=== PATIENT | female | born 1935 | race Caucasian/White ===

== ENCOUNTER 2017-09-09 11:34 | Observation (INO) ==
--- NOTE | 2017-09-09 12:17 | Emergency Department Note ---
Disposition Clinical Impression: DVT (deep venous thrombosis) Qualifiers: DVT location: lower extremity Affected thrombotic vein of extremity: unspecified vein of extremity Chronicity: acute Laterality: left Qualified Code( s): I82.402 - Acute embolism and thrombosis of unspecified deep veins of left lower extremity Anemia Qualifiers: Anemia type: other cause Other causes of anemia: other cause, not classified Qualified Code(s): D64.89 - Other specified anemias Hematuria Qualifiers: Hematuria type: gross Qualified Code(s): R31.0 - Gross hematuria GI bleeding Qualifiers: GI bleed type/associated pathology: unspecified gastrointestinal hemorrhage type Qualified Code(s): K92.2 - Gastrointestinal hemorrhage, unspecified Disposition: Admitted As Inpatient Condition: Good Time of Disposition: 15:15 General Adult HPI - General Chief complaint: ED Extremity Problem,Nontraumatic Stated complaint: DVT left leg/need filter Time Seen by Provider: 09/09/17 11:51 Source: patient Nursing Notes Reviewed: Yes Vital Signs Reviewed: Yes - History of Present Illness HPI Narrative: The patient is 82-year-old female with a past medical history of bladder cancer , hypertension, and DVT who presents today per her oncologist to have a filter placed in her left lower extremity. The patient states that last Friday she had the Doppler ultrasound on the left lower extremity that showed she had a DVT. She states that she was on Xarelto for one day but began having blood in her urine and was instructed to stop taking it by Dr. Andrew. The patient states that she saw Dr. Montoya yesterday and was instructed to take 1/2 of her Xarelto. She began having blood in her urine last night and was instructed by to come to the ED to have a filter placed in her left lower extremity since she cannot be anticoagulated. The patient admits blood in her urine for one day, increasing pressure to urinate and dysuria for approximately one week. She also admits her last radiation treatment was this past May. Patient denies any headache, vision changes, chest pain, shortness of breath, difficulty breathing, abdominal pain, numbness and tingling, vaginal discharge, weaknesses, or any focal neurological deficits. Pain Scale: 2 - Related Data Home Medications Medication Instructions Recorded Confirmed Aspirin [Lo-Dose Aspirin EC] 81 mg PO DAILY 04/22/17 09/08/17 Levothyroxine [Synthroid] 75 mcg PO DAILY 04/22/17 09/08/17 Atorvastatin [Lipitor] 40 mg PO DAILY 05/25/17 09/08/17 Isosorbide MONOnitrate (24 HR) 60 mg PO DAILY 05/25/17 09/08/17 [Imdur] Metoprolol XL (24 HR) Succ [Toprol 25 mg PO DAILY 05/25/17 09/08/17 Xl] Nitroglycerin [Nitrostat] 0.4 mg SL AD PRN 08/26/17 09/08/17 amLODIPine [Norvasc] 5 mg PO DAILY 08/26/17 09/08/17 Previous Rx's Medication Instructions Recorded Ondansetron [Zofran] 8 mg PO Q8HR PRN #60 tablet 05/05/17 Oxybutynin [Ditropan] 2.5 mg PO BID #30 tablet 06/11/17 Allergies Allergy/AdvReac Type Severity Reaction Status Date / Time Amoxicillin Allergy Unknown UNKNOWN Verified 09/09/17 11:50 cephalexin [From Keflex] Allergy Unknown UNKNOWN Verified 09/09/17 11:50 Penicillins Allergy Unknown UNKNOWN Verified 09/09/17 11:50 Review of Systems: Constitutional: No fever Vision: No blurred vision ENT: No rhinorrhea Respiratory: No cough Allergic: No allergies : Admits blood in her urine that started last night since she started a 1/2 dose of Xarelto. Admits dysuria and increase in pressure when urination. Denies difficulty urinating. GI: Denies blood in stool but is unsure due to the blood in urine Hematologic: No bruising Dermatologic: No skin rash Musculoskeletal: No pain in the extremities. Admits stinging sensation in her LLE where she has a DVT but no pain. Denies any weaknesses or difficulty ambulating. Neuro: No numbness of the extremities All systems ED: reviewed and negative except as stated. Review of Systems: As Per HPI Past Medical History - Past Medical History Medical history: Reports: cancer, DVT, GERD, hyperlipidemia, hypertension, myocardial infarction, renal disease, thyroid disease Surgical history: Reports: appendectomy, hysterectomy Psychiatric history: Reports: no psych history - Social History Smoking Status: Former smoker Smokeless Tobacco Status: No Alcohol use: Reports: none Drug use: Reports: none Physical Exam CONSTITUTIONAL: Alert and oriented X3, well-nourished, well appearing, in no apparent distress HEAD: Normocephalic; atraumatic. EYES: PERRL, no scleral icterus. NOSE: The nose is normal in appearance without rhinorrhea RESP: Normal chest excursion with respiration; breath sounds clear and equal bilaterally; no wheezes, rhonchi, or rales CARD: Regular rhythm, without murmurs, rub or gallop ABD: Non-distended; non-tender, soft,without rigidity, rebound or guarding SKIN: Normal for age and race; warm and dry; no apparent lesions EXTREMITIES: Pulses are 2 plus and equal times 4 extremities, no peripheral edema or calf muscle pain. - General General appearance: alert, in no apparent distress - Rectal Exam Target Worker present during exam: Yes (My nurse (Alexandria) was present) Rectal exam: Present: heme (+) stool, bloody stool Course Vital Signs Temperature 97.3 F L 09/09/17 11:46 Pulse Rate 64 09/09/17 11:46 Respiratory Rate 16 09/09/17 11:46 Blood Pressure 151/78 09/09/17 11:46 O2 Sat by Pulse Oximetry 99 09/09/17 11:46 Temperature 97.8 F 09/09/17 13:39 Pulse Rate 62 09/09/17 14:51 Respiratory Rate 19 09/09/17 14:51 Blood Pressure 155/65 09/09/17 14:51 O2 Sat by Pulse Oximetry 97 09/09/17 14:51 Oxygen Delivery Oxygen Delivery Room Air Medical Decision Making - [facility] Narrative Medical decision making narrative: Vitals are reviewed and are exceptionally normal. Patient is afebrile and does not appear to be in any acute distress. Labs and UA are pending to further evaluate her hematuria. CBC shows her Hgb is trending down from 8.4 to 8.1 but patient is asymptomatic. 13:40- Reassessed the patient. She denies any pain and is comfortable. Spoke with Dr. Foley who is accepting calls for Dr. Ortega. Waiting for her to call back to decide whether to admit or not. Plan to have IR place a filter in the patient's LLE and admit for observation. 13:54- Spoke to Dr. Paul from IR and he states that the IR team will see the patient. Will put consult in. 14:18- Patient will have a filter placed in her LLE and will be admitted for observation since her HgB is trending down. has accepted the patient. 14:41- radiology report from [facility] was faxed over. Duplex scan impressions states deep venous thrombus involving the left popliteal vein , gastronemius, peroneal vein, and posterior tibial vein - Lab Data Lab results reviewed: Yes I reviewed the patient's lab results. Result diagrams: 09/09/17 12:55 Lab Results 09/09/17 09/09/17 09/09/17 Range/Units 12:40 12:55 13:38 WBC 5.8 (4.3-11.1) K/mcL RBC 2.71 L (3.82-4.97) M/mcL Hgb 8.1 L (11.5-15.4) g/dL Hct 25.9 L (35.3-44.9) % MCV 95.6 (83.0-100.0) fL MCH 29.9 (28.0-33.3) pg MCHC 31.3 L (31.6-35.5) g/dL RDW 14.4 (11.5-14.5) % Plt Count 233 (140-400) K/mcL MPV 8.9 L (9.4-12.4) fL Immature Gran % 0.5 (0-4) % Seg Neutrophils % 71.0 % Lymphocytes % 12.7 % Monocytes % 10.4 % Eosinophils % 4.9 % Basophils % 0.5 % Neutrophils # 4.1 (1.6-8.9) K/mcL Lymphocytes # 0.7 (0.6-4.6) K/mcL Monocytes # 0.6 (0.0-1.3) K/mcL Eosinophils # 0.3 (0.0-0.6) K/mcL Basophils # 0.0 (0.0-0.2) K/mcL Ur Specimen Adequacy See below A Urine Color Red A (Yellow) Urine Clarity Cloudy A (Clear) Urine pH 6.5 (5.0-8.0) pH Units Ur Specific [place] 1.015 (1.010-1.025) Urine Protein >=300 H (Neg-Trace) mg/dL Urine Glucose (UA) Normal (Normal) mg/dL Urine Ketones Negative (Negative) mg/dL Urine Blood Large H (Negative) Urine Nitrite Negative (Negative) Urine Bilirubin Negative (Negative) Urine Urobilinogen Normal (Normal) mg/dL Ur Leukocyte Esterase Trace H (Negative) Ur Culture Indicated? YES A (NO) Stool Occult Blood Positive A (Negative) Attestation Statement - Attestation Attestation: I examined this patient and my medical decision-making was reviewed with the Resident Physician. I agree with the documented findings, disposition and treatment plan as described except to the extent set forth below. Hemodynamically normal, asymptomatic gradually worsening anemia. En route to [facility] now, to be admitted per recommendation of pt's oncologist. Pt and her son have been updated, are agreeable.
[2017-09-09 13:02] LABS: Basophils % 0.5 %; Eosinophils # 0.3 K/mcL (0.0-0.6); Eosinophils % 4.9 %; Hematocrit 25.9 % (35.3-44.9); Hemoglobin 8.1 g/dL (11.5-15.4); Immature Granulocytes % 0.5 % (0-4); Lymphocytes # 0.7 K/mcL (0.6-4.6); Lymphocytes % 12.7 %; Mean Corpuscular HGB Conc 31.3 g/dL (31.6-35.5); Mean Corpuscular Hemoglobin 29.9 pg (28.0-33.3); Mean Corpuscular Volume 95.6 fL (83.0-100.0); Mean Platelet Volume 8.9 fL (9.4-12.4); Monocytes # 0.6 K/mcL (0.0-1.3); Monocytes % 10.4 %; Neutrophils # 4.1 K/mcL (1.6-8.9); Platelet Count 233 K/mcL (140-400); Red Blood Count 2.71 M/mcL (3.82-4.97); Red Cell Distribution Width 14.4 % (11.5-14.5)
[2017-09-09 14:00] LABS: Clarity,Urine Cloudy (Clear); Color,Urine Red (Yellow)
[2017-09-09 14:01] LABS: Bilirubin,Urine Negative (Negative); Blood,Urine Large (Negative); Glucose,Urine (UA) Normal (Normal); Ketones,Urine Negative (Negative); Leukocyte Esterase,Urine Trace (Negative); Nitrite,Urine Negative (Negative); PH,Urine 6.5 pH Units (5.0-8.0); Protein,Urine >=300 mg/dL (Neg-Trace); Specific Gravity,Urine 1.015 (1.010-1.025); Urobilinogen,Urine Normal (Normal)
[2017-09-09] MEDS ORDERED: Heparin 1,000 UNITS/500 mL NS 500 ML ONE (14:29)
--- NOTE | 2017-09-09 15:01 | IR Procedure Note ---
Date of procedure: 09/09/17 Consent Obtained: Written consent Timeout: Correct patient and procedure verified, Correct site verified, Time out performed, Skin prep completed Local anesthetic: Lidocaine 1% Indications: GI bleed with DVT on Xeralto Procedure Performed: IVC filter and CVL placement Results/Findings: Celect filter and 7F CVL placement Complications: None; Tolerated procedure well (Monitor on floor)
[2017-09-09] MEDS ORDERED: Acetaminophen 325 MG TABLET PO PRN (15:37)
[2017-09-09] MEDS ORDERED: Naloxone 0.4 MG/ML INJ IVP PRN (15:37)
[2017-09-09] MEDS ORDERED: Ondansetron 4 MG/2 ML VIAL IVP PRN (15:37)
--- NOTE | 2017-09-09 17:16 | Internal Med History&Physical ---
<Bety Atkinson - Last Filed: 09/09/17 23:38> Date of Encounter: 09/09/17 Time of Encounter: 17:08 Assessment and Plan (1) Anemia Current visit: Yes Status: Acute The patient presented with hemoglobin of 8.1 and experiencing hematuria. Steady decline over the past couple days yesterday was 8.4 on the 12th it was 9. Patient was on Xarelto due to a DVT. We will type and screen for PRBCs transfuse 1 unit. We will like to maintain hemoglobin greater than 9 due to cardiac history 2 Stop Xarelto IVC filter placed we will hold aspirin for now as well 3 GI consult placed- day team to follow up Qualifiers: Anemia type: other cause Other causes of anemia: other cause, not classified Qualified Code(s): D64.89 - Other specified anemias (2) Bladder cancer Current visit: No Status: Chronic Patient received lot to radiation treatments in May. She is being followed by oncology which she will continue as an outpatient-consult as needed Qualifiers: Bladder location: unspecified site Qualified Code(s): C67.9 - Malignant neoplasm of bladder, unspecified (3) CAD (coronary artery disease) Current visit: No Status: Chronic 1 patient did have a non-STEMI earlier this year. No stent placement. We will continue with statin shreyas and nitrates. Withhold aspirin now for hematuria 2 continuous cardiac monitoring Qualifiers: Coronary Disease-Associated Artery/Lesion type: [place] artery [place] vs. transplanted heart: [place] heart Associated angina: without angina Qualified Code(s): I25.10 - Atherosclerotic heart disease of [place] coronary artery without angina pectoris (4) Hypothyroidism Current visit: No Status: Chronic Continue with Synthroid Qualifiers: Hypothyroidism type: unspecified Qualified Code(s): E03.9 - Hypothyroidism , unspecified (5) DVT (deep venous thrombosis) Current visit: Yes Status: Acute Patient is unable to takeXarelto due to bleeding. IVC filter has been placed Qualifiers: DVT location: lower extremity Affected thrombotic vein of extremity: unspecified vein of extremity Chronicity: acute Laterality: left Qualified Code(s): I82.402 - Acute embolism and thrombosis of unspecified deep veins of left lower extremity (6) Hematuria Current visit: Yes Status: Acute 1 patient began to experience gross hematuria after taking Xarelto we will stop Xarelto, continue to monitor Qualifiers: Hematuria type: gross Qualified Code(s): R31.0 - Gross hematuria (7) GI bleeding Current visit: Yes Status: Acute 1 patient denies any hematochezia or melena. She did have positive occult stool and ER. She has been on Xarelto-hemoglobin is 8.1 which had been trending down with past few days. We will hold Xarelto and transfuse PRBCs and continue to monitor H&H. The patient has not had a EGD or colonoscopy in several years. Qualifiers: GI bleed type/associated pathology: unspecified gastrointestinal hemorrhage type Qualified Code(s): K92.2 - Gastrointestinal hemorrhage, unspecified (8) CKD (chronic kidney disease), stage III Current visit: Yes Status: Acute 1 patient had a right nephrectomy several years ago creatinine is at baseline presently. We will continue to monitor Avoid nephrotoxins Maintain MAP greater than 60 Monitor intake and output daily weights (9) Hypertension Current visit: No Status: Chronic Presently stable we will continue with home medications amlodipine and metoprolol Qualifiers: Hypertension type: essential hypertension Qualified Code(s): I10 - Essential (primary) hypertension Internal Medicine - H&P: HPI Chief complaint: Hematuria Admitted From: Emergency Dept Plans for Post Hospital Care: Home History of present illness: Ms. Tamez is a 82 year old female past medical history of GERD and hyperlipidemia hypertension non-STEMI 03/2017 renal disease thyroid disease bladder cancer DVT. Coronary the patient she has been undergoing treatment for bladder cancer she received her last radiation treatment in May of this year. On Friday she had a Doppler ultrasound of lower extremity which did not show a DVT left popliteal vein gastonemis paroneal vein posterior tibial vein. She was placed on Xarelto however after one day she began to experience hematuria she was advised by Dr. Andrew to stop taking Xarlto . She saw Dr Montoya yesterday at that time was advised to take half of her Xarelto. She again began to experience hematuria overnight she was then advised by Dr. Ferrell to come to the ER and have a IVC filter placed since she is unable to tolerate anticoagulation. Patient denies any chest pain shortness of breath abdominal pain nausea vomiting, she does admit to increasing pressure when she urinates and dysuria which has been going on for approximately a week. She denies any hematemesis hematochezia or melena. Her Hemoccult was positive in the ER She has not had an EGD her last colonoscopy was several years ago and she does not recall the results. She has been admitted for further workup and evaluation. Presently she is hemodynamically with no signs or symptoms of active bleeding she denies any chest pain or shortness of breath. I reviewed this case with Dr. Rodrigues who agrees with plan. Past Med Surg Social Fam HX - Past Medical History Medical history: cancer, DVT, GERD, hyperlipidemia, hypertension, myocardial infarction, renal disease, thyroid disease Psychiatric history: no psych history - Past Surgical History Surgical History: appendectomy, hysterectomy - Social History Smoking Status: Former smoker Smokeless Tobacco Status: No Alcohol use: none Drug use: none - Family History Brother Hx Family Endocrine Disorder: Yes (DM) Internal Medicine - H&P: Meds Aspirin [Lo-Dose Aspirin EC] 81 mg PO DAILY 04/22/17 [History] Levothyroxine [Synthroid] 75 mcg PO QAM 04/22/17 [History] Atorvastatin [Lipitor] 40 mg PO HS 05/25/17 [History] Isosorbide MONOnitrate (24 HR) [Imdur] 60 mg PO DAILY 05/25/17 [History] Metoprolol XL (24 HR) Succ [Toprol Xl] 25 mg PO DAILY 05/25/17 [History] Oxybutynin [Ditropan] 2.5 mg PO BID #30 tablet 06/11/17 [Rx] Nitroglycerin [Nitrostat] 0.4 mg SL Q5M PRN 08/26/17 [History] amLODIPine [Norvasc] 5 mg PO DAILY 08/26/17 [History] 3 Allergy/AdvReac Type Severity Reaction Status Date / Time Amoxicillin Allergy Unknown UNKNOWN Verified 09/09/17 11:50 cephalexin [From Keflex] Allergy Unknown UNKNOWN Verified 09/09/17 11:50 Penicillins Allergy Unknown UNKNOWN Verified 09/09/17 11:50 All Systems PM: A 10-system review of systems was performed and is negative for pertinent findings except as documented above in the HPI. - Constitutional Constitutional: no chills, no fever(s), no night sweats - EENT Eyes: no change in vision, no discharge, no pain, no photophobia Nose, mouth and throat: no dysphagia, no nasal discharge, no neck pain, no sore throat - Cardiovascular Cardiovascular ROS IM: no chest pain, no diaphoresis, no dyspnea, no lightheadedness, no palpitations, no syncope - Respiratory Respiratory: no cough, no dyspnea, no wheezing, no excessive phlegm production - Gastrointestinal Gastrointestinal: no abdominal pain, no diarrhea, no hematemesis, no hematochezia, no melena, no nausea, no vomiting - Genitourinary Genitourinary: hematuria, urinary frequency, urinary urgency - Musculoskeletal Musculoskeletal ROS IM: no numbness, no tingling - Integumentary Integumentary IM: no rash, no unusual bruising - Neurological Neurological ROS: no confusion, no convulsions, no focal weakness, no numbness, no tingling, no tremor(s) - Hematologic/Lymphatic Hematologic/Lymphatic: no easy bruising - Constitutional Vitals: Temp Pulse Resp BP Pulse Ox 97.4 F L 82 18 136/67 97 09/09/17 15:24 09/09/17 15:24 09/09/17 15:24 09/09/17 15:24 09/09/17 15:24 General appearance: Present: A&O X 3, answers questions appropriately - Head Head exam: Present: atraumatic, normocephalic - Eye Eye exam: Present: PERRL, conjuntiva pink, sclera anicteric Pupils: Present: PERRL - Neck Neck exam general surgery: Present: supple, trachea midline. Absent: lymphadenopathy - Respiratory Respiratory exam: Present: CTAB. Absent: accessory muscle use, rales, rhonchi, wheezes - Cardiovascular Cardiovascular exam: Present: RRR, +S1, +S2, systolic murmur. Absent: diastolic murmur, gallop, rubs - GI/Abdominal GI/Abdominal exam: Present: normal bowel sounds, soft, no peritoneal signs. Absent: distended, tenderness - Extremities Exam Extremities exam: Present: warm, radial pulses palpable and symmetrical. Absent : calf tenderness, cyanotic, pedal edema - Neurological Exam Neurological exam: Present: CN II-XII intact, oriented X3, no focal deficits. Absent: pronater drift, facial droop, speech deficit - Skin Skin exam: Present: dry, intact, pallor Internal Med - H&P Results - Labs CBC & Chem 7: 09/09/17 19:38 - Diagnostic Studies Other Images Additional comments: Guidance Needle Placement Ultrasound 09/09/17 00:00 IMPRESSION: 1. Infrarenal inferior vena cava filter placement. 2. Right central venous line placement as discussed above. D/ / Kai Gonzalez MD / Kai Gonzalez MD Interpreting Provider: Kai Gonzalez MD Filter Placement 09/09/17 00:00 IMPRESSION: 1. Infrarenal inferior vena cava filter placement. 2. Right central venous line placement as discussed above. D/ / Kai Gonzalez MD / Kai Gonzalez MD Interpreting Provider: Kai Gonzalez MD Insertion Non-Tunneled Catheter 09/09/17 00:00 IMPRESSION: 1. Infrarenal inferior vena cava filter placement. 2. Right central venous line placement as discussed above. D/ / Kai Gonzalez MD / Kai Gonzalez MD Interpreting Provider: Kai Gonzalez MD <Doe Rodrigues - Last Filed: 09/10/17 09:30> Date of Encounter: 09/09/17 Internal Medicine - H&P: HPI History of present illness: Ms. Tamez is a 82 year old female All Systems PM: A 10-system review of systems was performed and is negative for pertinent findings except as documented above in the HPI. - Constitutional Vitals: Temp Pulse Resp BP Pulse Ox 97.4 F L 82 18 136/67 97 09/09/17 15:24 09/09/17 15:24 09/09/17 15:24 09/09/17 15:24 09/09/17 15:24 Internal Med - H&P Results - Labs CBC & Chem 7: 09/10/17 05:41 09/10/17 05:41 - Attending Attestation I independently obtained history and examined this patient and my medical decision-making was reviewed with the nurse practitioner, Bety Atkinson. I agree with the documented findings, disposition and treatment plan as described. My findings are summarized below: Patient is in no acute distress. Heart is regular, lungs are clear. No significant lower extremity edema appreciated. Plan: Hold anticoagulation. Transfuse 1 unit PRBC. Consult gastroenterology.
[2017-09-09] MEDS ORDERED: Nitroglycerin 0.4 MG TAB.SUBL SL PRN (17:20)
[2017-09-09 20:05] LABS: Hematocrit 23.1 % (35.3-44.9); Hemoglobin 7.3 g/dL (11.5-15.4)
--- NOTE | 2017-09-09 20:05 | Event Note ---
Date of Encounter: 09/09/17 Time of Encounter: 20:03 I independently obtained history and examined this patient and my medical decision-making was reviewed with the nurse practitioner. I agree with the documented findings, disposition and treatment plan as described. My findings are summarized below: Patient reports several days of dark urine, generalized weakness. She was found to have gross hematuria she after she was started on treatment with Xarelto for lower extremity DVT. On exam she is in no acute distress. Heart is regular. Lungs are clear. Lower extremity with no significant edema. Plan: Stop anticoagulation. She had a IVC filter placed this morning. We will transfuse 1 unit PRBC. Check hemoglobin in the morning. Consult GI due to anemia and positive fecal occult blood testing. Doe Rodrigues MD
[2017-09-09] MEDS: Pantoprazole 40 MG VIAL IVP SCH (22:08)
[2017-09-10] MEDS ORDERED: 0.9 % Sodium Chloride 250 ML ONE (01:01)
[2017-09-10] MEDS: Pantoprazole 40 MG VIAL IVP SCH (05:34)
[2017-09-10 05:58] LABS: Basophils # 0.1 K/mcL (0.0-0.2); Basophils % 0.9 %; Eosinophils # 0.4 K/mcL (0.0-0.6); Eosinophils % 5.3 %; Hematocrit 27.2 % (35.3-44.9); Hemoglobin 8.6 g/dL (11.5-15.4); Immature Granulocytes % 0.5 % (0-4); Lymphocytes # 0.7 K/mcL (0.6-4.6); Lymphocytes % 11.1 %; Mean Corpuscular HGB Conc 31.6 g/dL (31.6-35.5); Mean Corpuscular Hemoglobin 29.5 pg (28.0-33.3); Mean Corpuscular Volume 93.2 fL (83.0-100.0); Mean Platelet Volume 9.2 fL (9.4-12.4); Monocytes # 0.8 K/mcL (0.0-1.3); Neutrophils # 4.7 K/mcL (1.6-8.9); Platelet Count 205 K/mcL (140-400); Red Blood Count 2.92 M/mcL (3.82-4.97); Red Cell Distribution Width 14.5 % (11.5-14.5); Segmented Neutrophils % 70.2 %
[2017-09-10 06:07] LABS: Calcium 9.3 mg/dL (8.6-10.8); Potassium 4.2 mEq/L (3.5-4.5)
[2017-09-10] MEDS ORDERED: amLODIPine 5 MG TABLET PO SCH (09:00)
[2017-09-10] MEDS ORDERED: Metoprolol XL (24 HR) Succ 25 MG TAB.ER.24H PO SCH (09:00)
[2017-09-10] MEDS ORDERED: Isosorbide MONOnitrate (24 HR) 60 MG TAB.ER.24H PO SCH (09:00)
[2017-09-10 14:20] VITALS: BP 115/68
--- NOTE | 2017-09-10 14:46 | Discharge Summary ---
Date of Encounter: 09/10/17 Time of Encounter: 09:00 - Discharge Diagnosis (1) S/P insertion of IVC (inferior vena caval) filter Priority: Primary Status: Acute (2) Hematuria Priority: Primary Status: Acute Qualifiers: Hematuria type: gross Qualified Code(s): R31.0 - Gross hematuria (3) Bladder cancer Priority: Secondary Status: Chronic Qualifiers: Bladder location: unspecified site Qualified Code(s): C67.9 - Malignant neoplasm of bladder, unspecified (4) Diabetes mellitus Priority: Secondary Status: Chronic Qualifiers: Diabetes mellitus type: type 2 Diabetes mellitus complication status: with unspecified complications Diabetes mellitus intermediate insulin use: without intermediate use Qualified Code(s): E11.8 - Type 2 diabetes mellitus with unspecified complications (5) CAD (coronary artery disease) Priority: Secondary Status: Chronic Qualifiers: Coronary Disease-Associated Artery/Lesion type: [place] artery [place] vs. transplanted heart: [place] heart Associated angina: without angina Qualified Code(s): I25.10 - Atherosclerotic heart disease of [place] coronary artery without angina pectoris (6) Hypertension Priority: Secondary Status: Chronic Qualifiers: Hypertension type: essential hypertension Qualified Code(s): I10 - Essential (primary) hypertension (7) Hypothyroidism Priority: Secondary Status: Chronic Qualifiers: Hypothyroidism type: unspecified Qualified Code(s): E03.9 - Hypothyroidism , unspecified (8) Anemia Priority: Primary Status: Acute Qualifiers: Anemia type: other cause Other causes of anemia: acute posthemorrhagic Qualified Code(s): D62 - Acute posthemorrhagic anemia (9) DVT (deep venous thrombosis) Priority: Secondary Status: Chronic Qualifiers: DVT location: lower extremity Affected thrombotic vein of extremity: unspecified vein of extremity Chronicity: acute Laterality: left Qualified Code(s): I82.402 - Acute embolism and thrombosis of unspecified deep veins of left lower extremity (10) CKD (chronic kidney disease), stage III Priority: Secondary Status: Chronic - Discharge Medications Home Medications: Aspirin [Lo-Dose Aspirin EC] 81 mg PO DAILY 04/22/17 [History] Levothyroxine [Synthroid] 75 mcg PO QAM 04/22/17 [History] Atorvastatin [Lipitor] 40 mg PO HS 05/25/17 [History] Isosorbide MONOnitrate (24 HR) [Imdur] 60 mg PO DAILY 05/25/17 [History] Metoprolol XL (24 HR) Succ [Toprol Xl] 25 mg PO DAILY 05/25/17 [History] Oxybutynin [Ditropan] 2.5 mg PO BID #30 tablet 06/11/17 [Rx] Nitroglycerin [Nitrostat] 0.4 mg SL Q5M PRN 08/26/17 [History] amLODIPine [Norvasc] 5 mg PO DAILY 08/26/17 [History] Allergies/Adverse Reactions: 3 Allergy/AdvReac Type Severity Reaction Status Date / Time Amoxicillin Allergy Unknown UNKNOWN Verified 09/09/17 11:50 cephalexin [From Keflex] Allergy Unknown UNKNOWN Verified 09/09/17 11:50 Penicillins Allergy Unknown UNKNOWN Verified 09/09/17 11:50 Date of admission: 09/09/17 14:45 Primary care physician: Shan Amaya Consults: 09/10/17 07:31 Consult to Physical Therapy [CONS] Routine Comment: Evaluate, develop and implement POC Reason for Consult: discharge planning OT [Consult to Occupational Therapy] [CONS] Routine Comment: Evaluate, develop and implement POC Reason for Consult: discharge planning Discharging clinician: Ca Turner Anticipated date of discharge: 09/10/17 - Patient Status Disposition: Home, Self-Care Condition: Good Functional capacity at discharge: uses cane/walker Overall status at discharge: patient is progressing back to baseline - Discharge Instructions Follow Up With: Shan Amaya [Primary Care Provider] - 09/18/17 2:00 pm (Dr. Amaya will be out of the office and you will be seeing another provider that day. Thank you) Julio Montoya MD [Partnered Physician] - 10/01/17 9:20 am Additional Instructions: F/up with PCP in 1-2 weeks F/up with Oncology in 1 week - Diet and Activity Activity: as per physical therapy Diet: diabetic diet, low fat, low cholesterol, low salt diet Hospital course: Ms. Tamez is a 82 year old female with history of bladder cancer, presents with complaints of gross hematuria. Patient was recently diagnosed with left leg DVT around 2 weeks back and was started on anticoagulation with Xarelto, since when she has been having issues with bleeding. Xarelto is currently on hold. Patient received IVC filter by interventional radiology to prevent pulmonary embolism, as she is not a candidate for anticoagulation. Patient did well during this hospitalization, remained hemodynamically stable and her hemoglobin is stable after receiving 1 unit PRBC transfusion. Patient does have positive stool occult blood although does not report hematochezia or melena and will be followed by PCP, does not require urgent GI workup at this time. Patient is anxious to be discharged home today and is otherwise medically stable. - Time Spent with Patient Total time spent providing and/or coordinating discharge services: Greater than 30 minutes (40 min) - Constitutional Vitals: Temp Pulse Resp BP Pulse Ox 97.9 F 57 14 115/68 95 09/10/17 14:18 09/10/17 14:18 09/10/17 14:18 09/10/17 14:18 09/10/17 14:18 General appearance: Present: A&O X 3, answers questions appropriately - Respiratory Respiratory exam: Present: CTAB. Absent: accessory muscle use, rales, rhonchi, wheezes - Cardiovascular Cardiovascular exam: Present: RRR, +S1, +S2. Absent: diastolic murmur, gallop, rubs, systolic murmur
--- NOTE | 2017-09-10 14:50 | Physician Discharge Referral ---
Home Health/Hosp Referral Info Transfer to: Home Health Attending Provider: Ca Turner Provider in Charge Post Discharge: PCP - Diagnosis (1) S/P insertion of IVC (inferior vena caval) filter Priority: Primary Status: Acute (2) Hematuria Priority: Primary Status: Acute (3) Bladder cancer Priority: Secondary Status: Chronic (4) Diabetes mellitus Priority: Secondary Status: Chronic (5) CAD (coronary artery disease) Priority: Secondary Status: Chronic (6) Hypertension Status: Chronic (7) Hypothyroidism Priority: Secondary Status: Chronic (8) Anemia Priority: Primary Status: Acute (9) DVT (deep venous thrombosis) Priority: Secondary Status: Chronic (10) CKD (chronic kidney disease), stage III Priority: Secondary Status: Chronic - Respiratory Orders Smoking Cessation: Smoking cessation has been advised. For more information, call the [place] Tobacco Quit Line at 6-549-APWY-NOW. - Diet/Nutrition Diet/Nutrition Orders: Cardiac, No Concentrated Sweets (diabetic) - Activity Activity Orders: Ambulate, Walker - Services Needed Following services are medically necessary services: Nursing, Physical Therapy, Occupational Therapy - Transfer Medications Home Medications: Aspirin [Lo-Dose Aspirin EC] 81 mg PO DAILY 04/22/17 [History] Levothyroxine [Synthroid] 75 mcg PO QAM 04/22/17 [History] Atorvastatin [Lipitor] 40 mg PO HS 05/25/17 [History] Isosorbide MONOnitrate (24 HR) [Imdur] 60 mg PO DAILY 05/25/17 [History] Metoprolol XL (24 HR) Succ [Toprol Xl] 25 mg PO DAILY 05/25/17 [History] Oxybutynin [Ditropan] 2.5 mg PO BID #30 tablet 06/11/17 [Rx] Nitroglycerin [Nitrostat] 0.4 mg SL Q5M PRN 08/26/17 [History] amLODIPine [Norvasc] 5 mg PO DAILY 08/26/17 [History] Allergies/Adverse Reactions: 3 Allergy/AdvReac Type Severity Reaction Status Date / Time Amoxicillin Allergy Unknown UNKNOWN Verified 09/09/17 11:50 cephalexin [From Keflex] Allergy Unknown UNKNOWN Verified 09/09/17 11:50 Penicillins Allergy Unknown UNKNOWN Verified 09/09/17 11:50 Certification: Further, I certify that my clinical findings support that this patient is homebound (i.e. absences from home require considerable and taxing effort and are for medical reasons or taoist services or infrequently or short duration when for other reasons) because: Homebound Reason: Patient requires assistance of a person or device to safely leave home, Leaving home requires considerable and taxing effort due to condition Attestation: My signature below is to certify that this patient is under my care and that I, or nurse practitioner, or a physician's optometric assistant working with me, has a face-to -face encounter with this patient.
== END 2017-09-10 16:15 | disposition home or self-care (01) ==
LOC: 3ANU 11:34 → EMEROO 11:34 → 3ANU 15:18
PROVIDERS: ADMIT Internal Medicine; ATTEND Internal Medicine

== ENCOUNTER 2017-12-09 18:30 | Inpatient (IN) ==
--- NOTE | 2017-12-09 21:26 | Internal Med History&Physical ---
<Daniel Avina - Last Filed: 12/09/17 23:59> Date of Encounter: 12/09/17 Time of Encounter: 21:21 Assessment and Plan (1) Anemia Current visit: Yes Status: Acute Patient is being transfused 2 units packed red blood cells from outlying facility. Patient's symptoms have improved. Repeat hemoglobin every 4 hours. Patient likely needs further investigation with regards to anemia. We will continue to monitor patient's vital signs and symptoms accordingly. Qualifiers: Anemia type: unspecified type Qualified Code(s): D64.9 - Anemia, unspecified (2) GI bleeding Current visit: Yes Status: Acute Patient has been experiencing history of GI bleed with current melena and hematochezia. Previous investigation demonstrated colitis where the patient finished Cipro and Flagyl roughly 1 month ago. The patient likely will need further imaging with regards to current GI bleeding but we will continue to monitor. Qualifiers: GI bleed type/associated pathology: unspecified gastrointestinal hemorrhage type Qualified Code(s): K92.2 - Gastrointestinal hemorrhage, unspecified (3) Acute on chronic renal failure Current visit: No Status: Acute The patient administered IV hydration through IV fluids. The patient does have chronic kidney disease stage III. Patient's creatinine is mildly elevated at this time. We will continue to monitor and likely trending back to baseline. Qualifiers: Acute renal failure type: unspecified Chronic kidney disease stage: stage 4 (severe) Qualified Code(s): N17.9 - Acute kidney failure, unspecified; N18.4 - Chronic kidney disease, stage 4 (severe) (4) Elevated troponin I level Current visit: No Status: Acute Patient has elevated troponin. There may be a component of associated with the patient's LESLIE but with concern for previous history of CAD and likely demand ischemia associated with patient's anemia we will continue to trend the patient' s troponin. The patient is currently chest pain-free. EKG demonstrates no acute changes from previous EKG on record. We will consult cardiology. (5) Bladder cancer Current visit: No Status: Chronic Qualifiers: Bladder location: unspecified site Qualified Code(s): C67.9 - Malignant neoplasm of bladder, unspecified (6) Diabetes mellitus Current visit: No Status: Chronic Qualifiers: Diabetes mellitus type: type 2 Diabetes mellitus complication status: with unspecified complications Diabetes mellitus retirement insulin use: without retirement use Qualified Code(s): E11.8 - Type 2 diabetes mellitus with unspecified complications (7) CAD (coronary artery disease) Current visit: No Status: Chronic Qualifiers: Coronary Disease-Associated Artery/Lesion type: [place] artery [place] vs. transplanted heart: [place] heart Associated angina: without angina Qualified Code(s): I25.10 - Atherosclerotic heart disease of [place] coronary artery without angina pectoris (8) Hypertension Current visit: No Status: Chronic Continue daily medications as prescribed. Qualifiers: Hypertension type: essential hypertension Qualified Code(s): I10 - Essential (primary) hypertension (9) Hypothyroidism Current visit: No Status: Chronic Continue daily medications as prescribed. Qualifiers: Hypothyroidism type: unspecified Qualified Code(s): E03.9 - Hypothyroidism , unspecified Internal Medicine - H&P: HPI Chief complaint: Weakness Admitted From: Hospital to Hospital Transfer Plans for Post Hospital Care: Home History of present illness: Ms. Tamez is a 82 year old female with history of bladder mass arrives as a transfer from [facility] [place] with concern for blood in stool and hemoglobin of 5.3. The patient states that she has been experiencing intermittent black and bloody stools over the course the past month. The patient states this worsened over the past few days and this morning was continuing. The patient states that there is some bright red blood but states it is mostly black and dark colored. The patient states that today she continued to experience a large amount of weakness to the point where she would stood up and she felt very weak and felt palpitations and slightly short of breath. In addition the patient noted that when she looked in the mirror she was very pale. He was at that time she called EMS. EMS transported the patient to [facility] [place] for further care and workup. At [facility] labs were drawn which demonstrated an anemia with a hemoglobin of 5.3. The patient's platelet count was 214, no leukocytosis, the patient does have an elevated BUNs of 20.0 as well as an elevated creatinine at 1.33. The patient's electrolytes are otherwise within normal limits. A CT scan of the patient's abdomen was performed at outlying facility which demonstrated a 6 cm mass like wall thickening of the anterior aspect of the urinary bladder. In addition there is noted inflammation and soft tissue thickening in the pelvis which may be associated with the post treatment. There is a history of right nephrectomy. There is an indeterminate at 5.6 cm stricture with in the hemipelvis noted to possible prior hysterectomy. No other acute changes noted with the exception of further evaluation of masses within the pelvis. Contrast CT was recommended per etiology read at [facility]. The patient was started and transfused 2 units of packed red blood cells. In addition the patient was noted to have an elevated troponin of 0.11. This is an elevation on a scale from their facility. The patient is denying any active chest pain at this time. She does state however that she did experience some intermittent episodes of chest pain during the episode of shortness of breath when she was ambulating earlier today. The patient states she is feeling much better after receiving the units of blood and is resting comfortably with no tachycardia, no hypotension and no oxygen desaturation. She is answering all questions appropriately and following all commands. Past Med Surg Social Fam HX - Past Medical History Attestation: Yes The following information was validated with the patient. Source: patient, old records reviewed Medical history: cancer, DVT, GERD, hyperlipidemia, hypertension, myocardial infarction, renal disease, thyroid disease Psychiatric history: no psych history - Past Surgical History Surgical History: appendectomy, hysterectomy - Social History Smoking Status: Former smoker Smokeless Tobacco Status: No Alcohol use: none Drug use: none Current living situation: Home Activity Level: Independent ambulation - Family History Brother Hx Family Endocrine Disorder: Yes (DM) Internal Medicine - H&P: Meds Aspirin [Lo-Dose Aspirin EC] 81 mg PO DAILY 04/22/17 [History] Levothyroxine [Synthroid] 75 mcg PO QAM 04/22/17 [History] Atorvastatin [Lipitor] 40 mg PO HS 05/25/17 [History] Isosorbide MONOnitrate (24 HR) [Imdur] 60 mg PO DAILY 05/25/17 [History] Nitroglycerin [Nitrostat] 0.4 mg SL Q5M PRN 08/26/17 [History] amLODIPine [Norvasc] 5 mg PO DAILY 08/26/17 [History] Lisinopril [Zestril] 5 mg PO DAILY 10/28/17 [History] 3 Allergy/AdvReac Type Severity Reaction Status Date / Time Amoxicillin Allergy Unknown UNKNOWN Verified 12/09/17 21:50 cephalexin [From Keflex] Allergy Unknown UNKNOWN Verified 12/09/17 21:50 Penicillins Allergy Unknown UNKNOWN Verified 12/09/17 21:50 All Systems PM: A 10-system review of systems was performed and is negative for pertinent findings except as documented above in the HPI. - Constitutional Constitutional: no chills, no fever(s), no night sweats - Cardiovascular Cardiovascular ROS IM: chest pain, dyspnea on exertion, lightheadedness, palpitations - Respiratory Respiratory: dyspnea on exertion, no cough, no wheezing - Gastrointestinal Gastrointestinal: abdominal pain, cramping, hematochezia, melena, no diarrhea, no hematemesis, no nausea, no vomiting - Genitourinary Genitourinary: urinary incontinence (Baseline), no change in urinary stream, no dysuria, no flank pain, no hematuria - Musculoskeletal Musculoskeletal ROS IM: no numbness, no tingling - Integumentary Integumentary IM: no rash, no unusual bruising - Neurological Neurological ROS: no confusion, no convulsions, no focal weakness, no numbness, no tingling, no tremor(s) - Constitutional Vitals: Temp Pulse Resp BP Pulse Ox 98.2 F 95 18 148/74 100 12/09/17 20:19 12/09/17 20:19 12/09/17 20:19 12/09/17 20:19 12/09/17 20:19 General appearance: Present: A&O X 3, pleasant, no acute distress - Head Head exam: Present: atraumatic, normocephalic - Eye Eye exam: Present: PERRL, conjuntiva pink, sclera anicteric Pupils: Present: PERRL - Neck Neck exam general surgery: Present: supple, trachea midline. Absent: lymphadenopathy - Respiratory Respiratory exam: Present: CTAB. Absent: accessory muscle use, rales, rhonchi, wheezes - Cardiovascular Cardiovascular exam: Present: RRR, +S1, +S2. Absent: diastolic murmur, gallop, rubs, systolic murmur - GI/Abdominal GI/Abdominal exam: Present: soft, tenderness (Lower abdomen), no peritoneal signs. Absent: distended, guarding, pulsatile mass, rebound, rigid - Extremities Exam Extremities exam: Present: warm, radial pulses palpable and symmetrical. Absent : calf tenderness, cyanotic, pedal edema - Neurological Exam Neurological exam: Present: CN II-XII intact, oriented X3, no focal deficits. Absent: pronater drift, facial droop, speech deficit - Skin Skin exam: Present: dry, intact Internal Med - H&P Results - Labs CBC & Chem 7: 12/09/17 22:20 - EKG Data EKG comments: 12/09/17 21:29 Heart rate 66 bpm. [place] interval 267 ms. QTc 472 ms. Normal sinus rhythm with first-degree AV block. Right bundle branch block noted. No ST elevation or ST depression noted. EKG similar to EKG performed at outlying facility earlier today. <[email or web address] - Last Filed: 12/10/17 03:12> Date of Encounter: 12/10/17 Time of Encounter: 01:45 - EENT Eyes: no blurry vision, no change in vision Ears: no tinnitus Nose, mouth and throat: no nasal congestion, no sinus pressure, no sore throat - Cardiovascular Cardiovascular ROS IM: dyspnea on exertion, lightheadedness, no chest pain, no dyspnea - Respiratory Respiratory: no hemoptysis - Musculoskeletal Musculoskeletal ROS IM: no arthralgias, no joint swelling - Integumentary Integumentary IM: no jaundice - Neurological Neurological ROS: weakness, no focal weakness, no frequent falls - Psychiatric Psychiatric: no anxiety, no depression - Endocrine Endocrine IM: no polydipsia, no polyuria - Allergic/Immunologic Allergic/Immunologic: wheezing, no GI upset with certain foods - Constitutional Vitals: Temp Pulse Resp BP Pulse Ox 97.2 F L 63 18 113/86 98 12/10/17 00:53 12/10/17 00:53 12/10/17 00:53 12/10/17 00:53 12/10/17 00:53 General appearance: Present: cooperative, A&O X 3, pleasant, no acute distress, answers questions appropriately - Eye Eye exam: Present: PERRL. Absent: scleral icterus - ENT ENT exam: Present: mucous membranes dry, normal exam - Neck Neck exam general surgery: Present: supple. Absent: tenderness - Respiratory Respiratory exam: Present: CTAB. Absent: rales, rhonchi, wheezes - Cardiovascular Cardiovascular exam: Present: RRR, +S1, +S2. Absent: diastolic murmur, systolic murmur - GI/Abdominal GI/Abdominal exam: Present: soft, tenderness (mild lower abdomen) - Extremities Exam Extremities exam: Present: full ROM, warm, radial pulses palpable and symmetrical. Absent: calf tenderness, pedal edema - Back Exam Back exam: Absent: CVA tenderness (L), CVA tenderness (R) - Neurological Exam Neurological exam: Present: alert, CN II-XII intact, oriented X3, no focal deficits - Psychiatric Psychiatric exam: Present: normal affect, normal mood - Skin Skin exam: Present: dry, warm. Absent: rash Internal Med - H&P Results - Labs CBC & Chem 7: 12/10/17 01:58 Labs: Short CBC 12/09/17 12/10/17 Range/Units 22:20 01:58 WBC 5.8 5.8 (4.3-11.1) K/mcL Hgb 6.3 L 6.0 L* (11.5-15.4) g/dL Hct 20.4 L 19.4 L (35.3-44.9) % Plt Count 201 196 (140-400) K/mcL Neutrophils # 4.0 3.7 (1.6-8.9) K/mcL Cardiac Enzymes 12/09/17 12/10/17 Range/Units 22:20 01:58 Troponin I 1.03 H* 2.04 H* (< 0.04) ng/mL - EKG Data -: EKG Interpreted by Myself - EKG Data EKG comments: 12/10/17 03:03 Sinus rhythm with RBBB; no acute ST-T changes - Attending Attestation I discussed the patient [place], PMH, ROS, lab data, and exam findings with Dr. Avina. I then saw and examined patient independently as well. Patient reports rectal bleeding off and on since last admission with more pronounced rectal bleeding over the last few days. She denies any chest pain or pressure. However, she did complain of some dyspnea on exertion recently. She did receive one unit of PRBC at [facility] and is awaiting PRBC products now, but there is a delay due to antibodies in her blood. Troponin has climbed, but she again is chest pain free and asymptomatic resting in bed. We can not place her on Heparin drip due to her acute blood loss anemia. Cardiolgy and GI are both consulted and we will need guidance from them regarding further intervention, if she is a candidate. For now, she needs blood/PRBC not only for her acute anemia but also for her angina. Other than my comments above and noted exam findings, I agree with Dr. Avina's assessment and plan.
[2017-12-09 22:29] LABS: Basophils % 0.3 %; Eosinophils # 0.1 K/mcL (0.0-0.6); Eosinophils % 1.9 %; Hematocrit 20.4 % (35.3-44.9); Hemoglobin 6.3 g/dL (11.5-15.4); Immature Granulocytes % 0.5 % (0-4); Lymphocytes # 0.9 K/mcL (0.6-4.6); Lymphocytes % 14.9 %; Mean Corpuscular HGB Conc 30.9 g/dL (31.6-35.5); Mean Corpuscular Hemoglobin 26.8 pg (28.0-33.3); Mean Corpuscular Volume 86.8 fL (83.0-100.0); Mean Platelet Volume 9.2 fL (9.4-12.4); Monocytes # 0.8 K/mcL (0.0-1.3); Monocytes % 13.8 %; Platelet Count 201 K/mcL (140-400); Red Blood Count 2.35 M/mcL (3.82-4.97); Red Cell Distribution Width 15.4 % (11.5-14.5); Segmented Neutrophils % 68.6 %
[2017-12-10] MEDS: 0.9 % Sodium Chloride 1,000 ML IVC SCH ×3 (00:12→21:49)
[2017-12-10 02:31] LABS: Basophils % 0.3 %; Eosinophils # 0.2 K/mcL (0.0-0.6); Eosinophils % 3.8 %; Hematocrit 19.4 % (35.3-44.9); Immature Granulocytes % 0.3 % (0-4); Immature Platelets 1.4 % (1.1-6.1); Lymphocytes # 0.9 K/mcL (0.6-4.6); Lymphocytes % 15.1 %; Mean Corpuscular HGB Conc 30.9 g/dL (31.6-35.5); Mean Corpuscular Hemoglobin 26.7 pg (28.0-33.3); Mean Corpuscular Volume 86.2 fL (83.0-100.0); Mean Platelet Volume 9.2 fL (9.4-12.4); Monocytes # 0.9 K/mcL (0.0-1.3); Monocytes % 16.2 %; Neutrophils # 3.7 K/mcL (1.6-8.9); Platelet Count 196 K/mcL (140-400); Red Blood Count 2.25 M/mcL (3.82-4.97); Red Cell Distribution Width 15.3 % (11.5-14.5); Segmented Neutrophils % 64.3 %
[2017-12-10 08:32] LABS: Basophils % 0.7 %; Eosinophils # 0.3 K/mcL (0.0-0.6); Eosinophils % 4.6 %; Hematocrit 20.2 % (35.3-44.9); Hemoglobin 6.2 g/dL (11.5-15.4); Immature Granulocytes % 0.4 % (0-4); Lymphocytes # 0.7 K/mcL (0.6-4.6); Lymphocytes % 12.5 %; Mean Corpuscular HGB Conc 30.7 g/dL (31.6-35.5); Mean Corpuscular Hemoglobin 26.6 pg (28.0-33.3); Mean Corpuscular Volume 86.7 fL (83.0-100.0); Mean Platelet Volume 9.5 fL (9.4-12.4); Monocytes # 0.9 K/mcL (0.0-1.3); Monocytes % 16.1 %; Neutrophils # 3.7 K/mcL (1.6-8.9); Platelet Count 185 K/mcL (140-400); Red Blood Count 2.33 M/mcL (3.82-4.97); Red Cell Distribution Width 15.3 % (11.5-14.5); Segmented Neutrophils % 65.7 %
--- NOTE | 2017-12-10 08:41 | Cardiology Consult Note ---
Date of Encounter: 12/10/17 Time of Encounter: 08:38 Assessment and Plan (1) Elevated troponin Current Visit: No Status: Acute Patient with troponin of 0.11 at outside hospital. 1.03 yesterday, 2.04 today (). Echocardiogram on 10/29/2017 LVEF 60%, normal LV camber size, wall thickness and function. Moderate left ventricular diastolic dysfunction. Moderate to severely dilated left atrium. Mild tricuspid regurgitation. Mild pulmonary hypertension. Patient admitted to hospital for symptomatic anemia, currently undergoing transfusion (1 unit of PRBC prior to transfer to [facility], 2 units today). Elevated troponins likely secondary to NSTEMI. Patient's most recent LHC in July 2017 at [facility]. Medical Records obtained this morning indicated blockage in ramus of 90%, unable to undergo PCI 2/2 proximal location to LAD. This was corroborated by patient that she did not receive any interventions during last heart cath as it was considered too high risk. -Patient with profound anemia, unable to utilize anti-coagulation/ACS protocol. -Will continue to optimize medical management as patient is stable and chest pain free. -FU echocardiogram (2) CAD (coronary artery disease) Current Visit: No Status: Chronic Patient reports history of LHC at [facility] without any stents or interventions. -Medical Record of LHC indicate high risk lesion in ramus. No interventions undertaken. -Continue Aspirin, lipitor, and lisinopril. -Will continue to monitor clinically. Qualifiers: Qualified Code(s): I25.10 - Atherosclerotic heart disease of [place] coronary artery without angina pectoris (3) Anemia Current Visit: Yes Status: Acute Patient received 1 unit of PRBC at [facility]. 2 units of PRBC today (12/10/2016). -Profound anemia likely contributing to elevated troponin. -Continue management per primary team. Qualifiers: Qualified Code(s): D50.0 - Iron deficiency anemia secondary to blood loss ( chronic) (4) CKD (chronic kidney disease), stage III Current Visit: No Status: Chronic Discussion w patient/family: The assessment and plan as outlined above was discussed with the patient and/or family members who expressed understanding and agreement. All questions were answered. Thank you for involving us in the care of your patient. Please call with any questions. History of Present Illness Consult date: 12/10/17 Requesting physician: Daniel Avina Consult reason: Elevated troponin, hx of CAD, anemia Chief complaint: weakness and fatigue History of present illness: Ms. Tamez is a 82 year old female with past medical history of bladder cancer, DVT, GERD, hyperlipidemia, hypertension, myocardial infarction, chronic kidney disease stage III, thyroid disease, coronary artery disease, and bladder cancer who arrived to [facility] as a transfer from [facility] on 12/09/2017. Patient was anemic with a hemoglobin of 5.3 and there were concerns for GI bleeding. Per patient, she states she has been experiencing intermittent black and blood-tinged stools over the course of the past month since her colonoscopy. Patient states her bowel movements have been irregular with irregular consistency. She reports using laxatives prior to bowel movements. She does state there is some bright red blood, however, she believes her bowel movements to be mostly black and watery. The patient states she has not been feeling well over the past few months. She reports physical deconditioning. Yesterday, she was experiencing extreme fatigue and weakness. After noticing her pallor, she called EMS for transport patient to [facility]. Patient states during exertion of transfer, she experienced some chest pressure and shortness of breath. She denied any radiation of chest pain, nausea, or diaphoresis. She states this discomfort resolved once she began to receive transfusion of blood. Patient was transferred to [facility] from [facility] after being found to have anemia with a hemoglobin of 5.3. CT scan performed at the [facility] hospital demonstrated a 6 cm mass like wall thickening of the anterior aspect of the urinary bladder. There was noted inflammation and soft tissue thickening in the pelvis. This is consistent with patient's history of radiation secondary to bladder cancer. CT scan also illustrated history of a right nephrectomy. There was also an indeterminate 5.6 cm stricture within the hemipelvis noted to be possible prior hysterectomy. Contrast CT was recommended. Patient received a total of 2 units of packed red blood cells prior to admission to [facility]. Patient had an elevated troponin as well of 0.11. This morning, patient states she is resting comfortably. Her chest discomfort and shortness of breath have resolved. She complains of no tachycardia. She also denies any recent hematuria. Patient states she was transferred to [facility] in 2016 during a previous previous hospital admission at an [facility] facility where she underwent left heart catheterization. Patient says they were unable to perform any PCI secondary to a risky lesion. She states she is not a candidate for operative intervention secondary to her heart. She also states that during colonoscopy 1 month ago, it was recommended for her to have surgery, however, she declined secondary to her understanding of her heart condition. Past Med Surg Social Fam HX - Past Medical History Attestation: Yes The following information was validated with the patient. Source: patient, old records reviewed Medical history: cancer, DVT, GERD, hyperlipidemia, hypertension, myocardial infarction, renal disease, thyroid disease Psychiatric history: no psych history - Past Surgical History Surgical History: appendectomy, hysterectomy, other (right sided nephrectomy) - Social History Smoking Status: Former smoker Smokeless Tobacco Status: No Alcohol use: none Drug use: none - Family History Brother Hx Family Endocrine Disorder: Yes (DM) Medications and Allergies Aspirin [Lo-Dose Aspirin EC] 81 mg PO DAILY 04/22/17 [History] Levothyroxine [Synthroid] 75 mcg PO QAM 04/22/17 [History] Atorvastatin [Lipitor] 40 mg PO HS 05/25/17 [History] Nitroglycerin [Nitrostat] 0.4 mg SL Q5M PRN 08/26/17 [History] amLODIPine [Norvasc] 5 mg PO DAILY 08/26/17 [History] Lisinopril [Zestril] 5 mg PO DAILY 10/28/17 [History] 3 Allergy/AdvReac Type Severity Reaction Status Date / Time Amoxicillin Allergy Unknown UNKNOWN Verified 12/09/17 21:50 cephalexin [From Keflex] Allergy Unknown UNKNOWN Verified 12/09/17 21:50 Penicillins Allergy Unknown UNKNOWN Verified 12/09/17 21:50 All Systems Review: A 10-system review of systems was performed and is negative for pertinent findings except as documented above in the HPI. - Constitutional Constitutional: fatigue, lethargy, weakness, no anorexia, no chills, no headache (s), no stops breathing during sleep - EENT Eyes: no blurred vision, no loss of vision - Cardiovascular Cardiovascular: chest pain with exertion, dyspnea on exertion, lightheadedness, no chest pain at rest, no claudication, no diaphoresis, no leg edema, no palpitations - Respiratory Respiratory: no cough, no hemoptysis, no wheezing - Gastrointestinal Gastrointestinal: constipation, hematochezia, melena, no abdominal pain, no hematemesis - Genitourinary Genitourinary: no dysuria, no hematuria - Musculoskeletal Musculoskeletal: no myalgias - Integumentary Integumentary: no erythema - Neurological Neurological: no abnormal speech, no focal weakness, no syncope Physical Examination Vital Signs, Last 4 Hours Temp Pulse Resp BP Pulse Ox 12/10/17 07:25 98.1 F 60 19 117/56 99 General: Conversant, No Apparent Distress HEENT: Atraumatic, Normocephaly, Other (mucous membranes dry) Neck: No JVD Cardiac: Reg Rate and Rhythm, Other (systolic ejection murmur) Lungs: Normal Breath Sounds, No Wheeze, Rales, Rhonchi Neuro: Alert and responsive, No focal deficits noted Abdomen: Soft, Other (lower abdominal tenderness) Extremities: No Clubbing, No Cyanosis, No Edema Results 12/10/17 07:57 Lab Results 12/09/17 12/09/17 12/10/17 22:20 22:20 01:58 WBC 5.8 5.8 Hgb 6.3 L 6.0 L* Hct 20.4 L 19.4 L Plt Count 201 196 Troponin I 1.03 H* 12/10/17 12/10/17 01:58 07:57 WBC 5.7 Hgb 6.2 L Hct 20.2 L Plt Count 185 Troponin I 2.04 H* Consult Discharge Plan - Plan Referrals: Shan Amaya [Primary Care Provider] - 12/19/17 3:15 pm (YOUR APPOINTMENT FOR 12-23-17 @ 2:25pm HAS BEEN CANCELED. FYI THEY HAVE MOVED TO THEIR NEW LOCATION AT [address] [facility]. )
[2017-12-10] MEDS: Aspirin Enteric Coated 81 MG Tablet PO SCH (08:43)
[2017-12-10] MEDS: amLODIPine 5 MG TABLET PO SCH (08:43)
--- NOTE | 2017-12-10 10:23 | Internal Med Progress Note ---
Date of Encounter: 12/10/17 Time of Encounter: 10:06 - Assessment and plan (1) GI bleeding Current Visit: Yes Status: Acute Assessment and plan: Patient has been experiencing melena and hematochezia for few weeks. She had a colonoscopy on 10/30/2017 shows severe proctitis from radiation treatment when the patient finished Cipro and Flagyl roughly [address] scan shows renal mass and a pelvic mass. GI was consulted. Qualifiers: GI bleed type/associated pathology: unspecified gastrointestinal hemorrhage type Qualified Code(s): K92.2 - Gastrointestinal hemorrhage, unspecified (2) Elevated troponin Current Visit: No Status: Acute Assessment and plan: Patient denies chest pain, she has a history of CAD. Troponin is elevated from 1.03 up to 2.04. We will consult a burn table operator (3) Anemia Current Visit: Yes Status: Acute Assessment and plan: Anemia of acute GI bleeding. Patient received 1 unit of PRBC at the [facility] we will give another 2 units. Qualifiers: Anemia type: iron deficiency Iron deficiency anemia type: chronic blood loss Qualified Code(s): D50.0 - Iron deficiency anemia secondary to blood loss (chronic) (4) Acute on chronic renal failure Current Visit: No Status: Acute Assessment and plan: Patient has CK D stages 3, creatinine was 1.0 in October 2017, creatinine is 1.33 on December 09. Continue IV fluids Qualifiers: Acute renal failure type: unspecified Chronic kidney disease stage: stage 4 (severe) Qualified Code(s): N17.9 - Acute kidney failure, unspecified; N18.4 - Chronic kidney disease, stage 4 (severe) (5) Bladder cancer Current Visit: No Status: Chronic Assessment and plan: Patient has history of bladder cancer and stated post radiation treatment CT scan shows mild left kidney mass 2.11.51.7 patient has history of right nephrectomy. A consult urologist. 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 Tamez is a 82 year old female with history of bladder mass arrives as a transfer from [facility] with concern for blood in stool and hemoglobin of 5.3. The patient states that she has been experiencing intermittent black and bloody stools over the course the past month. EMS transported the patient to [facility] for further care and workup. hemoglobin of 5.3. The patient's platelet count was 214, no leukocytosis, the patient does have an elevated BUNs of 20.0 as well as an elevated creatinine at 1.33. A CT scan of the patient's abdomen demonstrated a left kideny mass ( 2.1 X1.5X1.7) a 6 cm mass like wall thickening of the anterior aspect of the urinary bladder. There is an indeterminate at 5.6 cm stricture with in the hemipelvis noted to possible prior hysterectomy. Contrast CT was recommended per etiology read at [facility]. The patient was started and transfused 1 unit of packed red blood cells there In addition the patient was noted to have an elevated troponin of 0.11. Patient is doing well, she denies active chest pain. She denies abdominal pain. - Constitutional Vitals: Temp Pulse Resp BP Pulse Ox 98.1 F 60 19 117/56 99 12/10/17 07:25 12/10/17 07:25 12/10/17 07:25 12/10/17 07:25 12/10/17 07:25 General appearance: Present: cooperative, A&O X 3, pleasant, no acute distress, answers questions appropriately Exam: CONSTITUTIONAL: patient appears as an age appropriate female in no acute distress. EYES Clear sclerae, bilateral pupils are equal, reactive to light. EMOI. RESPIRATORY: No accessory muscle use, bilateral clear to auscultation, no wheezing, no crackles/rales. CARDIOVASCULAR: Regular heart rate, normal S1 and S2, no murmurs GASTROINTESTINAL: bowel sounds present, soft, no tenderness. MUSCULOSKELETAL: Joints in normal range of motion, no clubbing, no edema, no cyanosis. Bilateral peripheral pulses 2+. NEUROLOGIC: CN II to XII are grossly intact, no focal neurological deficit. Internal Medicine: Result - Labs CBC & Chem 7: 12/10/17 07:57 Labs: Short CBC 12/09/17 12/10/17 12/10/17 Range/Units 22:20 01:58 07:57 WBC 5.8 5.8 5.7 (4.3-11.1) K/mcL Hgb 6.3 L 6.0 L* 6.2 L (11.5-15.4) g/dL Hct 20.4 L 19.4 L 20.2 L (35.3-44.9) % Plt Count 201 196 185 (140-400) K/mcL Neutrophils # 4.0 3.7 3.7 (1.6-8.9) K/mcL Cardiac Enzymes 12/09/17 12/10/17 Range/Units 22:20 01:58 Troponin I 1.03 H* 2.04 H* (< 0.04) ng/mL Consult Discharge Plan - Plan Referrals: Shan Amaya [Primary Care Provider] - 12/19/17 3:15 pm (YOUR APPOINTMENT FOR 12-23-17 @ 2:25pm HAS BEEN CANCELED. FYI THEY HAVE MOVED TO THEIR NEW LOCATION AT [address] [facility]. )
[2017-12-10] MEDS ORDERED: 0.9 % Sodium Chloride 250 ML ONE (12:35)
--- NOTE | 2017-12-10 12:48 | Oncology Inp Consult Note ---
<Liliana Lira L - Last Filed: 12/10/17 17:59> Date of Encounter: 12/10/17 Time of Encounter: 12:47 Assessment and Plan (1) Bladder cancer Status: Chronic Assessment and plan: 1. Anemia, Suspected GI bleed. Hgb 6.2, she received 1 unit PRBC at [facility] (hgb 5.3 upon presentation to ER). Planned to receive another 2 units PRBC. Asymptomatic upon presentation including chest pain, SOB, weakness, dizziness and fatigue, she reports these symptoms are beginning to improve. Plan for further anemia work up laboratory studies including B12, folate and iron panel/ferritin. GI consult reviewed, she is planned for EGD and sigmoidoscopy tomorrow. She was recently had a colonoscopy which showed severe proctitis and was treated with Cipro/Flagyl, GI concerned for continued related bleeding. Will order proctofoam TID which may offer some relief with proctitis. Muscle invasive urothelial cell carcinoma, Patient of Dr. Andrew, received palliative radiotherapy 04/30/17-06/11/17. She was not a surgical or systemic chemotherapy candidate. She has a known left adnexal mass, previous extensive workup consistent with complex cyst, she previously deferred gynecologic oncology referral. Continues surveillance for bladder cancer, most recent CT abd /pelvis at [facility] on 10/28/17 had shown decreased circumferential wall thickening and increased focal anterior wall thickening. I have requested most recent CT images obtained at [facility] for further comparison and review, apparently recent CT at this facility according to admitting records shows a new left kidney mass ( 2.1 X1.5X1.7) (prior right nephrectomy) and wall thickening of the anterior aspect of the urinary bladder. There is an indeterminate at 5.6 cm stricture with in the hemipelvis noted to possible prior hysterectomy, contrast CT was recommended for further evaluation. Elevated troponin, cardiology following, not a candidate for PCI Please refer to Dr. Clement's attestation below for further details. Qualifiers: Bladder location: unspecified site Qualified Code(s): C67.9 - Malignant neoplasm of bladder, unspecified - Data of Consult Patient: known to practice within the last 3 years Consult date: 12/10/17 Requesting Physician: Anmol Cortez MD Primary Care Provider: Shan Amaya - Consult Narrative Reason for consult: Bladder Cancer, Anemia History of present illness: Ms. Tamez is a 82 year old female with past medical history significant for anemia, DM, CAD, HTN, hypothyroidism, radiation induced proctitis, DVT, CKD and IVC filer placement. She presented to [facility] ER after feeling increasingly weak/ fatigued, SOB, dizzy and felt as though she began to look very pale. Further workup at [facility] revealed hemoglobin of 5.3 along with elevated troponin of 0.11. A CT scan of the patient's abdomen performed at [facility] apparently demonstrated a left kidney mass ( 2.1 X1.5X1.7) and wall thickening of the anterior aspect of the urinary bladder. There is an indeterminate at 5.6 cm stricture with in the hemipelvis noted to possible prior hysterectomy, contrast CT was recommended for further evaluation. She reported melena and hematochezia prior to presenting to ER. CT on 10/30/2017 showed probable proctitis from radiation treatment, she recently finished Cipro and Flagyl for treatment. She reports bloody stools dating back to this time. Patient is known to the [facility] and a patient of Dr. Andrew for muscle invasive urothelial cell carcinoma. She received palliative pelvic radiotherapy 04/30/17 through 06/11/17 and has since been on surveillance. She was not a surgical candidate at the time of diagnosis due to recent PA and declined chemotherapy/found not to be good candidate for systemic chemotherapy. She has a known left adnexal mass with prior work up including CT, PET, non contrast MRI and US, found to be consistent with a complex cyst, she deferred referral to gynecologic oncologist given her number of comorbidities and plan for palliative treatment. CT abdomen/pelvis 10/28/17 also revealed mixed bladder response with decreased circumferential wall thickening but increased focal anterior wall thickening. Past Med Surg Social Fam HX - Past Medical History Medical history: cancer, DVT, GERD, hyperlipidemia, hypertension, myocardial infarction, renal disease, thyroid disease Psychiatric history: no psych history - Past Surgical History Surgical History: appendectomy, hysterectomy, other (right sided nephrectomy) - Social History Smoking Status: Former smoker Smokeless Tobacco Status: No Alcohol use: none Drug use: none - Family History Brother Hx Family Endocrine Disorder: Yes (DM) Medications and Allergies Aspirin [Lo-Dose Aspirin EC] 81 mg PO DAILY 04/22/17 [History] Levothyroxine [Synthroid] 75 mcg PO QAM 04/22/17 [History] Atorvastatin [Lipitor] 40 mg PO HS 05/25/17 [History] Nitroglycerin [Nitrostat] 0.4 mg SL Q5M PRN 08/26/17 [History] amLODIPine [Norvasc] 5 mg PO DAILY 08/26/17 [History] Lisinopril [Zestril] 5 mg PO DAILY 10/28/17 [History] 3 Allergy/AdvReac Type Severity Reaction Status Date / Time Amoxicillin Allergy Unknown UNKNOWN Verified 12/09/17 21:50 cephalexin [From Keflex] Allergy Unknown UNKNOWN Verified 12/09/17 21:50 Penicillins Allergy Unknown UNKNOWN Verified 12/09/17 21:50 Constitutional: Present: fatigue, weakness. Absent: fever(s), weight loss Eyes: Absent: change in vision Cardiovascular: Present: chest pain. Absent: irregular heart rhythm, palpitations Respiratory: Present: dyspnea. Absent: cough, wheezing Gastrointestinal: Present: hematochezia, melena. Absent: abdominal pain, diarrhea, hematemesis, nausea, vomiting Genitourinary: Present: urinary incontinence, urinary urgency. Absent: dysuria , hematuria Musculoskeletal: Present: muscle weakness. Absent: numbness, tingling Integumentary: Absent: wounds Neurological: Present: headache(s). Absent: focal weakness Hematologic/Lymphatic: Absent: lymphadenopathy Oncology - Exam - Constitutional Vitals: Temp Pulse Resp BP Pulse Ox 98.1 F 65 15 122/64 99 12/10/17 11:30 12/10/17 11:30 12/10/17 11:30 12/10/17 11:30 12/10/17 11:30 General appearance: cooperative, no acute distress, no febrile - Respiratory Respiratory exam: Present: decreased breath sounds, CTAB - Cardiovascular Cardiovascular exam: Present: bradycardia, RRR, +S1, +S2 - GI/Abdominal GI/Abdominal exam: Present: normal bowel sounds, soft, tenderness. Absent: guarding - Extremities Exam Extremities exam: Absent: calf tenderness, pedal edema - Neurological Exam Neurological exam: Present: alert, oriented X3, strengths equal and symetr throughout. Absent: no focal deficits - Psychiatric Psychiatric exam: Present: normal affect, normal mood - Skin Skin exam: Present: pallor, warm Oncology - Results Labs: Short CBC 12/09/17 12/10/17 12/10/17 Range/Units 22:20 01:58 07:57 WBC 5.8 5.8 5.7 (4.3-11.1) K/mcL Hgb 6.3 L 6.0 L* 6.2 L (11.5-15.4) g/dL Hct 20.4 L 19.4 L 20.2 L (35.3-44.9) % Plt Count 201 196 185 (140-400) K/mcL Neutrophils # 4.0 3.7 3.7 (1.6-8.9) K/mcL Cardiac Enzymes 18 12/10/17 Range/Units 22:20 01:58 Troponin I 1.03 H* 2.04 H* (< 0.04) ng/mL Consult Discharge Plan - Plan Referrals: Shan Amaya [Primary Care Provider] - 12/19/17 3:15 pm (YOUR APPOINTMENT FOR 12-23-17 @ 2:25pm HAS BEEN CANCELED. FYI THEY HAVE MOVED TO THEIR NEW LOCATION AT [facility] [facility]. ) <Tonio Clement S - Last Filed: 12/10/17 20:49> Date of Encounter: 12/10/17 - Data of Consult Requesting Physician: Anmol Cortez MD Primary Care Provider: Shan Amaya - Consult Narrative History of present illness: Ms. Tamez is a 82 year old female Oncology - Exam - Constitutional Vitals: Temp Pulse Resp BP Pulse Ox 97.8 F 64 16 128/53 98 12/10/17 19:00 12/10/17 19:00 12/10/17 19:00 12/10/17 19:00 12/10/17 19:00 Oncology - Results Labs: Short CBC 12/09/1718 12/10/17 Range/Units 22:20 01:58 07:57 WBC 5.8 5.8 5.7 (4.3-11.1) K/mcL Hgb 6.3 L 6.0 L* 6.2 L (11.5-15.4) g/dL Hct 20.4 L 19.4 L 20.2 L (35.3-44.9) % Plt Count 201 196 185 (140-400) K/mcL Neutrophils # 4.0 3.7 3.7 (1.6-8.9) K/mcL 12/10/17 Range/Units 16:36 WBC 6.0 (4.3-11.1) K/mcL Hgb 7.5 L (11.5-15.4) g/dL Hct 24.1 L (35.3-44.9) % Plt Count 192 (140-400) K/mcL Neutrophils # 3.9 (1.6-8.9) K/mcL Cardiac Enzymes 12/09/17 12/10/17 Range/Units 22:20 01:58 Troponin I 1.03 H* 2.04 H* (< 0.04) ng/mL - Attending Attestation I have seen and examined Ms. Tamez and agree with Ms. Lira's assessment. She has been admitted with recurrent anemia which appears secondary to blood loss. GI has evaluated and will pursue EGD/sigmoidoscopy. Transfusion has been ordered and nutritional studies for iron, B12 and folate ordered. She has new hydronephrosis and urology evaluating. Proctofoam ordered for presumed proctitis. Will await above studies prior to further recommendations.
[2017-12-10] MEDS ORDERED: Permethrin CRM 60 GM TUBE TP ONE (13:17)
--- NOTE | 2017-12-10 13:18 | Gastroenterology Consult Note ---
<Mejia Vinesannika Han - Last Filed: 12/10/17 13:12> Date of Encounter: 12/10/17 Time of Encounter: 11:00 - Assessment and plan (1) Anemia Current Visit: Yes Status: Acute Assessment and plan: Pt presents with melena and Hgb 5.3. She has been transfused. She was recently seen for radiation proctitis and had colonoscopy which showed severe proctitis and was treated with APC. She is now complaining of melena. Troponins were elevated to 2.04. Cardiology has been consulted. Will plan for EGD and sigmoidoscopy tomorrow. Risks and benefits explained and pt is in agreement. Qualifiers: Anemia type: iron deficiency Iron deficiency anemia type: chronic blood loss Qualified Code(s): D50.0 - Iron deficiency anemia secondary to blood loss (chronic) (2) CAD (coronary artery disease) Current Visit: No Status: Chronic Assessment and plan: Followed by cardiology. Troponin was elevated, not a candidate for PCI per cardiology notes. Qualifiers: Coronary Disease-Associated Artery/Lesion type: crow artery [place] vs. transplanted heart: crow heart Associated angina: without angina Qualified Code(s): I25.10 - Atherosclerotic heart disease of crow coronary artery without angina pectoris (3) Radiation proctitis Current Visit: No Status: Acute Assessment and plan: Will repeat sigmoidoscoy with APC. Pt has severe proctitis and may have continued bleeding as it is very difficult to treat every angioectasis. - Time Spent With Patient Total time spent is greater than 50% in coordination of care (as documented) at patient's floor/unit and/or counseling patient: GI History of Present Illness - Data of Consult Consult date: 12/10/17 Requesting Physician: Anmol Cortez MD - Consult Narrative Reason for consult: anemia History of present illness: Ms. Tamez is a 82 year old female with past medical history of bladder cancer, recurrent DVT, thyroid disease, chronic kidney disease, hyperlipidemia, GERD, and hemorrhoids. She is status post resection of bladder tumor 04/09 and had palliative radiation from April to May 2017. She had DVT 09/09 and was on xarelto but developed hamaturia and it was discontinued. She had IVC filter placed 09/09/17. She was seen for bright red blood per rectum in October 2017 and had colonoscopy which showed severe radiation proctitis which was treated with APC. She preseted back to the ER with complaints of fatigue, weakness, and melena. She denies any abdominal pain, nausea, vomiting, or constipation. She has had some diarrhea. She denies fever or chills. She had Hgb 5.3 on admission and was transfused. She also had troponin of 2.04 on admission. She denies chest pain or shortness of breath. EGD: denies COLON: 11/09 severe radiation proctitis/colitis treated with APC ASA/NSAIDS: baby asa ANTICOAGULANTS: NONE Past Med Surg Social Fam HX - Past Medical History Medical history: cancer, DVT, GERD, hyperlipidemia, hypertension, myocardial infarction, renal disease, thyroid disease Psychiatric history: no psych history - Past Surgical History Surgical History: appendectomy, hysterectomy, other (right sided nephrectomy) - Social History Smoking Status: Former smoker Smokeless Tobacco Status: No Alcohol use: none Drug use: none - Family History Brother Hx Family Endocrine Disorder: Yes (DM) Review of Systems: GI: as per [facility] GENERAL: denies fever, has some chills EYES: denies yellow discoloration ENT: denies pain with swallowing or difficulty swallowing CARDIO: denies chest pain, palpitations RESP: Shortness of breath with exertion : denies change in color of urine NEURO: weakness HEME: Denies any bruising MS: denies joint pain, joint swelling or back pain. DERM: denies rash or itching PSYCH: Denies history of anxiety or depression - Constitutional Vitals: Temp Pulse Resp BP Pulse Ox 98.1 F 58 16 106/98 97 12/10/17 13:05 12/10/17 13:05 12/10/17 13:05 12/10/17 13:05 12/10/17 13:05 Exam: CONSTITUTIONAL:~alert, no acute distress.~HEAD:~normocephalic.~EYES:~no jaundice.~NECK:~no obvious swelling.~HEART:~regular rate and rhythm, no murmurs. ~LUNGS:~bilateral good air entry.~ABDOMEN:~non distended, soft, difuse tenderness, midline abdominal scar well healed, ~RECTAL EXAM:~Deferred.~ EXTREMITIES:~no clubbing, cyanosis, trace BLE edema.~SKIN:~no stigmata of chronic liver disease, pallor noted.~NEUROLOGIC:~no obvious focal defect.~~~~ Results - Labs CBC & Chem 7: 12/10/17 07:57 Labs: Last Result Troponin I 2.04 ng/mL (< 0.04) H* 12/10/17 01:58 Entire Visit Hgb 6.2 g/dL (11.5-15.4) L 12/10/17 07:57 Hct 20.2 % (35.3-44.9) L 12/10/17 07:57 Consult Discharge Plan - Plan Referrals: Shan Amaya [Primary Care Provider] - 12/19/17 3:15 pm (YOUR APPOINTMENT FOR 12-23-17 @ 2:25pm HAS BEEN CANCELED. FYI THEY HAVE MOVED TO THEIR NEW LOCATION AT [address] [facility]. ) <Roverto Devi - Last Filed: 12/11/17 14:34> Date of Encounter: 12/10/17 Time of Encounter: 17:00 - Time Spent With Patient Total time spent is greater than 50% in coordination of care (as documented) at patient's floor/unit and/or counseling patient: GI History of Present Illness - Data of Consult Requesting Physician: Anmol Cortez MD - Consult Narrative History of present illness: Ms. Tamez is a 82 year old female - Constitutional Vitals: Temp Pulse Resp BP Pulse Ox 97.7 F 53 20 120/80 95 12/11/17 11:47 12/11/17 11:47 12/11/17 11:47 12/11/17 11:47 12/11/17 11:47 Results - Labs CBC & Chem 7: 12/11/17 05:01 12/11/17 05:01 Labs: Last Result Calcium 8.6 mg/dL (8.6-10.3) 12/11/17 05:01 Iron 64 mcg/dL (50-170) 12/11/17 05:01 % Saturation 20 % (15-50) 12/11/17 05:01 Transferrin 234 mg/dL (203-362) 12/11/17 05:01 Troponin I 2.04 ng/mL (< 0.04) H* 12/10/17 01:58 Vitamin B12 257 pg/mL (250-1100) 12/11/17 05:01 Folate 13.3 ng/mL (3.0-16.0) 12/11/17 05:01 Entire Visit Hgb 8.5 g/dL (11.5-15.4) L 12/11/17 05:01 Hct 26.5 % (35.3-44.9) L 12/11/17 05:01 Total Bilirubin 0.7 mg/dL (0.3-1.0) 12/10/17 22:22 AST 19 Units/L (13-39) 12/10/17 22:22 ALT 8 Units/L (7-52) 12/10/17 22:22 Folate 13.3 ng/mL (3.0-16.0) 12/11/17 05:01 - Impressions Impressions Echocardiogram Limited Views 12/10/17 03:13 Impressions: LVEF 60%. Normal LV chamber size, wall thickness and function. Compared to prior report dated 10/29/2017, no change in LV function. Left Ventricular Wall Motion: Rest Echo Findings All wall segments showed normal motion. Findings: Study Quality * Technically adequate exam. ECG Findings * Sinus rhythm with BBB. Left Ventricle * LVEF 60%. * Normal LV chamber size, wall thickness and function. * Atypical septal motion consistent with bundle branch block. Right Ventricle * Normal right ventricular structure and function. - Attending Attestation I examined this patient and my medical decision-making was reviewed with the Resident Physician. I agree with the documented findings, disposition and treatment plan as described except to the extent set forth below.
--- NOTE | 2017-12-10 13:57 | Event Note ---
Date of Encounter: 12/10/17 Time of Encounter: 13:45 Please consider this my attestation for resident's consultation. I examined this patient and my medical decision-making was reviewed with the Resident Physician. I agree with the documented findings, disposition and treatment plan as described except to the extent set forth below. Chronically ill appearing 82 year old. Admitted for fatigue. Prior bladder mass s/p transurethral resection 2016. Diagnosed wit symptomatic anemia; evaluation in progress. NSTEMI noted. Prior records reviewed - NSTEMI 03/2017 at [facility]. LHC LM 25%. LAD proximal 55%. LCx 25%. RCA moderate stenosis (26-69%) Ramus proximal 90%. TTE EF 65%. Mild , MG 14 mHg. Per reports, ramus considered high risk lesion. Medical therapy recommended. Impressions: NSTEMI Symptomatic Anemia CAD - significant Ramus dz. Recommendations: Given anemia, patient a suboptimal candidate for LHC with possible revascularization. Recommend aspirin/statin therap as tolerated for CAD. Noticed on aspirin; okay to hold if necessary to treat/correct anemia. Bradycardia, will not tolerate a BB. If chest pain develops, long acting NTG/Ranexa could be considered. As long as hemodynamically stable and no chest pain, conservative medical mangement is most appropriate. Check TTE. Given NSTEMI, patient would be considered elevated risk for endoscopy. All questions answered. Thanks, Juan Regan DO, FACC
--- NOTE | 2017-12-10 14:41 | Urology - Consult Note ---
Date of Encounter: 12/11/17 Time of Encounter: 14:39 - Assessment and Plan (1) Left renal mass Current Visit: Yes Status: Acute Assessment and plan: I do not have the recent images to review. will need to review at f/u in 2-3 weeks in the office. (2) Bladder cancer Current Visit: No Status: Chronic Assessment and plan: Patient is sp radiation to her bladder for bladder cancer. no gross hematuria at this time. ok to f/u in 2-3 weeks to discuss further f/u regarding bladder cancer. Qualifiers: Bladder location: unspecified site Qualified Code(s): C67.9 - Malignant neoplasm of bladder, unspecified Urology CN:HPI Consult date: 12/10/17 Reason for consult Urology: Other (bladder cancer) Requesting physician: Mil Cortez History of present illness: Ciara is an 82-year-old female known to the urology service. Patient has undergone radiation for stage II or 3 bladder cancer. She is now admitted to the hospital secondary to rectal bleeding with subsequent anemia. Patient had CT scan done elsewhere which showed possible new left renal mass. Patient did have a right nephrectomy done in the remote past. Patient denies any gross hematuria at this time. CT scan did show thickening of her anterior bladder wall. Past Med Surg Social Fam HX - Past Medical History Medical history: cancer, DVT, GERD, hyperlipidemia, hypertension, myocardial infarction, renal disease, thyroid disease Psychiatric history: no psych history - Past Surgical History Surgical History: appendectomy, hysterectomy, other (right sided nephrectomy) - Social History Smoking Status: Former smoker Smokeless Tobacco Status: No Alcohol use: none Drug use: none - Family History Brother Hx Family Endocrine Disorder: Yes (DM) Medications and Allergies Aspirin [Lo-Dose Aspirin EC] 81 mg PO DAILY 04/22/17 [History] Levothyroxine [Synthroid] 75 mcg PO QAM 04/22/17 [History] Atorvastatin [Lipitor] 40 mg PO HS 05/25/17 [History] Nitroglycerin [Nitrostat] 0.4 mg SL Q5M PRN 08/26/17 [History] amLODIPine [Norvasc] 5 mg PO DAILY 08/26/17 [History] Lisinopril [Zestril] 5 mg PO DAILY 10/28/17 [History] 3 Allergy/AdvReac Type Severity Reaction Status Date / Time Amoxicillin Allergy Unknown UNKNOWN Verified 12/09/17 21:50 cephalexin [From Keflex] Allergy Unknown UNKNOWN Verified 12/09/17 21:50 Penicillins Allergy Unknown UNKNOWN Verified 12/09/17 21:50 Review of Systems - Constitutional no chills, no fever(s) - EENT Nose, mouth and throat: no dizziness - Cardiovascular no chest pain, no diaphoresis - Gastrointestinal no abdominal pain - Musculoskeletal no back pain, no muscle weakness - Integumentary no erythema, no lesions, no swelling - Neurological no confusion - Psychiatric no anxiety Exam Initial Vital Signs Temp Pulse Resp BP Pulse Ox 98.2 F 95 18 148/74 100 12/09/17 20:19 12/09/17 20:19 12/09/17 20:19 12/09/17 20:19 12/09/17 20:19 - General physical appearance Present: well developed. Absent: jaundice - Eyes Present: PERRL. Absent: icteric - Neck Present: no masses - Respiratory Present: normal respiratory effort - Cardiovascular Cardiovascular exam IM: RRR - Abdomen Abdomen: Present: soft. Absent: masses - Integumentary Present: no rash, no growths - Neurologic Present: normal coordination Urology Results - Labs 12/11/17 05:01 12/11/17 05:01 Abnormal lab results RBC 2.33 M/mcL (3.82-4.97) L 12/10/17 07:57 Hgb 6.2 g/dL (11.5-15.4) L 12/10/17 07:57 Hct 20.2 % (35.3-44.9) L 12/10/17 07:57 MCH 26.6 pg (28.0-33.3) L 12/10/17 07:57 MCHC 30.7 g/dL (31.6-35.5) L 12/10/17 07:57 RDW 15.3 % (11.5-14.5) H 12/10/17 07:57 Troponin I 2.04 ng/mL (< 0.04) H* 12/10/17 01:58 All other labs normal. - Imaging CT scan - abdomen: image reviewed CT scan - pelvis: image reviewed Consult Discharge Plan - Plan Referrals: Shan Amaya [Primary Care Provider] - 12/19/17 3:15 pm (YOUR APPOINTMENT FOR 12-23-17 @ 2:25pm HAS BEEN CANCELED. FYI THEY HAVE MOVED TO THEIR NEW LOCATION AT [address] [facility]. )
[2017-12-10 16:50] LABS: Basophils % 0.5 %; Eosinophils # 0.2 K/mcL (0.0-0.6); Hematocrit 24.1 % (35.3-44.9); Hemoglobin 7.5 g/dL (11.5-15.4); Immature Granulocytes % 0.3 % (0-4); Lymphocytes # 0.8 K/mcL (0.6-4.6); Lymphocytes % 13.9 %; Mean Corpuscular HGB Conc 31.1 g/dL (31.6-35.5); Mean Corpuscular Volume 86.7 fL (83.0-100.0); Mean Platelet Volume 9.2 fL (9.4-12.4); Monocytes # 0.9 K/mcL (0.0-1.3); Monocytes % 15.5 %; Neutrophils # 3.9 K/mcL (1.6-8.9); Nucleated Red Blood Cells 0.3 /100 WBC (0); Platelet Count 192 K/mcL (140-400); Red Blood Count 2.78 M/mcL (3.82-4.97); Red Cell Distribution Width 15.1 % (11.5-14.5); Segmented Neutrophils % 65.8 %
[2017-12-10] MEDS ORDERED: *HR* Midazolam HCl 5 MG/5 ML VIAL IVP ONE ×2 (17:04→17:26)
[2017-12-10] MEDS ORDERED: *HR* FentaNYL (PF) 100 MCG/2 ML VIAL ONE (17:05)
[2017-12-10] MEDS ORDERED: 0.9 % Sodium Chloride 1,000 ML IVC SCH (17:15)
[2017-12-10] MEDS ORDERED: Simethicone 40 MG/0.6 ML MLS IR ONE (17:26)
[2017-12-10] MEDS ORDERED: Tetracaine/Benzocaine/Butamben 200MG/SPRAY (100SPY/BOT) MM ONE (17:26)
[2017-12-10] MEDS ORDERED: *HR* FentaNYL (PF) 100 MCG/2 ML VIAL IVP ONE (17:26)
--- NOTE | 2017-12-10 17:26 | Pre-Sedation Evaluation ---
Pre-sedation evaluation - Pre-sedation checklist Date of procedure: 12/10/17 Procedure: egd/flex sig Recent Vitals: Last Vital Signs Temp 98.3 F 12/10/17 16:58 Pulse 58 12/10/17 17:13 Resp 16 12/10/17 17:13 BP 137/65 12/10/17 17:13 Pulse Ox 97 12/10/17 17:13 H&P (including ROS) documented in medical record: Yes Previous reaction to sedatives/anesthetics: No Dietary Status: Clear fluids after Midnight Dentition: poor dentition ASA Classification *see protocol: CLASS III-Severe systemic disease Plan of Care: Pt appropriate candidate for procedure/moderate/conscious sedation , Risks/benefits of procedure/sedation discussed w/ patient/family
[2017-12-10] MEDS ORDERED: Polyethylene Glycol 3350 255 GM POWDER PO ONE (17:57)
[2017-12-10] MEDS: Pramoxine 15 GM FOAM Package TP SCH (21:52)
[2017-12-10 22:47] LABS: Alanine Aminotransferase 8 Units/L (7-52); Albumin/Globulin Ratio 1.1 (1.1-2.2); Alkaline Phosphatase 59 Units/L (34-104); Aspartate Amino Transferase 19 Units/L (13-39); BUN/Creatinine Ratio 16 (6-26); Bilirubin,Total 0.7 mg/dL (0.3-1.0); Blood Urea Nitrogen 16 mg/dL (8-23); Calcium 8.8 mg/dL (8.6-10.3); Carbon Dioxide 26 mEq/L (23-29); Chloride 103 mEq/L (98-107); Globulin 2.8 g/dL (2.4-3.5); Glucose 106 mg/dL (70-105); Osmolality,Calculated 280 (280-300); Potassium 3.7 mEq/L (3.5-5.1); Sodium 134 mEq/L (136-145); Total Protein 5.8 g/dL (6.4-8.9); eGFR For African Americans > 60 (> 60); eGFR For Non-African Americans 51 (> 60)
[2017-12-11 05:26] LABS: Basophils % 0.5 %; Eosinophils # 0.5 K/mcL (0.0-0.6); Eosinophils % 5.7 %; Hematocrit 26.5 % (35.3-44.9); Hemoglobin 8.5 g/dL (11.5-15.4); Immature Granulocytes % 0.5 % (0-4); Lymphocytes # 0.7 K/mcL (0.6-4.6); Lymphocytes % 9.2 %; Mean Corpuscular HGB Conc 32.1 g/dL (31.6-35.5); Mean Corpuscular Hemoglobin 27.5 pg (28.0-33.3); Mean Corpuscular Volume 85.8 fL (83.0-100.0); Mean Platelet Volume 9.2 fL (9.4-12.4); Monocytes # 0.9 K/mcL (0.0-1.3); Monocytes % 11.6 %; Neutrophils # 5.7 K/mcL (1.6-8.9); Platelet Count 180 K/mcL (140-400); Red Blood Count 3.09 M/mcL (3.82-4.97); Red Cell Distribution Width 15.2 % (11.5-14.5); Segmented Neutrophils % 72.5 %
[2017-12-11 05:37] LABS: BUN/Creatinine Ratio 15 (6-26); Blood Urea Nitrogen 15 mg/dL (8-23); Calcium 8.6 mg/dL (8.6-10.3); Carbon Dioxide 25 mEq/L (23-29); Chloride 105 mEq/L (98-107); Glucose 101 mg/dL (70-105); Osmolality,Calculated 279 (280-300); Sodium 134 mEq/L (136-145); eGFR For African Americans > 60 (> 60); eGFR For Non-African Americans 53 (> 60)
[2017-12-11 05:38] LABS: % Iron Saturation 20 % (15-50); Iron 64 mcg/dL (50-170); Transferrin 234 mg/dL (203-362)
[2017-12-11 05:54] LABS: Folate 13.3 ng/mL (3.0-16.0)
--- NOTE | 2017-12-11 09:51 | Cardiology Progress Note ---
<FavianjuliánBelen ruelas - Last Filed: 12/11/17 13:14> Date of Encounter: 12/11/17 Time of Encounter: 09:47 Assessment and Plan (1) Elevated troponin Current Visit: No Status: Acute Patient with troponin of 0.11 at outside hospital. 1.03 on admission, 2.04 (12/10). Echocardiogram on 10/29/2017 LVEF 60%, normal LV camber size, wall thickness and function. Moderate left ventricular diastolic dysfunction. Moderate to severely dilated left atrium. Mild tricuspid regurgitation. Mild pulmonary hypertension. ECG 12/09/2017 sinus rhythm with first degree AV block, right BBB- unchanged from previous ECG on 10/28/2017 Patient admitted to hospital for symptomatic anemia s/p 3 units of blood, EGD, and flexible sigmoidoscopy with GI bleeding likely related to radiation proctitis. Elevated troponins likely secondary to NSTEMI with a component of demand secondary to anemia. Patient's most recent LHC in July 2017 at [place]. Medical Records obtained indicated blockage in ramus of 90%, unable to undergo PCI 2/2 proximal location to LAD. This was corroborated by patient that she did not receive any interventions during last heart cath as it was considered too high risk. 12/11/2017 Limited Echo- LVEF 60%, normal LV chamber size, wall thickness and function. -Patient with resolving anemia 2/2 GI bleed, unable to utilize anti-coagulation/ ACS protocol. -Continue Aspirin and statin. Patient unable to tolerate BB secondary to bradycardia. -ECG unchanged from previous. Discharge home with a 24 hour holter monitor. -Will continue to optimize medical management as patient is stable, chest pain free with preserved EF on echo. -FU with primary care transition mgr at [facility]. (2) CAD (coronary artery disease) Current Visit: No Status: Chronic -Medical Record of LHC indicate high risk lesion in ramus. No interventions undertaken. -Continue Aspirin, lipitor, and lisinopril (avoid beta shreyas secondary to bradycardia). -Patient to be discharged home with holter monitor with FU to be scheduled with primary care transition mgr. -Cardiology signing off. Qualifiers: Coronary Disease-Associated Artery/Lesion type: [place] artery [place] vs. transplanted heart: [place] heart Associated angina: without angina Qualified Code(s): I25.10 - Atherosclerotic heart disease of [place] coronary artery without angina pectoris (3) Anemia Current Visit: Yes Status: Acute Patient received 1 unit of PRBC at [place]. 2 units of PRBC yesterday (12/11/2017) . -Profound anemia likely contributing to elevated troponin. -Continue management per primary team. Qualifiers: Anemia type: iron deficiency Iron deficiency anemia type: chronic blood loss Qualified Code(s): D50.0 - Iron deficiency anemia secondary to blood loss (chronic) (4) CKD (chronic kidney disease), stage III Current Visit: No Status: Chronic Discussion w patient/family: The assessment and plan as outlined above was discussed with the patient and/or family members who expressed understanding and agreement. All questions were answered. Thank you for involving us in the care of your patient. Please call with any questions. Subjective Principal diagnosis: GI Bleed/Symptomatic Anemia Interval history: Ms. Tamez is an 82 yo female with PMHx of bladder cancer, DVT, GERD, LD, [place], [place] , CKD stage III, thyroid disease, and CAD admitted to [facility] on 12/09/2017 for symptomatic anemia and GI bleeding. Patient underwent EGD and sigmoidoscopy yesterday for chronic radiation proctitis. She is resting comfortably this morning. She denies chest pain, SOB, nausea or diaphoresis. She does report multiple bowel movements overnight. Objective Vital Signs, Last 4 Hours Temp Pulse Resp BP Pulse Ox 12/11/17 08:26 97.9 F 64 18 123/61 97 General: Conversant, No Apparent Distress HEENT: Atraumatic, Normocephaly Cardiac: Reg Rate and Rhythm, Normal S1 and S2 Lungs: Normal Breath Sounds, No Wheeze, Rales, Rhonchi Neuro: Alert and responsive Abdomen: Soft, Non-Tender Extremities: No Clubbing, No Cyanosis, No Edema Results 12/11/17 05:01 12/11/17 05:01 Lab Results 12/10/17 12/10/17 12/11/17 16:36 22:22 05:01 WBC 6.0 Hgb 7.5 L Hct 24.1 L Plt Count 192 Sodium 134 L 134 L Potassium 3.7 4.0 Chloride 103 105 Carbon Dioxide 26 25 BUN 16 15 Creatinine 1.03 1.00 Glucose 106 H 101 Calcium 8.8 8.6 Magnesium Total Bilirubin 0.7 AST 19 ALT 8 Alkaline Phosphatase 59 12/11/17 12/11/17 05:01 05:01 WBC 7.9 Hgb 8.5 L Hct 26.5 L Plt Count 180 Sodium Potassium Chloride Carbon Dioxide BUN Creatinine Glucose Calcium Magnesium 2.0 Total Bilirubin AST ALT Alkaline Phosphatase - VTE Documentation of Mechanical Device: Intermittent pneumatic compression device Consult Discharge Plan - Plan Referrals: Shan Amaya [Primary Care Provider] - 12/19/17 3:15 pm (YOUR APPOINTMENT FOR 12-23-17 @ 2:25pm HAS BEEN CANCELED. FYI THEY HAVE MOVED TO THEIR NEW LOCATION AT [address] [place] [address]. ) <Zulema Brooke - Last Filed: 12/11/17 16:41> Date of Encounter: 12/11/17 Assessment and Plan Discussion w patient/family: I examined this patient and my medical decision-making was reviewed with the Resident Physician. I agree with the documented findings, disposition and treatment plan. Ms. Tamez was admitted to the hospital for symptomatic anemia, Hgb 6 now s/p PRBC transfusion. She underwent GI workup demonstrating bleeding likely related to radiation proctitis. During admission, troponin increased to 2.04 - has known CAD with recent LHC in July at [place] in which she had a 90 % blockage in the ramus but no intervention performed, thought to be too high risk. Patient remains hemodynamically stable without chest pain. Her LV EF remains preserved on Echo. Discussed with patient. Would not recommend an invasive approach at this time given the presenting circumstances. Patient is in agreement. Recommend continuing asa as long as patient tolerates. Continue statin. Will sign off at this time. Please call with questions. Objective Vital Signs, Last 4 Hours Temp Pulse Resp BP Pulse Ox 12/11/17 16:04 97.4 F L 59 18 124/56 98 Results 12/11/17 05:01 12/11/17 05:01 Lab Results 12/10/17 12/10/17 12/11/17 16:36 22:22 05:01 WBC 6.0 Hgb 7.5 L Hct 24.1 L Plt Count 192 Sodium 134 L 134 L Potassium 3.7 4.0 Chloride 103 105 Carbon Dioxide 26 25 BUN 16 15 Creatinine 1.03 1.00 Glucose 106 H 101 Calcium 8.8 8.6 Magnesium Total Bilirubin 0.7 AST 19 ALT 8 Alkaline Phosphatase 59 12/11/17 12/11/17 05:01 05:01 WBC 7.9 Hgb 8.5 L Hct 26.5 L Plt Count 180 Sodium Potassium Chloride Carbon Dioxide BUN Creatinine Glucose Calcium Magnesium 2.0 Total Bilirubin AST ALT Alkaline Phosphatase
[2017-12-11] MEDS ORDERED: *HR* Midazolam HCl 5 MG/5 ML VIAL IVP ONE ×2 (09:59→10:19)
[2017-12-11] MEDS ORDERED: *HR* FentaNYL (PF) 100 MCG/2 ML VIAL ONE (09:59)
[2017-12-11] MEDS ORDERED: *HR* FentaNYL (PF) 100 MCG/2 ML VIAL IVP ONE (10:19)
[2017-12-11] MEDS ORDERED: Simethicone 40 MG/0.6 ML MLS IR ONE (10:19)
[2017-12-11] MEDS: amLODIPine 5 MG TABLET PO SCH (12:12)
[2017-12-11] MEDS: Aspirin Enteric Coated 81 MG Tablet PO SCH (12:12)
[2017-12-11] MEDS: Pramoxine 15 GM FOAM Package TP SCH ×3 (12:13→19:49)
--- NOTE | 2017-12-11 14:29 | Internal Med Progress Note ---
Date of Encounter: 12/11/17 Time of Encounter: 14:23 - Assessment and plan (1) GI bleeding Current Visit: Yes Status: Acute Assessment and plan: Patient has been experiencing melena and hematochezia for few weeks. She had a colonoscopy on 10/30/2017 shows severe proctitis from radiation treatment when the patient finished Cipro and Flagyl roughly [address] scan shows renal mass and a pelvic mass. GI was consulted. had EGD was negative for bleeding, sigmoidoscopy done with cauterization for bleeding. Qualifiers: GI bleed type/associated pathology: anorectal hemorrhage Qualified Code(s) : K62.5 - Hemorrhage of anus and rectum (2) Elevated troponin Current Visit: No Status: Acute Assessment and plan: Patient denies chest pain, she has a history of CAD. Troponin is elevated from 1.03 up to 2.04. cardiology was consulted, recommendation as below: 12/11/2017 Limited Echo- LVEF 60%, normal LV chamber size, wall thickness and function. -Patient with resolving anemia 2/2 GI bleed, unable to utilize anti-coagulation/ ACS protocol. -Continue Aspirin and statin. Patient unable to tolerate BB secondary to bradycardia. -ECG unchanged from previous. Discharge home with a 24 hour holter monitor. -Will continue to optimize medical management as patient is stable, chest pain free with preserved EF on echo. -FU with primary inspection manager at [place]. (3) Anemia Current Visit: Yes Status: Acute Assessment and plan: Anemia of acute GI bleeding. Patient received 1 unit of PRBC at the [facility] we will give another 2 units. Qualifiers: Anemia type: iron deficiency Iron deficiency anemia type: chronic blood loss Qualified Code(s): D50.0 - Iron deficiency anemia secondary to blood loss (chronic) (4) Acute on chronic renal failure Current Visit: No Status: Acute Assessment and plan: Patient has CK D stages 3, creatinine was 1.0 in October 2017, creatinine is 1.33 on December 09. Continue IV fluids Qualifiers: Acute renal failure type: unspecified Chronic kidney disease stage: stage 4 (severe) Qualified Code(s): N17.9 - Acute kidney failure, unspecified; N18.4 - Chronic kidney disease, stage 4 (severe) (5) Bladder cancer Current Visit: No Status: Chronic Assessment and plan: Patient has history of bladder cancer and stated post radiation treatment CT scan shows mild left kidney mass [id number] patient has history of right nephrectomy Urology was consulted, and follow up with Dr Mejia as outpatient in 2-3 weeks. oncology was consulted. recommendation as below Patient is known to the [facility] and a patient of Dr. Andrew for muscle invasive urothelial cell carcinoma. She received palliative pelvic radiotherapy 04/30/17 through 06/11/17 and has since been on surveillance. She was not a surgical candidate at the time of diagnosis due to recent DC and declined chemotherapy/found not to be good candidate for systemic chemotherapy. She has a known left adnexal mass with prior work up including CT, PET, non contrast MRI and US, found to be consistent with a complex cyst, she deferred referral to gynecologic oncologist given her number of comorbidities and plan for palliative treatment. CT abdomen/pelvis 10/28/17 also revealed mixed bladder response with decreased circumferential wall thickening but increased focal anterior wall thickening. Qualifiers: Bladder location: unspecified site Qualified Code(s): C67.9 - Malignant neoplasm of bladder, unspecified (6) Diabetes mellitus Current Visit: No Status: Chronic Assessment and plan: Diabetes type 2 with hyperglycemia diabetic neuropathy continue home medications Qualifiers: Diabetes mellitus type: type 2 Diabetes mellitus complication status: with unspecified complications Diabetes mellitus terminal clerk insulin use: without terminal clerk use Qualified Code(s): E11.8 - Type 2 diabetes mellitus with unspecified complications (7) CAD (coronary artery disease) Current Visit: No Status: Chronic Assessment and plan: Patient has history of CAD, denies stents and CABG continue aspirin and Lipitor Qualifiers: Coronary Disease-Associated Artery/Lesion type: [place] artery [place] vs. transplanted heart: [place] heart Associated angina: without angina Qualified Code(s): I25.10 - Atherosclerotic heart disease of [place] coronary artery without angina pectoris (8) Hypertension Current Visit: No Status: Chronic Assessment and plan: Continue home medications Qualifiers: Hypertension type: essential hypertension Qualified Code(s): I10 - Essential (primary) hypertension (9) Hypothyroidism Current Visit: No Status: Chronic Qualifiers: Hypothyroidism type: unspecified Qualified Code(s): E03.9 - Hypothyroidism , unspecified (10) Radiation proctitis Current Visit: No Status: Acute (11) DVT (deep venous thrombosis) Current Visit: No Status: Chronic Qualifiers: DVT location: lower extremity Affected thrombotic vein of extremity: unspecified vein of extremity Chronicity: acute Laterality: left Qualified Code(s): I82.402 - Acute embolism and thrombosis of unspecified deep veins of left lower extremity - Time Spent With Patient Greater than 35 minutes - Subjective Interval history: Ms. Tamez is a 82 year old female with history of bladder mass arrives as a transfer from [facility] with concern for blood in stool and hemoglobin of 5.3. The patient states that she has been experiencing intermittent black and bloody stools over the course the past month. EMS transported the patient to [facility] for further care and workup. hemoglobin of 5.3. The patient's platelet count was 214, no leukocytosis, the patient does have an elevated BUNs of 20.0 as well as an elevated creatinine at 1.33. A CT scan of the patient's abdomen demonstrated a left kideny mass ( 2.1 X1.5X1.7) a 6 cm mass like wall thickening of the anterior aspect of the urinary bladder. There is an indeterminate at 5.6 cm stricture with in the hemipelvis noted to possible prior hysterectomy. Contrast CT was recommended per etiology read at [facility]. The patient was started and transfused 1 unit of packed red blood cells there In addition the patient was noted to have an elevated troponin of 0.11. Patient is doing well, she denies active chest pain. She denies abdominal pain. patient had negative EGD and sigmoidoscopic cauterization for bleeding on 12/11 H/H has been stable patient si doing ok, no chest pain, no active bleeding now. - Constitutional Vitals: Temp Pulse Resp BP Pulse Ox 97.7 F 53 20 120/80 95 12/11/17 11:47 12/11/17 11:47 12/11/17 11:47 12/11/17 11:47 12/11/17 11:47 General appearance: Present: cooperative, A&O X 3, pleasant, no acute distress, answers questions appropriately Exam: CONSTITUTIONAL: patient appears as an age appropriate female in no acute distress. EYES Clear sclerae, bilateral pupils are equal, reactive to light. EMOI. RESPIRATORY: No accessory muscle use, bilateral clear to auscultation, no wheezing, no crackles/rales. CARDIOVASCULAR: Regular heart rate, normal S1 and S2, no murmurs GASTROINTESTINAL: bowel sounds present, soft, no tenderness. MUSCULOSKELETAL: Joints in normal range of motion, no clubbing, no edema, no cyanosis. Bilateral peripheral pulses 2+. NEUROLOGIC: CN II to XII are grossly intact, no focal neurological deficit. Internal Medicine: Result - Labs CBC & Chem 7: 12/11/17 05:01 12/11/17 05:01 Labs: Short CBC 12/10/17 12/11/17 Range/Units 16:36 05:01 WBC 6.0 7.9 (4.3-11.1) K/mcL Hgb 7.5 L 8.5 L (11.5-15.4) g/dL Hct 24.1 L 26.5 L (35.3-44.9) % Plt Count 192 180 (140-400) K/mcL Neutrophils # 3.9 5.7 (1.6-8.9) K/mcL BMP 12/10/17 12/11/17 22:22 05:01 Sodium 134 L 134 L Potassium 3.7 4.0 Chloride 103 105 Carbon Dioxide 26 25 BUN 16 15 Creatinine 1.03 1.00 Glucose 106 H 101 Calcium 8.8 8.6 Liver Function 12/10/17 Range/Units 22:22 Total Bilirubin 0.7 (0.3-1.0) mg/dL AST 19 (13-39) Units/L ALT 8 (7-52) Units/L Alkaline Phosphatase 59 (34-104) Units/L Albumin 3.0 L (3.5-5.7) g/dL - Impressions Impressions Echocardiogram Limited Views 12/10/17 03:13 Impressions: LVEF 60%. Normal LV chamber size, wall thickness and function. Compared to prior report dated 10/29/2017, no change in LV function. Left Ventricular Wall Motion: Rest Echo Findings All wall segments showed normal motion. Findings: Study Quality * Technically adequate exam. ECG Findings * Sinus rhythm with BBB. Left Ventricle * LVEF 60%. * Normal LV chamber size, wall thickness and function. * Atypical septal motion consistent with bundle branch block. Right Ventricle * Normal right ventricular structure and function. - VTE Documentation of Mechanical Device: Intermittent pneumatic compression device Consult Discharge Plan - Plan Referrals: Shan Amaya [Primary Care Provider] - 12/19/17 3:15 pm (YOUR APPOINTMENT FOR 12-23-17 @ 2:25pm HAS BEEN CANCELED. FYI THEY HAVE MOVED TO THEIR NEW LOCATION AT [address] [facility]. )
--- NOTE | 2017-12-11 15:48 | Oncology Inp Progress Note ---
Date of Encounter: 12/11/17 Time of Encounter: 15:48 (1) Bladder cancer Current Visit: No Status: Chronic Assessment and plan: 1. Anemia, Suspected GI bleed. Hgb has recovered nicely to 8.2 following 2 units PRBC, she is asymptomatic. B12, folate and iron panel returned normal. EGD showed normal results, no active bleeding. Awaiting sigmoidoscopy final results, apparently patient had evidence of bleeding/AVM which required cauterization, surgical consult for potential resection. Patient is a poor surgical candidate for cardiac reasoning and recently finished radiation therapy less than one year ago, likely would not pursue surgical intervention but this is to be determined by surgery/GI team. Muscle invasive urothelial cell carcinoma, Patient of Dr. Andrew, received palliative radiotherapy 04/30/17-06/11/17. She was not a surgical or systemic chemotherapy candidate. She has a known left adnexal mass, previous extensive workup consistent with complex cyst, she previously deferred gynecologic oncology referral. Continues surveillance for bladder cancer, most recent CT abd /pelvis at [place] [facility] on 10/28/17 had shown decreased circumferential wall thickening and increased focal anterior wall thickening. I have requested most recent CT images obtained at [facility] for further comparison and review, still awaiting report/images. Apparently recent CT at this facility according to admitting records shows a new left kidney mass ( 2.1 X1.5X1.7) (prior right nephrectomy) and wall thickening of the anterior aspect of the urinary bladder. There is an indeterminate at 5.6 cm stricture with in the hemipelvis noted to possible prior hysterectomy, contrast CT was recommended for further evaluation. Please refer to Dr. Clement's attestation below for further details. Qualifiers: Bladder location: unspecified site Qualified Code(s): C67.9 - Malignant neoplasm of bladder, unspecified - Constitutional Vitals: Vital Signs Temp Pulse Resp BP Pulse Ox 12/11/17 11:47 97.7 F 53 20 120/80 95 12/11/17 10:45 57 16 107/50 100 12/11/17 10:40 50 12 104/43 100 12/11/17 10:35 56 14 111/57 100 12/11/17 10:30 54 16 117/46 100 12/11/17 10:25 59 16 123/87 100 12/11/17 10:17 98.2 F 60 16 130/72 100 12/11/17 08:26 97.9 F 64 18 123/61 97 12/11/17 04:57 98.2 F 59 18 116/59 97 12/11/17 03:30 55 12/11/17 00:45 97.8 F 63 18 135/69 98 12/10/17 22:02 97.9 F 58 18 132/66 12/10/17 19:48 62 12/10/17 19:00 97.8 F 64 16 128/53 98 12/10/17 18:45 98.2 F 60 16 116/50 96 12/10/17 17:54 61 16 100/52 98 12/10/17 17:49 58 16 92/50 97 12/10/17 17:44 58 16 89/44 90 12/10/17 17:39 53 16 97/49 93 12/10/17 17:34 61 16 102/69 90 12/10/17 17:29 66 16 130/66 97 12/10/17 17:13 58 16 137/65 97 12/10/17 16:58 98.3 F 63 16 143/75 97 12/10/17 16:39 98.3 F 68 16 127/73 93 12/10/17 16:30 98.1 F 58 16 143/75 99 Intake and Output 12/10/17 12/11/17 12/11/17 23:59 07:59 15:59 Intake Total 600 / 600 120 / 120 Balance 600 / 600 120 / 120 Intake: Oral 120 / 120 Blood Product 600 / 600 Rbcs Leuko Poor As-1 Unit 300 / 300 [id number] Rbcs Leuko Poor As-1 Unit 300 / 300 [id number] Other: Meal Lunch Percent of Meal Consumed 50% Stool Size Copious Copious Large Stool Consistency liquid liquid Stool Characteristics Blyn Normal for Patient Stool Color Dark Red Blood Brown Brown # Urine Diapers 1 # Bowel Movements 3 # Bowel Movement Diapers 1 Weight 66.2 kg Patient Weight 12/11/17 23:59 Weight 66.2 kg Oncology: Obj Data - Labs CBC & Chem 7: 12/11/17 05:01 12/11/17 05:01 Labs: Laboratory Results - last 24 hr 12/10/17 12/10/17 12/10/17 04:03 16:36 22:22 WBC 6.0 RBC 2.78 L Hgb 7.5 L Hct 24.1 L MCV 86.7 MCH 27.0 L MCHC 31.1 L RDW 15.1 H Plt Count 192 MPV 9.2 L Immature Gran % 0.3 Seg Neutrophils % 65.8 Lymphocytes % 13.9 Monocytes % 15.5 Eosinophils % 4.0 Basophils % 0.5 Neutrophils # 3.9 Lymphocytes # 0.8 Monocytes # 0.9 Eosinophils # 0.2 Basophils # 0.0 Nucleated RBCs/100 WBC 0.3 H Sodium 134 L Potassium 3.7 Chloride 103 Carbon Dioxide 26 BUN 16 Creatinine 1.03 Est GFR ( Amer) > 60 Est GFR (Non-Af Amer) 51 L BUN/Creatinine Ratio 16 Glucose 106 H Calculated Osmolality 280 Calcium 8.8 Magnesium Iron % Saturation Transferrin Total Bilirubin 0.7 AST 19 ALT 8 Alkaline Phosphatase 59 Serum Total Protein 5.8 L Albumin 3.0 L Globulin 2.8 Albumin/Globulin Ratio 1.1 Vitamin B12 Folate Blood Type AB POSITIVE Antibody Screen NEGATIVE MTS Gel Crossmatch See Detail 12/11/17 12/11/17 12/11/17 05:01 05:01 05:01 WBC 7.9 RBC 3.09 L Hgb 8.5 L Hct 26.5 L MCV 85.8 MCH 27.5 L MCHC 32.1 RDW 15.2 H Plt Count 180 MPV 9.2 L Immature Gran % 0.5 Seg Neutrophils % 72.5 Lymphocytes % 9.2 Monocytes % 11.6 Eosinophils % 5.7 Basophils % 0.5 Neutrophils # 5.7 Lymphocytes # 0.7 Monocytes # 0.9 Eosinophils # 0.5 Basophils # 0.0 Nucleated RBCs/100 WBC Sodium 134 L Potassium 4.0 Chloride 105 Carbon Dioxide 25 BUN 15 Creatinine 1.00 Est GFR ( Amer) > 60 Est GFR (Non-Af Amer) 53 L BUN/Creatinine Ratio 15 Glucose 101 Calculated Osmolality 279 L Calcium 8.6 Magnesium 2.0 Iron % Saturation Transferrin Total Bilirubin AST ALT Alkaline Phosphatase Serum Total Protein Albumin Globulin Albumin/Globulin Ratio Vitamin B12 Folate Blood Type Antibody Screen MTS Gel Crossmatch 12/11/17 12/11/17 05:01 05:01 WBC RBC Hgb Hct MCV MCH MCHC RDW Plt Count MPV Immature Gran % Seg Neutrophils % Lymphocytes % Monocytes % Eosinophils % Basophils % Neutrophils # Lymphocytes # Monocytes # Eosinophils # Basophils # Nucleated RBCs/100 WBC Sodium Potassium Chloride Carbon Dioxide BUN Creatinine Est GFR ( Amer) Est GFR (Non-Af Amer) BUN/Creatinine Ratio Glucose Calculated Osmolality Calcium Magnesium Iron 64 % Saturation 20 Transferrin 234 Total Bilirubin AST ALT Alkaline Phosphatase Serum Total Protein Albumin Globulin Albumin/Globulin Ratio Vitamin B12 257 Folate 13.3 Blood Type Antibody Screen MTS Gel Crossmatch - Impressions Impressions Echocardiogram Limited Views 12/10/17 03:13 Impressions: LVEF 60%. Normal LV chamber size, wall thickness and function. Compared to prior report dated 10/29/2017, no change in LV function. Left Ventricular Wall Motion: Rest Echo Findings All wall segments showed normal motion. Findings: Study Quality * Technically adequate exam. ECG Findings * Sinus rhythm with BBB. Left Ventricle * LVEF 60%. * Normal LV chamber size, wall thickness and function. * Atypical septal motion consistent with bundle branch block. Right Ventricle * Normal right ventricular structure and function. Consult Discharge Plan - Plan Referrals: Shan Amaya [Primary Care Provider] - 12/19/17 3:15 pm (YOUR APPOINTMENT FOR 12-23-17 @ 2:25pm HAS BEEN CANCELED. FYI THEY HAVE MOVED TO THEIR NEW LOCATION AT [address] [place] [address]. )
[2017-12-12 05:08] LABS: Basophils % 0.4 %; Eosinophils # 0.3 K/mcL (0.0-0.6); Eosinophils % 3.6 %; Hematocrit 27.3 % (35.3-44.9); Hemoglobin 8.7 g/dL (11.5-15.4); Immature Granulocytes % 0.2 % (0-4); Lymphocytes # 0.9 K/mcL (0.6-4.6); Lymphocytes % 10.3 %; Mean Corpuscular HGB Conc 31.9 g/dL (31.6-35.5); Mean Corpuscular Hemoglobin 27.8 pg (28.0-33.3); Mean Corpuscular Volume 87.2 fL (83.0-100.0); Mean Platelet Volume 9.5 fL (9.4-12.4); Monocytes # 1.1 K/mcL (0.0-1.3); Monocytes % 12.7 %; Platelet Count 178 K/mcL (140-400); Red Blood Count 3.13 M/mcL (3.82-4.97); Red Cell Distribution Width 15.8 % (11.5-14.5); Segmented Neutrophils % 72.8 %
[2017-12-12 05:22] LABS: Calcium 8.6 mg/dL (8.6-10.3); Potassium 4.1 mEq/L (3.5-5.1)
[2017-12-12] MEDS: Aspirin Enteric Coated 81 MG Tablet PO SCH (08:04)
[2017-12-12] MEDS: amLODIPine 5 MG TABLET PO SCH (08:04)
[2017-12-12] MEDS: Pramoxine 15 GM FOAM Package TP SCH ×3 (08:05→21:57)
--- NOTE | 2017-12-12 12:20 | Internal Med Progress Note ---
Date of Encounter: 12/12/17 Time of Encounter: 12:17 - Assessment and plan (1) GI bleeding Current Visit: Yes Status: Acute Assessment and plan: Seems to be stable now. Status post intervention by GI. She underwent APC for multiple medium-sized diffuse angiectasia is in the rectum. Continue trend H& H. EGD unremarkable. Discharge tomorrow if remains hemodynamically stable with no further bleeding and hemoglobin remained stable. Qualifiers: GI bleed type/associated pathology: anorectal hemorrhage Qualified Code(s) : K62.5 - Hemorrhage of anus and rectum (2) NSTEMI (non-ST elevated myocardial infarction) Current Visit: Yes Status: Acute Assessment and plan: Likely an STEMI type II. Cardiology saw and evaluated with no intervention. Continue with medical management. Continue on aspirin statin. No beta shreyas due to bradycardia. Follow up with cardiology as an outpatient (3) Left renal mass Current Visit: Yes Status: Acute Assessment and plan: Follow-up with urology (4) Bladder cancer Current Visit: No Status: Chronic Assessment and plan: Patient has history of bladder cancer and stated post radiation treatment CT scan shows mild left kidney mass 2.11.51.7 patient has history of right nephrectomy Urology was consulted, and follow up with Dr Mejia as outpatient in 2-3 weeks. oncology was consulted. recommendation as below Patient is known to the [facility] and a patient of Dr. Andrew for muscle invasive urothelial cell carcinoma. She received palliative pelvic radiotherapy 04/30/17 through 06/11/17 and has since been on surveillance. She was not a surgical candidate at the time of diagnosis due to recent NC and declined chemotherapy/found not to be good candidate for systemic chemotherapy. She has a known left adnexal mass with prior work up including CT, PET, non contrast MRI and US, found to be consistent with a complex cyst, she deferred referral to gynecologic oncologist given her number of comorbidities and plan for palliative treatment. CT abdomen/pelvis 10/28/17 also revealed mixed bladder response with decreased circumferential wall thickening but increased focal anterior wall thickening. Qualifiers: Bladder location: unspecified site Qualified Code(s): C67.9 - Malignant neoplasm of bladder, unspecified (5) CAD (coronary artery disease) Current Visit: No Status: Chronic Assessment and plan: Patient has history of CAD, denies stents and CABG continue aspirin and Lipitor Qualifiers: Coronary Disease-Associated Artery/Lesion type: [place] artery [place] vs. transplanted heart: [place] heart Associated angina: without angina Qualified Code(s): I25.10 - Atherosclerotic heart disease of [place] coronary artery without angina pectoris (6) Hypertension Current Visit: No Status: Chronic Assessment and plan: Continue home medications Qualifiers: Hypertension type: essential hypertension Qualified Code(s): I10 - Essential (primary) hypertension (7) Hypothyroidism Current Visit: No Status: Chronic Assessment and plan: Continue home meds Qualifiers: Hypothyroidism type: unspecified Qualified Code(s): E03.9 - Hypothyroidism , unspecified (8) DVT prophylaxis Current Visit: No Status: Acute Assessment and plan: SCDs - Subjective Interval history: No acute events. The patient was seen and examined. She has no further bleeding episodes. She is tolerating diet. No pain. She has been afebrile. - Constitutional Vitals: Temp Pulse Resp BP Pulse Ox 98.2 F 67 16 113/59 96 12/12/17 11:17 12/12/17 11:17 12/12/17 11:17 12/12/17 11:17 12/12/17 11:17 General appearance: Present: cooperative, A&O X 3, pleasant, no acute distress, answers questions appropriately Exam: GEN: NAD CVS: RRR. S1, S2, systolic murmur at the right second intercostal space RESP: CTAB ABD: Soft, NT, ND, +BS EXT: No edema. 2+ DP. No rashes NEURO: Nonfocal Internal Medicine: Result - Labs CBC & Chem 7: 12/12/17 04:31 12/12/17 04:31 Labs: Short CBC 12/12/17 Range/Units 04:31 WBC 8.3 (4.3-11.1) K/mcL Hgb 8.7 L (11.5-15.4) g/dL Hct 27.3 L (35.3-44.9) % Plt Count 178 (140-400) K/mcL Neutrophils # 6.0 (1.6-8.9) K/mcL BMP 12/12/17 04:31 Sodium 134 L Potassium 4.1 Chloride 105 Carbon Dioxide 25 BUN 16 Creatinine 1.12 Glucose 90 Calcium 8.6 - VTE Documentation of Mechanical Device: Graduated compression elastic hosiery Consult Discharge Plan - Plan Referrals: Shan Amaya [Primary Care Provider] - 12/19/17 3:15 pm (YOUR APPOINTMENT FOR 12-23-17 @ 2:25pm HAS BEEN CANCELED. FYI THEY HAVE MOVED TO THEIR NEW LOCATION AT [address] [facility]. )
[2017-12-13 05:11] LABS: Basophils % 0.4 %; Eosinophils # 0.4 K/mcL (0.0-0.6); Eosinophils % 4.5 %; Hematocrit 25.5 % (35.3-44.9); Hemoglobin 7.9 g/dL (11.5-15.4); Immature Granulocytes % 0.5 % (0-4); Lymphocytes # 0.9 K/mcL (0.6-4.6); Lymphocytes % 11.3 %; Monocytes % 12.5 %; Neutrophils # 5.7 K/mcL (1.6-8.9); Platelet Count 172 K/mcL (140-400); Red Blood Count 2.93 M/mcL (3.82-4.97); Red Cell Distribution Width 16.2 % (11.5-14.5); Segmented Neutrophils % 70.8 %
[2017-12-13 05:28] LABS: Calcium 8.5 mg/dL (8.6-10.3); Potassium 4.2 mEq/L (3.5-5.1)
[2017-12-13] MEDS: amLODIPine 5 MG TABLET PO SCH (07:52)
[2017-12-13] MEDS: Aspirin Enteric Coated 81 MG Tablet PO SCH (07:53)
[2017-12-13] MEDS: Pramoxine 15 GM FOAM Package TP SCH ×3 (07:54→22:24)
[2017-12-13] MEDS: 0.9 % Sodium Chloride 1,000 ML IVC SCH (09:50)
--- NOTE | 2017-12-13 13:28 | Internal Med Progress Note ---
Date of Encounter: 12/13/17 Time of Encounter: 09:00 - Assessment and plan (1) GI bleeding Current Visit: Yes Status: Acute Assessment and plan: Hemoglobin dropped from 8.77.9. No signs of bleeding. I decided to keep the patient on tomorrow and check hemoglobin again and if it continues to drop we may have to ask GI to see the patient again. If it remains stable or goes up she can be discharged. She is hemodynamically stable. Status post intervention by GI. She underwent APC for multiple medium-sized diffuse angiectasia is in the rectum. EGD unremarkable. Qualifiers: GI bleed type/associated pathology: anorectal hemorrhage Qualified Code(s) : K62.5 - Hemorrhage of anus and rectum (2) NSTEMI (non-ST elevated myocardial infarction) Current Visit: Yes Status: Acute Assessment and plan: Likely an STEMI type II. Cardiology saw and evaluated with no intervention. Continue with medical management. Continue on aspirin statin. No beta shreyas due to bradycardia. Follow up with cardiology as an outpatient (3) Left renal mass Current Visit: Yes Status: Acute Assessment and plan: Follow-up with urology (4) Bladder cancer Current Visit: No Status: Chronic Assessment and plan: Patient has history of bladder cancer and stated post radiation treatment CT scan shows mild left kidney mass [id number] patient has history of right nephrectomy Urology was consulted, and follow up with Dr Mejia as outpatient in 2-3 weeks. oncology was consulted. recommendation as below Patient is known to the [facility] and a patient of Dr. Andrew for muscle invasive urothelial cell carcinoma. She received palliative pelvic radiotherapy 04/30/17 through 06/11/17 and has since been on surveillance. She was not a surgical candidate at the time of diagnosis due to recent ID and declined chemotherapy/found not to be good candidate for systemic chemotherapy. She has a known left adnexal mass with prior work up including CT, PET, non contrast MRI and US, found to be consistent with a complex cyst, she deferred referral to gynecologic oncologist given her number of comorbidities and plan for palliative treatment. CT abdomen/pelvis 10/28/17 also revealed mixed bladder response with decreased circumferential wall thickening but increased focal anterior wall thickening. Qualifiers: Bladder location: unspecified site Qualified Code(s): C67.9 - Malignant neoplasm of bladder, unspecified (5) CAD (coronary artery disease) Current Visit: No Status: Chronic Assessment and plan: Patient has history of CAD, denies stents and CABG continue aspirin and Lipitor Qualifiers: Coronary Disease-Associated Artery/Lesion type: [place] artery [place] vs. transplanted heart: [place] heart Associated angina: without angina Qualified Code(s): I25.10 - Atherosclerotic heart disease of [place] coronary artery without angina pectoris (6) Hypertension Current Visit: No Status: Chronic Assessment and plan: Continue home medications Qualifiers: Hypertension type: essential hypertension Qualified Code(s): I10 - Essential (primary) hypertension (7) Hypothyroidism Current Visit: No Status: Chronic Assessment and plan: Continue home meds Qualifiers: Hypothyroidism type: unspecified Qualified Code(s): E03.9 - Hypothyroidism , unspecified (8) DVT prophylaxis Current Visit: No Status: Acute Assessment and plan: SCDs - Subjective Interval history: No acute events. The patient was seen and examined. There has been no further reported bleeding episodes. Her hemoglobin did drop but per nursing and the patient has been no bleeding that is evident. She is tolerating diet. No pain. She has been afebrile. - Constitutional Vitals: Temp Pulse Resp BP Pulse Ox 98.2 F 65 16 131/67 93 12/13/17 11:16 12/13/17 11:16 12/13/17 11:16 12/13/17 11:16 12/13/17 11:16 General appearance: Present: cooperative, A&O X 3, pleasant, no acute distress, answers questions appropriately Exam: GEN: NAD CVS: RRR. S1, S2, systolic murmur at the right second intercostal space RESP: CTAB ABD: Soft, NT, ND, +BS EXT: No edema. 2+ DP. No rashes NEURO: Nonfocal Internal Medicine: Result - Labs CBC & Chem 7: 12/13/17 04:32 12/13/17 04:32 Labs: Short CBC 12/13/17 Range/Units 04:32 WBC 8.1 (4.3-11.1) K/mcL Hgb 7.9 L (11.5-15.4) g/dL Hct 25.5 L (35.3-44.9) % Plt Count 172 (140-400) K/mcL Neutrophils # 5.7 (1.6-8.9) K/mcL BMP 12/13/17 04:32 Sodium 135 L Potassium 4.2 Chloride 107 Carbon Dioxide 25 BUN 18 Creatinine 1.34 H Glucose 90 Calcium 8.5 L - VTE Documentation of Mechanical Device: Graduated compression elastic hosiery Consult Discharge Plan - Plan Referrals: Shan Amaya [Primary Care Provider] - 12/19/17 3:15 pm (YOUR APPOINTMENT FOR 12-23-17 @ 2:25pm HAS BEEN CANCELED. FYI THEY HAVE MOVED TO THEIR NEW LOCATION AT [facility] [facility]. )
[2017-12-14 07:13] VITALS: BP 130/55
[2017-12-14 07:58] LABS: Calcium 8.5 mg/dL (8.6-10.3)
[2017-12-14 08:02] LABS: Basophils % 0.3 %; Eosinophils # 0.3 K/mcL (0.0-0.6); Eosinophils % 3.1 %; Hematocrit 24.5 % (35.3-44.9); Hemoglobin 7.8 g/dL (11.5-15.4); Immature Granulocytes % 0.6 % (0-4); Lymphocytes # 0.7 K/mcL (0.6-4.6); Lymphocytes % 7.7 %; Mean Corpuscular HGB Conc 31.8 g/dL (31.6-35.5); Mean Corpuscular Hemoglobin 27.8 pg (28.0-33.3); Mean Corpuscular Volume 87.2 fL (83.0-100.0); Mean Platelet Volume 9.6 fL (9.4-12.4); Monocytes # 1.2 K/mcL (0.0-1.3); Monocytes % 13.8 %; Neutrophils # 6.6 K/mcL (1.6-8.9); Platelet Count 173 K/mcL (140-400); Red Blood Count 2.81 M/mcL (3.82-4.97); Red Cell Distribution Width 16.3 % (11.5-14.5); Segmented Neutrophils % 74.5 %
--- NOTE | 2017-12-14 08:53 | Discharge Summary ---
Date of Encounter: 12/14/17 Time of Encounter: 08:51 - Discharge Diagnosis (1) GI bleeding Priority: Primary Status: Acute Qualifiers: GI bleed type/associated pathology: anorectal hemorrhage Qualified Code(s) : K62.5 - Hemorrhage of anus and rectum (2) NSTEMI (non-ST elevated myocardial infarction) Priority: Primary Status: Acute (3) Left renal mass Priority: Primary Status: Acute (4) Bladder cancer Priority: Secondary Status: Chronic Qualifiers: Bladder location: unspecified site Qualified Code(s): C67.9 - Malignant neoplasm of bladder, unspecified (5) CAD (coronary artery disease) Priority: Secondary Status: Chronic Qualifiers: Coronary Disease-Associated Artery/Lesion type: [place] artery [place] vs. transplanted heart: [place] heart Associated angina: without angina Qualified Code(s): I25.10 - Atherosclerotic heart disease of [place] coronary artery without angina pectoris (6) Hypertension Priority: Secondary Status: Chronic Qualifiers: Hypertension type: essential hypertension Qualified Code(s): I10 - Essential (primary) hypertension (7) Hypothyroidism Priority: Secondary Status: Chronic Qualifiers: Hypothyroidism type: unspecified Qualified Code(s): E03.9 - Hypothyroidism , unspecified - Discharge Medications Home Medications: Levothyroxine [Synthroid] 75 mcg PO QAM 04/22/17 [History] Atorvastatin [Lipitor] 40 mg PO HS 05/25/17 [History] Nitroglycerin [Nitrostat] 0.4 mg SL Q5M PRN 08/26/17 [History] amLODIPine [Norvasc] 5 mg PO DAILY 08/26/17 [History] Lisinopril [Zestril] 5 mg PO DAILY 10/28/17 [History] Allergies/Adverse Reactions: 3 Allergy/AdvReac Type Severity Reaction Status Date / Time Amoxicillin Allergy Unknown UNKNOWN Verified 12/09/17 21:50 cephalexin [From Keflex] Allergy Unknown UNKNOWN Verified 12/09/17 21:50 Penicillins Allergy Unknown UNKNOWN Verified 12/09/17 21:50 Procedures/tests Complete & Pending: Procedures Performed prior 72 hours Category Date Time Status ECG 24 holter monitor setup [ECG] Routine Y 12/11/17 13:37 Ordered Date of admission: 12/09/17 20:12 Primary care physician: Shan Amaya Consults: 12/09/17 21:41 Consult to Cardiology [CONS] Routine Comment: Consulting Provider: Cardiology [place] Reason for Consult: Elevated Troponin, Hx of CAD, Anemia Call Completed: No 12/09/17 21:42 Consult to Oncology [CONS] Routine Consulting Provider: Oncology [facility] [place] Reason for Consult: Hx of bladder cancer, awaiting further radiation. Call Completed: No 12/09/17 22:45 Consult to Gastroenterology [CONS] Routine Consulting Provider: Gastroenterology [place] Reason for Consult: GI bleed, Hx of radiation proctitis Call Completed: No 12/10/17 10:38 Consult to Urology [CONS] Routine Consulting Provider: Urology [facility] Reason for Consult: left renal mass new, hx of bladder cancer Call Completed: No 12/12/17 12:11 Consult to Occupational Therapy [CONS] Routine Comment: Evaluate, develop and implement POC Reason for Consult: therapy/placement needs Consult to Physical Therapy [CONS] Routine Comment: Evaluate, develop and implement POC Reason for Consult: PT eval - Patient Status Disposition: Home, Self-Care Condition: Fair Overall status at discharge: patient is progressing back to baseline - Discharge Instructions Instructions: Gastrointestinal Bleeding (DC), Anemia (GEN) Follow Up With: Armando Mejia MD [Partnered Physician] - (Web Request sent, will call with appointment.) Shan Amaya [Primary Care Provider] - 12/19/17 3:15 pm (YOUR APPOINTMENT FOR 12-23-17 @ 2:25pm HAS BEEN CANCELED. FYI THEY HAVE MOVED TO THEIR NEW LOCATION AT [facility] [address] [facility]. ) Roverto Devi MD [Partnered Physician] - (Web request sent, will call with follow up appointment. ) Additional Instructions: You need to follow up with urology regarding left kidney mass Follow up with your regular oncologist regarding bladder cancer. Check labs on 12/16 - Diet and Activity Activity: increase activity as tolerated Diet: low salt diet Hospital course: Ms. Tamez is a 82 year old female with history of bladder mass came in as a transfer from [facility] with concern for blood in stool and hemoglobin of 5.3. The patient stated that she has been experiencing intermittent black and bloody stools over the course the past month. At [facility] labs were drawn which demonstrated an anemia with a hemoglobin of 5.3. The patient's platelet count was 214, no leukocytosis, and had elevated BUNs of 20.0 as well as an elevated creatinine at 1.33. The patient's electrolytes are otherwise within normal limits. A CT scan of the patient's abdomen was performed at outlying facility which demonstrated aleft kidney mass ( 2.1 X1.5X1.7) and wall thickening of the anterior aspect of the urinary bladder, however the patient has a history of bladder cancer. There is an indeterminate at 5.6 cm stricture with in the hemipelvis noted to possible prior hysterectomy. The patient was started and transfused 2 units of packed red blood cells and was transferred to our facility. She was admitted to the hospitalist service. We had oncology see the patient who recommended that she follows up with her oncologist Dr. Andrew. We had neurology see the patient for the kidney mass and she will follow-up with them as an outpatient. In addition the patient was noted to have an elevated troponin of 0.11. He has cardiology see the patient for that. 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 She was on aspirin and statin. She could not tolerate beta blockers due to bradycardia. He has been demented and her previous cardiac medications. An echo showed ejection fraction of 60% with normal LV chamber size. This was a limited echo. Regarding her anemia we had GI see the patient and she underwent EGD and colonoscopy. Her colonoscopy showed multiple medium- sized diffuse angiectasia is with typical arborization and directed. APC therapy was done. EGD was unremarkable. The patient was monitored for 2 days for signs of bleeding after that. She did not require further transfusions. Her hemoglobin was still around 8.0. On day of discharge was 7.8 and the day prior to that was 7.9. I ended up discharging the patient and she was hemodynamically stable. I did advise her to get a CBC in 2 days on 12/16 with results to be faxed to her primary care physician. If her hemoglobin remained stable, I recommend restarting aspirin given her history of heart disease. - Time Spent with Patient Total time spent providing and/or coordinating discharge services: Greater than 30 minutes - Constitutional Vitals: Temp Pulse Resp BP Pulse Ox 99.0 F 68 17 130/55 96 12/14/17 07:12 12/14/17 07:12 12/14/17 07:12 12/14/17 07:12 12/14/17 07:12 General appearance: Present: cooperative, A&O X 3, pleasant, no acute distress, answers questions appropriately Exam: GEN: NAD CVS: RRR. S1, S2, systolic murmur at the right second intercostal space RESP: CTAB ABD: Soft, NT, ND, +BS EXT: No edema. 2+ DP. No rashes NEURO: Nonfocal - VTE Documentation of Mechanical Device: Graduated compression elastic hosiery
[2017-12-14] MEDS: amLODIPine 5 MG TABLET PO SCH (10:23)
[2017-12-14] MEDS: Pramoxine 15 GM FOAM Package TP SCH (10:23)
== END 2017-12-14 11:05 | disposition home or self-care (01) | DRG 280 ==
LOC: 2NNU 20:12 → SUATTDRO 20:12 → 2ANU 12-11 21:30
PROVIDERS: ADMIT Hospitalist; ATTEND Hospitalist
PROC: ENDOCCB (2017-12-11 14:30)

== ENCOUNTER 2018-03-04 21:13 | Inpatient (IN) ==
[2018-03-05 00:44] LABS: Basophils % 0.3 %; Eosinophils # 0.1 K/mcL (0.0-0.6); Eosinophils % 0.5 %; Hematocrit 21.1 % (35.3-44.9); Hemoglobin 6.7 g/dL (11.5-15.4); Immature Granulocytes % 0.9 % (0-4); Lymphocytes # 1.1 K/mcL (0.6-4.6); Lymphocytes % 10.6 %; Mean Corpuscular HGB Conc 31.8 g/dL (31.6-35.5); Mean Corpuscular Hemoglobin 28.3 pg (28.0-33.3); Mean Platelet Volume 9.1 fL (9.4-12.4); Monocytes # 0.9 K/mcL (0.0-1.3); Monocytes % 8.4 %; Neutrophils # 8.5 K/mcL (1.6-8.9); Platelet Count 185 K/mcL (140-400); Red Blood Count 2.37 M/mcL (3.82-4.97); Red Cell Distribution Width 15.9 % (11.5-14.5); Segmented Neutrophils % 79.3 %
[2018-03-05 01:09] LABS: Calcium 9.2 mg/dL (8.6-10.3); Potassium 4.5 mEq/L (3.5-5.1)
[2018-03-05] MEDS ORDERED: Naloxone 0.4 MG/ML INJ IVP PRN (03:45)
[2018-03-05] MEDS ORDERED: Nitroglycerin 0.4 MG TAB.SUBL SL PRN (03:48)
[2018-03-05] MEDS ORDERED: 0.9 % Sodium Chloride 1,000 ML IVC SCH (04:00)
--- NOTE | 2018-03-05 04:29 | Internal Med History&Physical ---
Date of Encounter: 03/05/18 Time of Encounter: 02:00 Internal Medicine - H&P: HPI Chief complaint: Hematuria Admitted From: Home Plans for Post Hospital Care: Home History of present illness: Ms. Tamez is a 82 year old female transferred from [facility] ER for hematuria. Past medical history is significant for bladder cancer S/P radiation therapy, CAD, hypertension, CKD, s/p Rt nephrectomy, Hx of DVT s/p IVC filter. Patient started to have gross hematuria since yesterday. Patient also complaining of dysuria and burning on urination. Patient denies fever or nausea. Patient complaint mild lightheaded. Otherwise she is fine. She has chronic black stool since last May and had a recent EGD and a colonoscopy done in this November. In [place] emergency room, her hemoglobin is 7.4. Her hemoglobin dropped to 6.7 in our hospital. Will start blood transfusion. Patient follow-up with urology Dr. Mejia for blood tumor. Dr. Mejia was counseled by [place] emergency room prior to the transfer. I have discussed CODE STATUS with patient. Patient is AAO 3 and clearly tell me she does not want CPR or intubation, DNR/DNI placed. Past Med Surg Social Fam HX - Past Medical History Medical history: cancer, DVT, GERD, hyperlipidemia, hypertension, myocardial infarction, renal disease, thyroid disease Psychiatric history: no psych history - Past Surgical History Surgical History: appendectomy, hysterectomy, other - Social History Smoking Status: Former smoker Packs per day: 0.5 Smokeless Tobacco Status: No Alcohol use: none Drug use: none - Family History Brother Hx Family Endocrine Disorder: Yes (DM) Hx Family Medical Disorders: Yes (Kidney disease) Internal Medicine - H&P: Meds Levothyroxine [Synthroid] 75 mcg PO DAILY 04/22/17 [History] Atorvastatin [Lipitor] 40 mg PO HS 05/25/17 [History] Nitroglycerin [Nitrostat] 0.4 mg SL Q5M PRN 08/26/17 [History] amLODIPine [Norvasc] 5 mg PO DAILY 08/26/17 [History] Vitamin E (Dl,Tocopheryl Acet) [Vitamin E] 400 unit PO BID #60 cap 12/17/17 [Rx] Ferrous Sulfate [Iron] 325 mg PO TIDWM 02/12/18 [History] Pantoprazole Sodium [Protonix] 40 mg PO BID 02/12/18 [History] Isosorbide MONOnitrate (24 HR) [Imdur] 60 mg PO DAILY 03/04/18 [History] Metoprolol [Lopressor] 25 mg PO BID 03/04/18 [History] 3 Allergy/AdvReac Type Severity Reaction Status Date / Time Amoxicillin Allergy Unknown UNKNOWN Verified 02/12/18 13:40 cephalexin [From Keflex] Allergy Unknown UNKNOWN Verified 02/12/18 13:40 Penicillins Allergy Unknown UNKNOWN Verified 02/12/18 13:40 All Systems PM: A 10-system review of systems was performed and is negative for pertinent findings except as documented above in the HPI. - Constitutional Vitals: Temp Pulse Resp BP Pulse Ox 97.4 F L 63 12 134/77 100 03/04/18 23:02 03/04/18 23:02 03/04/18 23:02 03/04/18 23:02 03/04/18 23:02 General appearance: Present: A&O X 3, no acute distress, answers questions appropriately - Head Head exam: Present: atraumatic, normocephalic - Eye Eye exam: Present: PERRL, conjuntiva pink, sclera anicteric Pupils: Present: PERRL - Neck Neck exam general surgery: Present: supple, trachea midline. Absent: lymphadenopathy - Respiratory Respiratory exam: Present: CTAB. Absent: accessory muscle use, rales, rhonchi, wheezes - Cardiovascular Cardiovascular exam: Present: RRR, +S1, +S2. Absent: diastolic murmur, gallop, rubs, systolic murmur - GI/Abdominal GI/Abdominal exam: Present: normal bowel sounds, soft, tenderness (Mild lower abdominal tenderness without rebound or guarding), no peritoneal signs. Absent : distended - Extremities Exam Extremities exam: Present: warm, radial pulses palpable and symmetrical. Absent : calf tenderness, cyanotic, pedal edema - Neurological Exam Neurological exam: Present: CN II-XII intact, oriented X3, no focal deficits. Absent: pronater drift, facial droop, speech deficit - Skin Skin exam: Present: dry, intact Internal Med - H&P Results - Labs CBC & Chem 7: 03/05/18 00:33 03/05/18 00:33 Labs: Short CBC 03/05/18 Range/Units 00:33 WBC 10.7 (4.3-11.1) K/mcL Hgb 6.7 L (11.5-15.4) g/dL Hct 21.1 L (35.3-44.9) % Plt Count 185 (140-400) K/mcL Neutrophils # 8.5 (1.6-8.9) K/mcL BMP 03/05/18 00:33 Sodium 132 L Potassium 4.5 Chloride 103 Carbon Dioxide 21 L BUN 38 H Creatinine 2.19 H Glucose 101 Calcium 9.2 - Assessment and plan (1) Acute on chronic renal failure Current Visit: No Status: Acute Assessment and plan: Creatinine level is a little bit higher than baseline. Place patient on mild hydration and follow-up renal function. Urology consult for possible [place] catheter Qualifiers: Acute renal failure type: unspecified Chronic kidney disease stage: stage 4 (severe) Qualified Code(s): N17.9 - Acute kidney failure, unspecified; N18.4 - Chronic kidney disease, stage 4 (severe); N18.4 - Chronic kidney disease , stage 4 (severe); N18.4 - Chronic kidney disease, stage 4 (severe); N18.4 - Chronic kidney disease, stage 4 (severe) (2) DVT prophylaxis Current Visit: No Status: Acute Assessment and plan: EPCD, no anticoagulation because of hematuria (3) Hematuria Current Visit: No Status: Acute Assessment and plan: Patient has a gross hematuria with decreased hemoglobin. Hematuria is due to bladder cancer. Will hold any anticoagulation or antiplatelet. Closely monitor vitals and H&H. Transfusion as needed. Urology consult for further management. Qualifiers: Hematuria type: gross Qualified Code(s): R31.0 - Gross hematuria (4) Radiation proctitis Current Visit: No Status: Acute Assessment and plan: Continue closely monitor patient (5) DVT (deep venous thrombosis) Current Visit: No Status: Chronic Assessment and plan: History of DVT. S/P IVC filter. Contraindication for anticoagulation because of hematuria. EPCD for DVT prophylaxis Qualifiers: DVT location: lower extremity Affected thrombotic vein of extremity: unspecified vein of extremity Chronicity: acute Laterality: left Qualified Code(s): I82.402 - Acute embolism and thrombosis of unspecified deep veins of left lower extremity (6) Hypothyroidism Current Visit: No Status: Chronic Assessment and plan: Continue home medications Qualifiers: Hypothyroidism type: acquired Qualified Code(s): E03.9 - Hypothyroidism, unspecified - Time Spent With Patient Total time spent is greater than 50% in coordination of care (as documented) at patient's floor/unit and/or counseling patient: 40 minutes Greater than 35 minutes
--- NOTE | 2018-03-05 08:00 | Urology - Consult Note ---
Date of Encounter: 03/05/18 Time of Encounter: 07:58 - Assessment and Plan (1) Acute on chronic renal failure Current Visit: No Status: Acute Assessment and plan: Patient's serum creatinine is worse than at baseline. Unsure if this is secondary to obstruction. I do not have the patient CT scan to personally review at this time. We will see if we can obtain this. Qualifiers: Acute renal failure type: unspecified Chronic kidney disease stage: stage 4 (severe) Qualified Code(s): N17.9 - Acute kidney failure, unspecified; N18.4 - Chronic kidney disease, stage 4 (severe); N18.4 - Chronic kidney disease , stage 4 (severe); N18.4 - Chronic kidney disease, stage 4 (severe); N18.4 - Chronic kidney disease, stage 4 (severe) (2) Anemia Current Visit: No Status: Acute Assessment and plan: This is likely secondary to acute blood loss from urinary tract as well as GI tract. Recommend blood transfusion as per primary team. 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 Patient was preped and draped in sterile fashion. 24fr hematuria cath placed. large amount of clot then manually irrigated from the patients bladder. connect to cbi which remained light pink on slow irrigation. will need to continue with cbi at this time. (4) Bladder cancer Current Visit: No Status: Chronic Assessment and plan: sp xrt as primary treatment. unable to assess progression at this time. Qualifiers: Bladder location: unspecified site Qualified Code(s): C67.9 - Malignant neoplasm of bladder, unspecified Urology CN:HPI Consult date: 03/05/18 Reason for consult Urology: Gross Hematuria Requesting physician: Matt Murillo History of present illness: Ciara is a 82-year-old female with a history of bladder cancer who received radiation as a primary treatment. Patient has been having problems with gross hematuria and radiation proctitis with subsequent melena for some time. Patient was recently admitted to outside facility secondary to anemia where she received a blood transfusion. Patient states that she had been voiding clear urine until approximately 2-3 days ago when she started to void grossly bloody urine. Patient was seen in outside facility where a CT scan was done which according to the ER physician showed worsening bladder tumor with some hydronephrosis. Patient's serum creatinine is also elevated above her baseline. Patient states that she has significant pressure in her lower abdomen consistent with feeling like she needs to void. This pressure is a 5 out of 10 sharp in nature with no obvious radiation. Patient was also markedly anemic upon arrival to our facility. She has not received a blood transfusion yet. Past Med Surg Social Fam HX - Past Medical History Medical history: cancer, DVT, GERD, hyperlipidemia, hypertension, myocardial infarction, renal disease, thyroid disease Psychiatric history: no psych history - Past Surgical History Surgical History: appendectomy, hysterectomy, other - Social History Smoking Status: Former smoker Packs per day: 0.5 Smokeless Tobacco Status: No Alcohol use: none Drug use: none - Family History Brother Hx Family Endocrine Disorder: Yes (DM) Hx Family Medical Disorders: Yes (Kidney disease) Medications and Allergies Levothyroxine [Synthroid] 75 mcg PO DAILY 04/22/17 [History] Atorvastatin [Lipitor] 40 mg PO HS 05/25/17 [History] Nitroglycerin [Nitrostat] 0.4 mg SL Q5M PRN 08/26/17 [History] amLODIPine [Norvasc] 5 mg PO DAILY 08/26/17 [History] Vitamin E (Dl,Tocopheryl Acet) [Vitamin E] 400 unit PO BID #60 cap 12/17/17 [Rx] Ferrous Sulfate [Iron] 325 mg PO TIDWM 02/12/18 [History] Pantoprazole Sodium [Protonix] 40 mg PO BID 02/12/18 [History] Isosorbide MONOnitrate (24 HR) [Imdur] 60 mg PO DAILY 03/04/18 [History] Metoprolol XL (24 HR) Succ [Toprol Xl] 25 mg PO DAILY 03/05/18 [History] 3 Allergy/AdvReac Type Severity Reaction Status Date / Time Amoxicillin Allergy Unknown UNKNOWN Verified 03/05/18 06:45 cephalexin [From Keflex] Allergy Unknown UNKNOWN Verified 03/05/18 06:45 Penicillins Allergy Unknown UNKNOWN Verified 03/05/18 06:45 Review of Systems - Constitutional weakness, no chills, no fever(s) - EENT Nose, mouth and throat: no dizziness, no dry mouth, no headache(s) - Cardiovascular no chest pain, no diaphoresis - Respiratory no cough, no dyspnea - Gastrointestinal as per HPI, no nausea, no vomiting - Genitourinary Genitourinary: as per HPI - Musculoskeletal no back pain, no muscle weakness - Integumentary no erythema, no swelling - Neurological weakness, no confusion, no sensory deficit - Psychiatric no anxiety, no confusion - Hematologic/Lymphatic no easy bleeding, no lymphadenopathy - Allergic/Immunologic no throat swelling Exam Initial Vital Signs Temp Pulse Resp BP Pulse Ox 97.4 F L 63 12 134/77 100 03/04/18 23:02 03/04/18 23:02 03/04/18 23:02 03/04/18 23:02 03/04/18 23:02 General: alert and oriented, pale appearing Eyes: pupils normal, non-icteric Neck: no lymphadenopathy noted, supple to touch, no jvd Cardiovascular: RRR, no murmurs Respiratory: normal respiratory effort, clear bilaterally, no wheezing ABD: soft, nontender, no masses Back: no pain on percussion bilaterally Skin: no rashes noted, not diaphoretic Musculoskeletal: normal gait, FROMx4 Psych: appropriate affect, alert to time and place Urology Results - Labs 03/05/18 00:33 04 00:33 Abnormal lab results RBC 2.37 M/mcL (3.82-4.97) L 03/05/18 00:33 Hgb 6.7 g/dL (11.5-15.4) L 03/05/18 00:33 Hct 21.1 % (35.3-44.9) L 03/05/18 00:33 RDW 15.9 % (11.5-14.5) H 03/05/18 00:33 MPV 9.1 fL (9.4-12.4) L 03/05/18 00:33 Sodium 132 mEq/L (136-145) L 03/05/18 00:33 Carbon Dioxide 21 mEq/L (23-29) L 03/05/18 00:33 BUN 38 mg/dL (8-23) H 03/05/18 00:33 Creatinine 2.19 mg/dL (0.60-1.20) H 03/05/18 00:33 Est GFR ( Amer) 26 (> 60) L 03/05/18 00:33 Est GFR (Non-Af Amer) 21 (> 60) L 03/05/18 00:33 Diabetes panel 03/05/18 Range/Units 00:33 Sodium 132 L (136-145) mEq/L Potassium 4.5 (3.5-5.1) mEq/L Chloride 103 (98-107) mEq/L Carbon Dioxide 21 L (23-29) mEq/L BUN 38 H (8-23) mg/dL Creatinine 2.19 H (0.60-1.20) mg/dL Glucose 101 (70-105) mg/dL Calcium 9.2 (8.6-10.3) mg/dL Calcium panel 03/05/18 Range/Units 00:33 Calcium 9.2 (8.6-10.3) mg/dL Pituitary panel 03/05/18 Range/Units 00:33 Sodium 132 L (136-145) mEq/L Potassium 4.5 (3.5-5.1) mEq/L Chloride 103 (98-107) mEq/L Carbon Dioxide 21 L (23-29) mEq/L BUN 38 H (8-23) mg/dL Creatinine 2.19 H (0.60-1.20) mg/dL Glucose 101 (70-105) mg/dL Calcium 9.2 (8.6-10.3) mg/dL Adrenal panel 03/05/18 Range/Units 00:33 Sodium 132 L (136-145) mEq/L Potassium 4.5 (3.5-5.1) mEq/L Chloride 103 (98-107) mEq/L Carbon Dioxide 21 L (23-29) mEq/L BUN 38 H (8-23) mg/dL Creatinine 2.19 H (0.60-1.20) mg/dL Glucose 101 (70-105) mg/dL Calcium 9.2 (8.6-10.3) mg/dL All other labs normal. Consult Discharge Plan - Plan Referrals: Shan Amaya [Primary Care Provider] -
[2018-03-05] MEDS ORDERED: *HR* Morphine 2 MG/ML SYRINGE IVP PRN (08:25)
[2018-03-05] MEDS ORDERED: *HR* OxyCODONE Immed Rel 5 MG TABLET PO PRN (08:51)
[2018-03-05] MEDS ORDERED: Levofloxacin 500 MG/100 ML 500 MG/100 ML BAG IVPB SCH (09:00)
[2018-03-05] MEDS: 0.9 % Sodium Chloride 1,000 ML IVC SCH (09:03)
[2018-03-05] MEDS ORDERED: 0.9 % Sodium Chloride 250 ML ONE ×2 (10:38→16:26)
[2018-03-05] MEDS: Isosorbide MONOnitrate (24 HR) 60 MG TAB.ER.24H PO SCH (11:40)
[2018-03-05] MEDS: amLODIPine 5 MG TABLET PO SCH (11:41)
[2018-03-05] MEDS ORDERED: 0.9 % Sodium Chloride 2,000 ML ONE (14:36)
--- NOTE | 2018-03-05 14:48 | Gastroenterology Consult Note ---
<Yogesh Dudley - Last Filed: 03/05/18 14:38> Date of Encounter: 03/05/18 Time of Encounter: 12:30 - Assessment and plan (1) Anemia Current Visit: No Status: Acute Assessment and plan: Hgb 6.7 on admission. Two units PRBC have been ordered. Continue to monitor CBC and transfuse PRBC as needed. Plan for flexible sigmoidoscopy tomorrow morning. Clear liquid diet today. 2 tap water enemas tomorrow morning. Qualifiers: Anemia type: unspecified type Qualified Code(s): D64.9 - Anemia, unspecified (2) GI bleeding Current Visit: No Status: Acute Assessment and plan: Pt with rectal bleeding, plan for flexible sigmoidoscopy tomorrow morning. Qualifiers: GI bleed type/associated pathology: anorectal hemorrhage Qualified Code(s) : K62.5 - Hemorrhage of anus and rectum (3) Radiation proctitis Current Visit: No Status: Acute - Time Spent With Patient Total time spent is greater than 50% in coordination of care (as documented) at patient's floor/unit and/or counseling patient: GI History of Present Illness - Data of Consult Patient: known to practice within the last 3 years Consult date: 03/05/18 Requesting Physician: aMtt Murillo MD - Consult Narrative Reason for consult: GI bleeding History of present illness: Ms. Tamez is a 82 year old female with PMHx of bladder cancer s/p radiation therapy, CAD, HTN, CKD, HLD, [place], CKD, s/p right nephrectomy, DVT s/p IVC filter who was transferred from [facility] ED for hematuria. She began having hematuria the day before admission associated with dysuria. She denied fever or nausea. She has chronic black stool since last May, and had a recent EGD and a colonoscopy done November 2017. At [place] ED, her Hgb was 7.4. Her hemoglobin dropped to 6.7 on admission to [place]. Procedures: Flexible sigmoidoscopy 12/11/2017: Multiple colonic AVMs treated with APC, diverticulosis in the sigmoid colon. Colonoscopy 12/10/2017 Dr. Devi: Multiple recently bleeding colonic AVMs treated with APC, poor prep. EGD 12/10/2017 Dr. Devi: Normal. Colonoscopy 10/30/2017 Dr. Devi: Severe radiation proctitis, diverticulosis. NSAIDs: None Anticoagulation: None Past Med Surg Social Fam HX - Past Medical History Medical history: cancer, DVT, GERD, hyperlipidemia, hypertension, myocardial infarction, renal disease, thyroid disease Psychiatric history: no psych history - Past Surgical History Surgical History: appendectomy, hysterectomy, other - Social History Smoking Status: Former smoker Packs per day: 0.5 Smokeless Tobacco Status: No Alcohol use: none Drug use: none - Family History Brother Hx Family Endocrine Disorder: Yes (DM) Hx Family Medical Disorders: Yes (Kidney disease) - Gastrointestinal Gastrointestinal: Present: as per HPI - Constitutional Constitutional: as per HPI - EENT Eyes: as per HPI Ears: Present: as per HPI Nose, mouth and throat: Present: as per HPI - Cardiovascular Cardiovascular ROS: Present: as per HPI - Respiratory Respiratory IM: Present: as per HPI - Genitourinary Genitourinary: Absent: change in color, Urinary frequency - Neurological ROS Neurological GI: Present: as per HPI - Hematologic/Lymphatic Hematologic/Lymphatic pediatric: Present: as per HPI - Musculoskeletal Musculoskeletal ROS GI: Present: as per HPI - Integumentary Integumentary GI: Present: as per HPI - Psychiatric ROS Psychiatric GI: Present: as per HPI - Endocrine Endocrine IM: Present: as per HPI - Constitutional Vitals: Temp Pulse Resp BP Pulse Ox 97.8 F 61 19 143/64 97 03/05/18 11:51 03/05/18 11:51 03/05/18 11:51 03/05/18 11:51 03/05/18 11:51 General appearance: Present: cooperative, A&O X 3, no acute distress, answers questions appropriately - Head Head exam: Present: atraumatic, normocephalic - Eye Eye exam: Present: normal appearance, sclera anicteric - ENT ENT exam: Present: mucous membranes dry - Neck Neck exam general surgery: Present: normal inspection, trachea midline - Respiratory Respiratory exam: Present: decreased breath sounds, CTAB. Absent: rales, rhonchi - Cardiovascular Cardiovascular exam: Present: RRR, +S1, +S2 - GI/Abdominal GI/Abdominal exam: Present: soft, tenderness (Mild lower abdominal tenderness with palpation), no peritoneal signs. Absent: distended, firm, guarding - Rectal Rectal exam: Present: deferred - Extremities Exam Extremities exam: Present: warm - Neurological Exam Neurological exam: Present: no focal deficits - Psychiatric Psychiatric exam: Present: normal affect, normal mood - Skin Skin exam: Present: dry, intact, normal color, warm Results - Labs CBC & Chem 7: 03/05/18 00:33 03/05/18 00:33 Labs: Last Result Calcium 9.2 mg/dL (8.6-10.3) 03/05/18 00:33 Entire Visit Hgb 6.7 g/dL (11.5-15.4) L 03/05/18 00:33 Hct 21.1 % (35.3-44.9) L 03/05/18 00:33 PT 11.0 Seconds (9.4-12.1) 03/05/18 00:33 - ABG ABG results: PT/INR, D-dimer PT 11.0 Seconds (9.4-12.1) 03/05/18 00:33 Consult Discharge Plan - Plan Referrals: Shan Amaya [Primary Care Provider] - <Roverto Devi - Last Filed: 03/05/18 22:46> Date of Encounter: 03/05/18 Time of Encounter: 18:00 - Time Spent With Patient Total time spent is greater than 50% in coordination of care (as documented) at patient's floor/unit and/or counseling patient: GI History of Present Illness - Data of Consult Requesting Physician: Matt Murillo MD - Consult Narrative History of present illness: Ms. Tamez is a 82 year old female - Constitutional Vitals: Temp Pulse Resp BP Pulse Ox 97.4 F L 67 16 138/75 100 03/05/18 19:20 03/05/18 19:20 03/05/18 19:20 03/05/18 19:20 03/05/18 19:20 Results - Labs CBC & Chem 7: 03/05/18 00:33 03/05/18 00:33 Labs: Last Result Calcium 9.2 mg/dL (8.6-10.3) 03/05/18 00:33 Entire Visit Hgb 6.7 g/dL (11.5-15.4) L 03/05/18 00:33 Hct 21.1 % (35.3-44.9) L 03/05/18 00:33 PT 11.0 Seconds (9.4-12.1) 03/05/18 00:33 - ABG ABG results: PT/INR, D-dimer PT 11.0 Seconds (9.4-12.1) 03/05/18 00:33 - Attending Attestation I have personally performed a face to face evaluation on this patient. I have reviewed and agree with the care plan. History and Exam by me shows: Pt seen with Hx of radiation proctitis/colitis involving sigmoid colon upto 30 cm from anal margin. Has carlotta treated twice for thsi APC but minimal responce. Schedule for scopes at [facility] on as out pt . Rec: The radition colitis is extensive and not responding to APC, will recommend scopes as schedule and if cont to have the bleeding then need colostomy.
[2018-03-05 15:31] LABS: Bilirubin,Urine Negative (Negative); Blood,Urine Large (Negative); Clarity,Urine Cloudy (Clear); Glucose,Urine (UA) Normal (Normal); Ketones,Urine Negative (Negative); Leukocyte Esterase,Urine Moderate (Negative); Nitrite,Urine Negative (Negative); Protein,Urine 100 mg/dL (Neg-Trace); Urobilinogen,Urine Normal (Normal)
[2018-03-05 15:32] LABS: Color,Urine Red (Yellow)
[2018-03-05] MEDS ORDERED: Ondansetron 4 MG/2 ML VIAL IVP SCH (16:00)
[2018-03-05] MEDS: Ondansetron 4 MG/2 ML VIAL IVP PRN (16:48)
[2018-03-05] MEDS ORDERED: 0.9 % Sodium Chloride 1,000 ML ONE (19:01)
[2018-03-05] MEDS: *HR* OxyCODONE Immed Rel 5 MG TABLET PO PRN (22:43)
[2018-03-05 23:25] LABS: Hematocrit 29.7 % (35.3-44.9); Hemoglobin 10.2 g/dL (11.5-15.4)
[2018-03-06] MEDS: 0.9 % Sodium Chloride 1,000 ML IVC SCH ×3 (03:02→17:55)
[2018-03-06] MEDS: Ondansetron 4 MG/2 ML VIAL IVP PRN ×3 (06:06→17:54)
[2018-03-06 06:43] LABS: Calcium 8.4 mg/dL (8.6-10.3); Potassium 5.2 mEq/L (3.5-5.1)
[2018-03-06 06:55] LABS: Basophils % 0.2 %; Eosinophils # 0.1 K/mcL (0.0-0.6); Eosinophils % 0.9 %; Hemoglobin 9.9 g/dL (11.5-15.4); Immature Granulocytes % 1.2 % (0-4); Lymphocytes # 1.1 K/mcL (0.6-4.6); Lymphocytes % 8.8 %; Mean Corpuscular HGB Conc 31.9 g/dL (31.6-35.5); Mean Corpuscular Hemoglobin 28.3 pg (28.0-33.3); Mean Corpuscular Volume 88.6 fL (83.0-100.0); Mean Platelet Volume 9.5 fL (9.4-12.4); Monocytes # 0.9 K/mcL (0.0-1.3); Monocytes % 7.9 %; Neutrophils # 9.7 K/mcL (1.6-8.9); Platelet Count 158 K/mcL (140-400); Red Cell Distribution Width 15.9 % (11.5-14.5)
--- NOTE | 2018-03-06 07:43 | Urology Progress Note ---
Date of Encounter: 03/06/18 Time of Encounter: 07:42 - Assessment and Plan (1) Acute on chronic renal failure Current Visit: No Status: Acute Assessment and plan: Serum creatinine improving Qualifiers: Acute renal failure type: unspecified Chronic kidney disease stage: stage 4 (severe) Qualified Code(s): N17.9 - Acute kidney failure, unspecified; N18.4 - Chronic kidney disease, stage 4 (severe); N18.4 - Chronic kidney disease , stage 4 (severe); N18.4 - Chronic kidney disease, stage 4 (severe); N18.4 - Chronic kidney disease, stage 4 (severe) (2) Anemia Current Visit: No Status: Acute Assessment and plan: Status post 2 PRBCs. 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 We will need to continue with continuous bladder irrigation at least one more day before I feel comfortable having the patient's catheter removed. (4) Bladder cancer Current Visit: No Status: Chronic Qualifiers: Bladder location: unspecified site Qualified Code(s): C67.9 - Malignant neoplasm of bladder, unspecified Progress Note Narrative: Patient seen this morning. She states she feels better after receiving her blood transfusion yesterday tolerating catheter okay Objective Initial Vital Signs Temp Pulse Resp BP Pulse Ox 97.4 F L 63 12 134/77 100 03/04/18 23:02 03/04/18 23:02 03/04/18 23:02 03/04/18 23:02 03/04/18 23:02 - General physical appearance Present: well developed, well nourished, no distress - Respiratory Present: normal expansion, normal respiratory effort - Abdomen Present: soft - Genitourinary Urine Appearance: Present: Clear (Very mildly pink urine) - Labs 03/06/18 06:35 03/06/18 05:47 Diabetes panel 03/06/18 Range/Units 05:47 Sodium 135 L (136-145) mEq/L Potassium 5.2 H (3.5-5.1) mEq/L Chloride 109 H (98-107) mEq/L Carbon Dioxide 16 L (23-29) mEq/L BUN 34 H (8-23) mg/dL Creatinine 1.72 H (0.60-1.20) mg/dL Glucose 81 (70-105) mg/dL Calcium 8.4 L (8.6-10.3) mg/dL Calcium panel 03/06/18 Range/Units 05:47 Calcium 8.4 L (8.6-10.3) mg/dL Pituitary panel 03/06/18 Range/Units 05:47 Sodium 135 L (136-145) mEq/L Potassium 5.2 H (3.5-5.1) mEq/L Chloride 109 H (98-107) mEq/L Carbon Dioxide 16 L (23-29) mEq/L BUN 34 H (8-23) mg/dL Creatinine 1.72 H (0.60-1.20) mg/dL Glucose 81 (70-105) mg/dL Calcium 8.4 L (8.6-10.3) mg/dL Adrenal panel 03/06/18 Range/Units 05:47 Sodium 135 L (136-145) mEq/L Potassium 5.2 H (3.5-5.1) mEq/L Chloride 109 H (98-107) mEq/L Carbon Dioxide 16 L (23-29) mEq/L BUN 34 H (8-23) mg/dL Creatinine 1.72 H (0.60-1.20) mg/dL Glucose 81 (70-105) mg/dL Calcium 8.4 L (8.6-10.3) mg/dL Consult Discharge Plan - Plan Referrals: Shan Amaya [Primary Care Provider] -
[2018-03-06] MEDS ORDERED: Levofloxacin 250 MG/50 ML 250 MG/50 ML BAG IVPB SCH (09:00)
[2018-03-06] MEDS: Isosorbide MONOnitrate (24 HR) 60 MG TAB.ER.24H PO SCH (09:53)
[2018-03-06] MEDS: amLODIPine 5 MG TABLET PO SCH (09:53)
[2018-03-06] MEDS: Mag Hydrox/Al Hydrox/Simeth 30 ML UDC PO PRN (12:09)
--- NOTE | 2018-03-06 13:17 | Internal Med Progress Note ---
Date of Encounter: 03/06/18 Time of Encounter: 13:15 - Assessment and plan (1) Anemia Current Visit: Yes Status: Acute Assessment and plan: Presented with acute blood loss anemia, hemoglobin 6.6, received 2 unit PRBC transfusion on 03/05/2018, hemoglobin this a.m. about 10. Bleeding from bladder as well as GI was suspected given his history of radiation proctitis and bladder cancer. Urology was consult and a three-way irrigation catheter was placed yesterday. Large amount of blood clots noted. GI decided not to scope her at this admission because she is always scheduled both EGD and colonoscopy in a month as outpatient. Plan: -Bladder irrigation much clearer morning than yesterday, urology recommended to keep the catheter in for one more day, if there is no further bleeding, likely with DC catheter tomorrow. - Patient can be discharged this weekend if hemoglobin stable. Qualifiers: Anemia type: other cause Other causes of anemia: chronic disease, neoplastic Qualified Code(s): D63.0 - Anemia in neoplastic disease (2) Hematuria Current Visit: Yes Status: Acute Assessment and plan: As above Qualifiers: Hematuria type: gross Qualified Code(s): R31.0 - Gross hematuria (3) Acute on chronic renal failure Current Visit: No Status: Acute Assessment and plan: - Likely caused by urinary tract blockage due to blood clots, creatinine improved this morning after bladder irrigation catheter was placed yesterday. - Continue IV hydration with IV fluid. - Repeat BMP in a.m. Qualifiers: Acute renal failure type: unspecified Chronic kidney disease stage: stage 4 (severe) Qualified Code(s): N17.9 - Acute kidney failure, unspecified; N18.4 - Chronic kidney disease, stage 4 (severe); N18.4 - Chronic kidney disease , stage 4 (severe); N18.4 - Chronic kidney disease, stage 4 (severe); N18.4 - Chronic kidney disease, stage 4 (severe) (4) Hypothyroidism Current Visit: No Status: Chronic Assessment and plan: Continue home medications Qualifiers: Hypothyroidism type: acquired Qualified Code(s): E03.9 - Hypothyroidism, unspecified (5) Radiation proctitis Current Visit: No Status: Acute Assessment and plan: As above (6) DVT (deep venous thrombosis) Current Visit: No Status: Chronic Assessment and plan: History of DVT. S/P IVC filter. Contraindication for anticoagulation because of hematuria. Qualifiers: DVT location: lower extremity Affected thrombotic vein of extremity: unspecified vein of extremity Chronicity: acute Laterality: left Qualified Code(s): I82.402 - Acute embolism and thrombosis of unspecified deep veins of left lower extremity (7) Bladder cancer Current Visit: No Status: Chronic Assessment and plan: - Had a radiation last May, unfortunately developed radiation associated proctitis. Follow-up oncology as scheduled. Qualifiers: Bladder location: unspecified site Qualified Code(s): C67.9 - Malignant neoplasm of bladder, unspecified - Time Spent With Patient Total time spent is greater than 50% in coordination of care (as documented) at patient's floor/unit and/or counseling patient: Greater than 35 minutes - Subjective Interval history: Patient stated her lower abdominal pain has improved with pain medications. She has no fever, chills, or night sweats. - Constitutional Vitals: Temp Pulse Resp BP Pulse Ox 97.5 F L 59 16 152/74 100 03/06/18 11:30 03/06/18 11:30 03/06/18 11:30 03/06/18 11:30 03/06/18 11:30 General appearance: Present: A&O X 3, no acute distress, answers questions appropriately Exam: PHYSICAL EXAMINATION: GENERAL APPEARANCE: The patient is alert, oriented and in no acute distress. HEENT: Head is normocephalic. The sinuses are nontender. Pupils are equal and reactive. The nares are patent. Oropharynx clear without lesions. NECK: Supple without lymphadenopathy. HEART: Regular rate and rhythm. LUNGS: No crackles or wheezes are heard. ABDOMEN: Soft, nontender, nondistended with good bowel sounds heard. Inguinal area is normal. EXTREMITIES: Without cyanosis, clubbing or edema. NEUROLOGICAL: Gross nonfocal. SKIN: Warm and dry without any rash. Internal Medicine: Result - Labs CBC & Chem 7: 03/06/18 06:35 03/06/18 05:47 Labs: Short CBC 03/05/18 03/06/18 Range/Units 23:17 06:35 WBC 12.0 H (4.3-11.1) K/mcL Hgb 10.2 L D 9.9 L (11.5-15.4) g/dL Hct 29.7 L 31.0 L (35.3-44.9) % Plt Count 158 (140-400) K/mcL Neutrophils # 9.7 H (1.6-8.9) K/mcL BMP 03/06/18 05:47 Sodium 135 L Potassium 5.2 H Chloride 109 H Carbon Dioxide 16 L BUN 34 H Creatinine 1.72 H Glucose 81 Calcium 8.4 L Urine 03/05/18 Range/Units 15:05 Urine Color Red A (Yellow) Urine Clarity Cloudy A (Clear) Urine pH 6.0 (5.0-8.0) pH Units Ur Specific [place] 1.010 (1.010-1.025) Urine Protein 100 H (Neg-Trace) mg/dL Urine Glucose (UA) Normal (Normal) mg/dL - ABG Interpretation ABG results: PT/INR, D-dimer PT 11.0 Seconds (9.4-12.1) 03/05/18 00:33 Consult Discharge Plan - Plan Referrals: Shan Amaya [Primary Care Provider] -
[2018-03-07] MEDS: *HR* OxyCODONE Immed Rel 5 MG TABLET PO PRN (00:42)
[2018-03-07] MEDS: 0.9 % Sodium Chloride 1,000 ML IVC SCH ×3 (02:40→13:47)
[2018-03-07 03:22] LABS: Troponin I 0.03 ng/mL (< 0.04)
[2018-03-07 03:36] LABS: Calcium 8.2 mg/dL (8.6-10.3); Potassium 4.4 mEq/L (3.5-5.1)
[2018-03-07 07:57] LABS: Basophils % 0.2 %; Eosinophils # 0.1 K/mcL (0.0-0.6); Eosinophils % 0.8 %; Hematocrit 32.4 % (35.3-44.9); Hemoglobin 10.1 g/dL (11.5-15.4); Immature Granulocytes % 0.8 % (0-4); Lymphocytes # 0.8 K/mcL (0.6-4.6); Lymphocytes % 7.9 %; Mean Corpuscular HGB Conc 31.2 g/dL (31.6-35.5); Mean Corpuscular Hemoglobin 28.5 pg (28.0-33.3); Mean Corpuscular Volume 91.3 fL (83.0-100.0); Mean Platelet Volume 9.3 fL (9.4-12.4); Monocytes # 0.9 K/mcL (0.0-1.3); Neutrophils # 8.8 K/mcL (1.6-8.9); Platelet Count 149 K/mcL (140-400); Red Blood Count 3.55 M/mcL (3.82-4.97); Red Cell Distribution Width 15.9 % (11.5-14.5); Segmented Neutrophils % 82.3 %
[2018-03-07 08:12] LABS: Calcium 8.6 mg/dL (8.6-10.3); Potassium 4.3 mEq/L (3.5-5.1)
--- NOTE | 2018-03-07 09:19 | Urology Progress Note ---
Date of Encounter: 03/07/18 Time of Encounter: 09:18 - Assessment and Plan (1) Acute on chronic renal failure Current Visit: No Status: Acute Assessment and plan: Appears resolving Qualifiers: Acute renal failure type: unspecified Chronic kidney disease stage: stage 4 (severe) Qualified Code(s): N17.9 - Acute kidney failure, unspecified; N18.4 - Chronic kidney disease, stage 4 (severe); N18.4 - Chronic kidney disease , stage 4 (severe); N18.4 - Chronic kidney disease, stage 4 (severe); N18.4 - Chronic kidney disease, stage 4 (severe) (2) Anemia Current Visit: Yes Status: Acute Qualifiers: Anemia type: other cause Other causes of anemia: chronic disease, neoplastic Qualified Code(s): D63.0 - Anemia in neoplastic disease (3) 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 Recommend for catheter to be removed just prior to discharge. Patient should follow up with me in 3-4 weeks. We will sign off, call with any questions (4) Bladder cancer Current Visit: No Status: Chronic Qualifiers: Bladder location: unspecified site Qualified Code(s): C67.9 - Malignant neoplasm of bladder, unspecified Progress Note Narrative: Patient seen this morning. Hematuria has resolved. Patient did have some EKG changes last night which is being worked up by the hospitalist. Objective Initial Vital Signs Temp Pulse Resp BP Pulse Ox 97.4 F L 63 12 134/77 100 03/04/18 23:02 03/04/18 23:02 03/04/18 23:02 03/04/18 23:02 03/04/18 23:02 - General physical appearance Present: well developed, well nourished - Respiratory Present: normal expansion, normal respiratory effort - Abdomen Present: soft - Genitourinary Present: normal external genitalia Urine Appearance: Present: Clear - Labs 03/07/18 07:37 03/07/18 07:37 Diabetes panel 03/07/18 03/07/18 Range/Units 02:50 07:37 Sodium 133 L 133 L (136-145) mEq/L Potassium 4.4 4.3 (3.5-5.1) mEq/L Chloride 111 H 111 H (98-107) mEq/L Carbon Dioxide 13 L 16 L (23-29) mEq/L BUN 27 H 27 H (8-23) mg/dL Creatinine 1.28 H 1.27 H (0.60-1.20) mg/dL Glucose 99 77 (70-105) mg/dL Calcium 8.2 L 8.6 (8.6-10.3) mg/dL Calcium panel 03/07/18 03/07/18 Range/Units 02:50 07:37 Calcium 8.2 L 8.6 (8.6-10.3) mg/dL Pituitary panel 03/07/18 03/07/18 Range/Units 02:50 07:37 Sodium 133 L 133 L (136-145) mEq/L Potassium 4.4 4.3 (3.5-5.1) mEq/L Chloride 111 H 111 H (98-107) mEq/L Carbon Dioxide 13 L 16 L (23-29) mEq/L BUN 27 H 27 H (8-23) mg/dL Creatinine 1.28 H 1.27 H (0.60-1.20) mg/dL Glucose 99 77 (70-105) mg/dL Calcium 8.2 L 8.6 (8.6-10.3) mg/dL Adrenal panel 03/07/18 03/07/18 Range/Units 02:50 07:37 Sodium 133 L 133 L (136-145) mEq/L Potassium 4.4 4.3 (3.5-5.1) mEq/L Chloride 111 H 111 H (98-107) mEq/L Carbon Dioxide 13 L 16 L (23-29) mEq/L BUN 27 H 27 H (8-23) mg/dL Creatinine 1.28 H 1.27 H (0.60-1.20) mg/dL Glucose 99 77 (70-105) mg/dL Calcium 8.2 L 8.6 (8.6-10.3) mg/dL Consult Discharge Plan - Plan Referrals: Shan Amaya [Primary Care Provider] -
[2018-03-07] MEDS: Isosorbide MONOnitrate (24 HR) 60 MG TAB.ER.24H PO SCH (09:54)
[2018-03-07] MEDS: amLODIPine 5 MG TABLET PO SCH (09:54)
--- NOTE | 2018-03-07 15:01 | Internal Med Progress Note ---
Date of Encounter: 03/07/18 Time of Encounter: 02:45 - Assessment and plan (1) Acute on chronic renal failure Current Visit: No Status: Acute Assessment and plan: Likely related to bleeding related volume loss, improving with IV fluids. We will continue IV fluids but change from normal saline to lactated Ringer's. (2) Bladder cancer Current Visit: No Status: Chronic Assessment and plan: Continue continuous bladder irrigation until discharge. Urology has signed off. Qualifiers: Bladder location: unspecified site Qualified Code(s): C67.9 - Malignant neoplasm of bladder, unspecified (3) Hypothyroidism Current Visit: No Status: Chronic Qualifiers: Hypothyroidism type: acquired Qualified Code(s): E03.9 - Hypothyroidism, unspecified (4) Anemia Current Visit: Yes Status: Acute Assessment and plan: Stable hemoglobin. Likely GI versus source. Prior GI workup was as following: Procedures: Flexible sigmoidoscopy 12/11/2017: Multiple colonic AVMs treated with APC, diverticulosis in the sigmoid colon. Colonoscopy 12/10/2017 Dr. Devi: Multiple recently bleeding colonic AVMs treated with APC, poor prep. EGD 12/10/2017 Dr. Devi: Normal. Colonoscopy 10/30/2017 Dr. Devi: Severe radiation proctitis, diverticulosis. Plan is for a repeat outpatient colonoscopy at the end of the month. She may have AVMs and RADIATION proctitis related bleeding. This is confounded by the known bladder cancer and hematuria. Unclear which one is primary. We will plan for conservative management at this point of time and reassess based on trend of hemoglobin Qualifiers: Anemia type: other cause Other causes of anemia: chronic disease, neoplastic Qualified Code(s): D63.0 - Anemia in neoplastic disease (5) Radiation proctitis Current Visit: No Status: Acute Assessment and plan: No workup at this point of time until the repeat colonoscopy (6) DVT (deep venous thrombosis) Current Visit: No Status: Chronic Assessment and plan: History of DVT. S/P IVC filter. Contraindication for anticoagulation because of hematuria. Qualifiers: DVT location: lower extremity Affected thrombotic vein of extremity: unspecified vein of extremity Chronicity: acute Laterality: left Qualified Code(s): I82.402 - Acute embolism and thrombosis of unspecified deep veins of left lower extremity (7) Hematuria Current Visit: Yes Status: Acute Assessment and plan: Continuous bladder irrigation of urology until discharge. Qualifiers: Hematuria type: gross Qualified Code(s): R31.0 - Gross hematuria (8) Metabolic acidemia Current Visit: Yes Status: Acute Assessment and plan: Non-anion gap metabolic acidosis - Stop normal saline. Recheck BMP at 8 PM. If bicarbonate is down trending, will obtain a blood gas - Time Spent With Patient Total time spent is greater than 50% in coordination of care (as documented) at patient's floor/unit and/or counseling patient: 25 - 35 minutes - Subjective Interval history: Patient reports poor appetite. She is getting continuous irrigation of the bladder with return of clots. No GI bleeding noted. - Constitutional Vitals: Temp Pulse Resp BP Pulse Ox 97.5 F L 59 15 139/66 97 03/07/18 11:10 03/07/18 11:10 03/07/18 11:10 03/07/18 11:10 03/07/18 11:10 General appearance: Present: A&O X 3, no acute distress, answers questions appropriately Exam: Physical exam Gen: Comfortable, laying in bed, in no visible distress HEENT: Normocephalic, atraumatic. No conjunctival icterus. Moist oral mucosa. Neck: Supple Lungs: Clear to auscultation, no foreign sounds Heart: Normal S1-S2, no murmurs rubs or gallops Abdomen: Normoactive bowel sounds, no guarding rigidity or tenderness : Villeda catheter. Present Extremities: No edema clubbing or cyanosis Neuro: Alert oriented 3, no focal deficits Skin: No skin lesions Internal Medicine: Result - Labs CBC & Chem 7: 03/07/18 07:37 03/07/18 07:37 Labs: Short CBC 03/07/18 Range/Units 07:37 WBC 10.6 (4.3-11.1) K/mcL Hgb 10.1 L (11.5-15.4) g/dL Hct 32.4 L (35.3-44.9) % Plt Count 149 (140-400) K/mcL Neutrophils # 8.8 (1.6-8.9) K/mcL BMP 03/07/18 03/07/18 02:50 07:37 Sodium 133 L 133 L Potassium 4.4 4.3 Chloride 111 H 111 H Carbon Dioxide 13 L 16 L BUN 27 H 27 H Creatinine 1.28 H 1.27 H Glucose 99 77 Calcium 8.2 L 8.6 Cardiac Enzymes 03/07/18 Range/Units 02:50 Troponin I 0.03 (< 0.04) ng/mL - ABG Interpretation ABG results: PT/INR, D-dimer PT 11.0 Seconds (9.4-12.1) 03/05/18 00:33 Consult Discharge Plan - Plan Referrals: Shan Amaya [Primary Care Provider] -
[2018-03-07] MEDS: Ringers Solution, Lactated 1,000 ML IVC SCH (15:19)
[2018-03-07] MEDS: Mag Hydrox/Al Hydrox/Simeth 30 ML UDC PO PRN (15:19)
[2018-03-07 20:53] LABS: Calcium 8.7 mg/dL (8.6-10.3)
[2018-03-08] MEDS: Ringers Solution, Lactated 1,000 ML IVC SCH ×4 (00:16→23:50)
[2018-03-08 06:58] LABS: Basophils % 0.2 %; Eosinophils # 0.1 K/mcL (0.0-0.6); Eosinophils % 0.7 %; Hematocrit 26.8 % (35.3-44.9); Hemoglobin 8.7 g/dL (11.5-15.4); Immature Granulocytes % 1.1 % (0-4); Lymphocytes # 1.2 K/mcL (0.6-4.6); Lymphocytes % 9.8 %; Mean Corpuscular HGB Conc 32.5 g/dL (31.6-35.5); Mean Corpuscular Volume 89.3 fL (83.0-100.0); Monocytes # 1.1 K/mcL (0.0-1.3); Monocytes % 9.4 %; Neutrophils # 9.4 K/mcL (1.6-8.9); Platelet Count 145 K/mcL (140-400); Red Cell Distribution Width 15.9 % (11.5-14.5); Segmented Neutrophils % 78.8 %
[2018-03-08 07:08] LABS: BUN/Creatinine Ratio 22 (6-26); Blood Urea Nitrogen 22 mg/dL (8-23); Calcium 8.3 mg/dL (8.6-10.3); Carbon Dioxide 18 mEq/L (23-29); Chloride 109 mEq/L (98-107); Glucose 82 mg/dL (70-105); Osmolality,Calculated 280 (280-300); Potassium 4.2 mEq/L (3.5-5.1); Sodium 134 mEq/L (136-145); eGFR For African Americans > 60 (> 60); eGFR For Non-African Americans 54 (> 60)
[2018-03-08] MEDS: amLODIPine 5 MG TABLET PO SCH (08:29)
[2018-03-08] MEDS: Isosorbide MONOnitrate (24 HR) 60 MG TAB.ER.24H PO SCH (08:29)
--- NOTE | 2018-03-08 14:28 | Internal Med Progress Note ---
Date of Encounter: 03/08/18 Time of Encounter: 14:20 - Assessment and plan (1) Acute on chronic renal failure Current Visit: No Status: Resolved Assessment and plan: Likely related to bleeding related volume loss. Resolved with intravenous fluid hydration. Encourage oral intake. Stop IV fluids. Qualifiers: Acute renal failure type: unspecified Chronic kidney disease stage: stage 4 (severe) Qualified Code(s): N17.9 - Acute kidney failure, unspecified; N18.4 - Chronic kidney disease, stage 4 (severe); N18.4 - Chronic kidney disease , stage 4 (severe); N18.4 - Chronic kidney disease, stage 4 (severe); N18.4 - Chronic kidney disease, stage 4 (severe) (2) Bladder cancer Current Visit: No Status: Chronic Assessment and plan: Continue continuous bladder irrigation until discharge. Urology has signed off. Qualifiers: Bladder location: unspecified site Qualified Code(s): C67.9 - Malignant neoplasm of bladder, unspecified (3) Hypothyroidism Current Visit: No Status: Chronic Assessment and plan: Continue home medications Qualifiers: Hypothyroidism type: acquired Qualified Code(s): E03.9 - Hypothyroidism, unspecified (4) Anemia Current Visit: Yes Status: Acute Assessment and plan: Considering hemoglobin dropped from 10- to 8.7, 2 possibilities exist. First she may be bleeding but it is no report of bleeding on exam. Second with IV fluids there is dilution on her new baseline after bleeding recently is around 8.7. We will repeat a CBC in the morning and if stable she can go home. Qualifiers: Anemia type: other cause Other causes of anemia: chronic disease, neoplastic Qualified Code(s): D63.0 - Anemia in neoplastic disease (5) Radiation proctitis Current Visit: No Status: Acute Assessment and plan: No workup at this point of time until the repeat colonoscopy at the end of the month (6) DVT (deep venous thrombosis) Current Visit: No Status: Chronic Qualifiers: DVT location: lower extremity Affected thrombotic vein of extremity: unspecified vein of extremity Chronicity: acute Laterality: left Qualified Code(s): I82.402 - Acute embolism and thrombosis of unspecified deep veins of left lower extremity (7) Hematuria Current Visit: Yes Status: Acute Qualifiers: Hematuria type: gross Qualified Code(s): R31.0 - Gross hematuria (8) Metabolic acidemia Current Visit: Yes Status: Acute Assessment and plan: Improving slowly with correction of renal function. Will observe on labs tomorrow - Time Spent With Patient Total time spent is greater than 50% in coordination of care (as documented) at patient's floor/unit and/or counseling patient: 25 - 35 minutes - Subjective Interval history: Patient reports flatus. No ongoing bleeding per rectum or in the Villeda catheter. - Constitutional Vitals: Temp Pulse Resp BP Pulse Ox 97.7 F 55 16 128/68 98 03/08/18 11:32 03/08/18 11:32 03/08/18 11:32 03/08/18 11:32 03/08/18 11:32 General appearance: Present: A&O X 3, no acute distress, answers questions appropriately Exam: Gen: Comfortable, laying in bed, in no visible distress HEENT: Normocephalic, atraumatic. No conjunctival icterus. Moist oral mucosa. Neck: Supple Lungs: Clear to auscultation, no foreign sounds Heart: Normal S1-S2, no murmurs rubs or gallops Abdomen: Normoactive bowel sounds, no guarding rigidity or tenderness : Villeda catheter. Present Extremities: No edema clubbing or cyanosis Neuro: Alert oriented 3, no focal deficits Skin: No skin lesions Internal Medicine: Result - Labs CBC & Chem 7: 03/08/18 06:09 03/08/18 06:09 Labs: Short CBC 03/08/18 Range/Units 06:09 WBC 11.9 H (4.3-11.1) K/mcL Hgb 8.7 L (11.5-15.4) g/dL Hct 26.8 L (35.3-44.9) % Plt Count 145 (140-400) K/mcL Neutrophils # 9.4 H (1.6-8.9) K/mcL BMP 03/07/18 03/08/18 20:23 06:09 Sodium 132 L 134 L Potassium 4.0 4.2 Chloride 107 109 H Carbon Dioxide 20 L 18 L BUN 23 22 Creatinine 1.13 0.98 Glucose 135 H 82 Calcium 8.7 8.3 L - ABG Interpretation ABG results: PT/INR, D-dimer PT 11.0 Seconds (9.4-12.1) 03/05/18 00:33 - VTE Documentation of Mechanical Device: Intermittent pneumatic compression device Consult Discharge Plan - Plan Referrals: Shan Amaya [Primary Care Provider] -
[2018-03-08] MEDS: Simethicone 80 MG TAB.CHEW PO PRN (16:22)
[2018-03-09 05:19] LABS: Basophils % 0.2 %; Eosinophils # 0.1 K/mcL (0.0-0.6); Eosinophils % 0.7 %; Hematocrit 25.7 % (35.3-44.9); Hemoglobin 8.1 g/dL (11.5-15.4); Immature Granulocytes % 0.9 % (0-4); Lymphocytes # 0.7 K/mcL (0.6-4.6); Lymphocytes % 6.5 %; Mean Corpuscular HGB Conc 31.5 g/dL (31.6-35.5); Mean Corpuscular Volume 88.9 fL (83.0-100.0); Mean Platelet Volume 9.5 fL (9.4-12.4); Monocytes # 1.1 K/mcL (0.0-1.3); Monocytes % 9.8 %; Platelet Count 138 K/mcL (140-400); Red Blood Count 2.89 M/mcL (3.82-4.97); Red Cell Distribution Width 15.9 % (11.5-14.5); Segmented Neutrophils % 81.9 %
[2018-03-09 05:39] LABS: BUN/Creatinine Ratio 24 (6-26); Blood Urea Nitrogen 21 mg/dL (8-23); Calcium 8.2 mg/dL (8.6-10.3); Carbon Dioxide 21 mEq/L (23-29); Chloride 110 mEq/L (98-107); Glucose 98 mg/dL (70-105); Osmolality,Calculated 281 (280-300); Potassium 4.3 mEq/L (3.5-5.1); Sodium 134 mEq/L (136-145); eGFR For African Americans > 60 (> 60); eGFR For Non-African Americans > 60 (> 60)
[2018-03-09] MEDS: *HR* OxyCODONE Immed Rel 5 MG TABLET PO PRN (05:49)
[2018-03-09] MEDS: Ringers Solution, Lactated 1,000 ML IVC SCH (08:00)
[2018-03-09] MEDS ORDERED: *HR* OxyCODONE Immed Rel 5 MG TABLET PO PRN ×2 (08:05)
[2018-03-09] MEDS: amLODIPine 5 MG TABLET PO SCH (09:08)
[2018-03-09] MEDS: Isosorbide MONOnitrate (24 HR) 60 MG TAB.ER.24H PO SCH (09:08)
[2018-03-09 10:52] LABS: Hematocrit 31.1 % (35.3-44.9); Hemoglobin 9.5 g/dL (11.5-15.4)
[2018-03-09] MEDS: Simethicone 80 MG TAB.CHEW PO PRN (13:20)
--- NOTE | 2018-03-09 14:10 | Discharge Summary ---
- NOTES TO OUTPATIENT PROVIDER Notes to Outpatient Provider: Patient admitted here with anemia related to radiation proctitis and hematuria. Underwent CBI. Hemoglobin levels have since stabilized. She remains at risk for continued bleeding due to radiation proctitis and cystitis. Date of Encounter: 03/09/18 Time of Encounter: 14:08 - Discharge Diagnosis (1) Hematuria Priority: Primary Status: Acute Qualifiers: Hematuria type: gross Qualified Code(s): R31.0 - Gross hematuria (2) Anemia Priority: Secondary Status: Acute Qualifiers: Anemia type: other cause Other causes of anemia: chronic disease, neoplastic Qualified Code(s): D63.0 - Anemia in neoplastic disease (3) Acute on chronic renal failure Priority: Secondary Status: Resolved (4) Bladder cancer Priority: Secondary Status: Chronic Qualifiers: Bladder location: unspecified site Qualified Code(s): C67.9 - Malignant neoplasm of bladder, unspecified (5) Hypothyroidism Priority: Secondary Status: Chronic Qualifiers: Hypothyroidism type: acquired Qualified Code(s): E03.9 - Hypothyroidism, unspecified (6) Radiation proctitis Priority: Secondary Status: Acute (7) DVT (deep venous thrombosis) Priority: Secondary Status: Chronic Qualifiers: DVT location: lower extremity Affected thrombotic vein of extremity: unspecified vein of extremity Chronicity: acute Laterality: left Qualified Code(s): I82.402 - Acute embolism and thrombosis of unspecified deep veins of left lower extremity (8) Metabolic acidemia Priority: Secondary Status: Acute Hospital course: Ms. Tamez is a 82 year old female with history of bladder cancer status post radiation therapy, coronary artery disease, hypertension, chronic kidney disease , deep vein thrombosis who was hospitalized here after presenting to the ER at [facility] for hematuria. Patient was found to have a hemoglobin of 6.7 on initial presentation to our hospital. She received blood transfusion and urology was consulted. Patient was diagnosed with a radiation cystitis and underwent continuous bladder irrigation. She also had acute kidney injury on presentation and was treated with IV fluids with improvement in her renal function. As her hematuria improved, her hemoglobin levels stabilized. She continues to have dark-colored stools which is chronic for her for the past year. She has previously been diagnosed with radiation proctitis. She underwent flexible sigmoidoscopy in November and was found to have multiple angiectasias which were treated with APC. GI was consulted during this hospitalization also but as her blood counts stabilize, they did not recommend any procedure. She will follow up with her primary GI specialist at [facility] for further management. She will follow up with urology after discharge for further management of her hematuria. She is advised to return to the ER if this develops again and she is at high risk of developing recurrent hematuria and hematochezia. Patient understands this. Discharge discussed with: patient, nurse, social work - Time Spent with Patient Total time spent providing and/or coordinating discharge services: Greater than 30 minutes (35 min) - Discharge Medications Prescriptions: Simethicone [Gas-X] 80 mg PO TID PRN #30 tab.chew PRN Reason: Dyspepsia Home Medications: Levothyroxine [Synthroid] 75 mcg PO DAILY 04/22/17 [History] Atorvastatin [Lipitor] 40 mg PO HS 05/25/17 [History] Nitroglycerin [Nitrostat] 0.4 mg SL Q5M PRN 08/26/17 [History] amLODIPine [Norvasc] 5 mg PO DAILY 08/26/17 [History] Vitamin E (Dl,Tocopheryl Acet) [Vitamin E] 400 unit PO BID #60 cap 12/17/17 [Rx] Ferrous Sulfate [Iron] 325 mg PO TIDWM 02/12/18 [History] Pantoprazole Sodium [Protonix] 40 mg PO BID 02/12/18 [History] Isosorbide MONOnitrate (24 HR) [Imdur] 60 mg PO DAILY 03/04/18 [History] Metoprolol XL (24 HR) Succ [Toprol Xl] 25 mg PO DAILY 03/05/18 [History] Simethicone [Gas-X] 80 mg PO TID PRN #30 tab.chew 03/09/18 [Rx] Allergies/Adverse Reactions: 3 Allergy/AdvReac Type Severity Reaction Status Date / Time Amoxicillin Allergy Unknown UNKNOWN Verified 03/05/18 06:45 cephalexin [From Keflex] Allergy Unknown UNKNOWN Verified 03/05/18 06:45 Penicillins Allergy Unknown UNKNOWN Verified 03/05/18 06:45 Date of admission: 03/06/18 13:43 Primary care physician: Shan Amaya Consults: 03/04/18 23:08 Consult to Nutrition [CONS] Routine Comment: Consulting Provider: NUTRITION Reason for Dietary Consult: MST Score Consult to Wallpaper Cleaner [CONS] Routine Reason for SW Consult: Patient from home with family, has [facility]. 03/05/18 00:14 Consult to Urology [CONS] Routine Consulting Provider: Urology Sweetie Reason for Consult: Hematuria, Dr Mejia called by Asher Call Completed: Yes 03/05/18 08:31 Consult to Gastroenterology [CONS] Routine Consulting Provider: Gastroenterjair Pitt Reason for Consult: GI bleeding Call Completed: Yes Discharging clinician: Judy Rivera Anticipated date of discharge: 03/09/18 - Constitutional Vitals: Temp Pulse Resp BP Pulse Ox 97.5 F L 55 16 111/65 97 03/09/18 11:06 03/09/18 11:06 03/09/18 11:06 03/09/18 11:06 03/09/18 11:06 General appearance: Present: A&O X 3, no acute distress, answers questions appropriately - Respiratory Respiratory exam: Present: CTAB. Absent: accessory muscle use, rales, rhonchi, wheezes - Cardiovascular Cardiovascular exam: Present: RRR, +S1, +S2. Absent: diastolic murmur, gallop, rubs, systolic murmur - GI/Abdominal GI/Abdominal exam: Present: normal bowel sounds, soft, no peritoneal signs. Absent: distended, tenderness - Extremities Exam Extremities exam: Present: warm, radial pulses palpable and symmetrical. Absent : calf tenderness, cyanotic, pedal edema - Neurological Exam Neurological exam: Present: alert, oriented X3, no focal deficits. Absent: facial droop, speech deficit - Skin Skin exam: Present: dry, intact - Patient Status Disposition: Home Health Service Condition: Good Functional capacity at discharge: uses cane/walker Overall status at discharge: patient is progressing back to baseline - Discharge Instructions Instructions: Anemia (GEN) Follow Up With: Shan Amaya [Primary Care Provider] - (In 1-2 weeks) Lucas Anderson MD [Partnered Physician] - (in 1-2 weeks) - Diet and Activity Activity: increase activity as tolerated Diet: low fat, low cholesterol, low salt diet - VTE Documentation of Mechanical Device: Intermittent pneumatic compression device
--- NOTE | 2018-03-09 14:20 | Physician Discharge Referral ---
Home Health/Hosp Referral Info Transfer to: Home Health Provider in Charge Post Discharge: PCP - Diagnosis (1) Hematuria Priority: Primary Status: Acute (2) Anemia Priority: Secondary Status: Acute (3) Acute on chronic renal failure Priority: Secondary Status: Resolved (4) Bladder cancer Priority: Secondary Status: Chronic (5) Hypothyroidism Priority: Secondary Status: Chronic (6) Radiation proctitis Priority: Secondary Status: Acute (7) DVT (deep venous thrombosis) Priority: Secondary Status: Chronic (8) Metabolic acidemia Priority: Secondary Status: Acute - Respiratory Orders Smoking Cessation: Smoking cessation has been advised. For more information, call the [place] Tobacco Quit Line at 2-950-AMHP-NOW. - Diet/Nutrition Diet/Nutrition Orders: Cardiac - Activity Activity Orders: Walker - Services Needed Following services are medically necessary services: Nursing, Home Health Aide, Physical Therapy, Occupational Therapy - Transfer Medications Prescriptions: Simethicone [Gas-X] 80 mg PO TID PRN #30 tab.chew PRN Reason: Dyspepsia Home Medications: Levothyroxine [Synthroid] 75 mcg PO DAILY 04/22/17 [History] Atorvastatin [Lipitor] 40 mg PO HS 05/25/17 [History] Nitroglycerin [Nitrostat] 0.4 mg SL Q5M PRN 08/26/17 [History] amLODIPine [Norvasc] 5 mg PO DAILY 08/26/17 [History] Vitamin E (Dl,Tocopheryl Acet) [Vitamin E] 400 unit PO BID #60 cap 12/17/17 [Rx] Ferrous Sulfate [Iron] 325 mg PO TIDWM 02/12/18 [History] Pantoprazole Sodium [Protonix] 40 mg PO BID 02/12/18 [History] Isosorbide MONOnitrate (24 HR) [Imdur] 60 mg PO DAILY 03/04/18 [History] Metoprolol XL (24 HR) Succ [Toprol Xl] 25 mg PO DAILY 03/05/18 [History] Simethicone [Gas-X] 80 mg PO TID PRN #30 tab.chew 03/09/18 [Rx] Allergies/Adverse Reactions: 3 Allergy/AdvReac Type Severity Reaction Status Date / Time Amoxicillin Allergy Unknown UNKNOWN Verified 03/05/18 06:45 cephalexin [From Keflex] Allergy Unknown UNKNOWN Verified 03/05/18 06:45 Penicillins Allergy Unknown UNKNOWN Verified 03/05/18 06:45 Certification: Further, I certify that my clinical findings support that this patient is homebound (i.e. absences from home require considerable and taxing effort and are for medical reasons or cheondoism services or infrequently or short duration when for other reasons) because: Homebound Reason: Patient requires assistance of a person or device to safely leave home, Leaving home requires considerable and taxing effort due to condition Attestation: My signature below is to certify that this patient is under my care and that I, or nurse practitioner, or a physician's chemist assistant working with me, has a face-to -face encounter with this patient.
[2018-03-09 16:23] VITALS: BP 137/73
--- NOTE | 2018-03-13 09:05 | Electrocardiograph Report ---
[address] [place] [address] Test Date: 2018-03-07 Pat Name: Ciara Tamez Department: 104 Room: 2A Gender: F Photography Coordinator: JERRY : 1935 Requested By: Tobias Emerson MD Order Number: [id number] Reading MD: Juan Regan Measurements Intervals [place] Rate: 57 P: 43 [place]: 254 QRS: -73 QRSD: 157 T: 26 QT: 448 QTc: 443 Interpretive Statements SINUS BRADYCARDIA WITH FIRST DEGREE AV BLOCK RIGHT BUNDLE BRANCH BLOCK LEFT ANTERIOR FASCICULAR BLOCK POSSIBLE SEPTAL MYOCARDIAL INFARCTION, OF INDETERMINATE AGE Electronically Signed On 03-13-2018 9:03:53 EDT by Juan Regan
== END 2018-03-09 17:45 | disposition home health service (06) | DRG 683 ==
LOC: 3ANU → SUATTDRO 22:35 → 2SOUTHHOLD 22:39 → SUATTDRO 03-06 13:43 → 2ANU 03-07 18:03
PROVIDERS: ADMIT Internal Medicine; ATTEND Internal Medicine